=== PATIENT | male | born 1980 | race Caucasian/White ===

== ENCOUNTER → 2019-03-19 09:59 | Outpatient (CLI) | payer MEDICAID, SELFPAY ==
[2019-03-19 09:25] VITALS: BMI 43.7
[2019-03-19 12:37] LABS: Absolute Lymphocyte Count 1.28 X10^3/uL (0.83-4.51); Absolute Neutrophil Count 5.9 X10^3/uL (2.0-7.7); Basophil# 0.04 X10^3/uL; Basophil% 0.5 % (0-1); Eosinophil# 0.06 X10^3/uL; Eosinophils% 0.8 % (0-5); Hematocrit 45.1 % (40-54); Hemoglobin 14.8 g/dL (13.0-16.5); Lymphocyte # 1.28 X10^3/ul (4.0); Lymphocyte % 16.3 % (19-41); Mean Corp Hgb Conc 32.8 g/dL (32-36); Mean Corpuscular Hgb 29.7 pg (27.0-32.0); Mean Corpuscular Volume 90.4 fL (80-94); Monocyte# 0.54 X10^3/uL; Monocyte% 6.9 % (0-10); NRBC Flagged by Analyzer 0 % (0-5); Neutrophil # 5.91 X10^3/uL (2.7-7.7); Neutrophil % 75.1 % (47-70); Platelet Count 270 K/mm3 (150-450); RBC Distribution Width CV 13.5 % (11.6-14.6); RBC Distribution Width SD 44.3 fl (35.1-43.9); Red Blood Count 4.99 M/mm3 (4.6-6.2); White Blood Count 7.9 K/mm3 (4.4-11.0)
[2019-03-19 12:55] LABS: ALB/GLOB Ratio 0.9 RATIO (0.9-2.4); AST(SGOT) 23 U/L (15-37); Alanine Aminotransfer ALT/SGPT 35 U/L (16-61); Albumin, Serum 4.1 g/dL (3.2-5.0); Alkaline Phosphatase 123 U/L (45-117); Anion Gap 9 (5-15); BUN 17 mg/dL (7-18); BUN/Creat Ratio 15.5 RATIO (10-20); Calcium,Total 9.5 mg/dL (8.5-10.1); Chloride 106 mmol/L (98-107); Cholesterol 311 mg/dL (200); EST Glomerular Filtration Rate 79 mL/min (>60); Est Glom Filt Rate - Afr Amer 96 mL/min (>60); Globulin 4.4 g/dL (2.2-4.2); Glucose 91 mg/dL (74-106); High Density Lipoprotein 58 mg/dL; Potassium 4.1 mmol/L (3.5-5.1); Protein, Total 8.5 g/dL (6.4-8.2); Sodium Level 139 mmol/L (136-145); Thyroid Stim Hormone (TSH) 2.94 uIU/mL (0.358-3.74); Triglycerides 133 mg/dL; Very Low Density Lipoprotein 27 mg/dL (5-40)
[2019-03-19 13:35] LABS: Hepatitis B Surface Antigen Non-Reactive (Nonreactive); Hepatitis C Antibody Non-Reactive (Nonreactive)
== END ==
PROVIDERS: PCP Internal Medicine; Referring Provider Nurse Practitioner Family; Visit Provider Nurse Practitioner Family
DX: I10 Essential (primary) hypertension (principal); F19.10 Other psychoactive substance abuse, uncomplicated
CPT/HCPCS: 36415; 80053; 80061; 84443; 85025; 86803; 87340

== ENCOUNTER → 2020-04-14 10:26 | Outpatient (CLI) | payer MEDICAID, SELFPAY ==
[2020-04-14 09:43] VITALS: BMI 57.7
[2020-04-14 13:12] LABS: ALB/GLOB Ratio 0.9 RATIO (0.9-2.4); AST(SGOT) 29 U/L (15-37); Alanine Aminotransfer ALT/SGPT 42 U/L (16-61); Albumin, Serum 3.9 g/dL (3.2-5.0); Alkaline Phosphatase 146 U/L (45-117); Anion Gap 10 (5-15); BUN 17 mg/dL (7-18); Calcium,Total 9.4 mg/dL (8.5-10.1); Chloride 104 mmol/L (98-107); Cholesterol 234 mg/dL (200); Creatinine, Serum 1.21 mg/dL (0.70-1.30); EST Glomerular Filtration Rate 70 mL/min (>60); Est Glom Filt Rate - Afr Amer 85 mL/min (>60); Globulin 4.4 g/dL (2.2-4.2); Glucose 99 mg/dL (74-106); High Density Lipoprotein 46 mg/dL; Potassium 4.1 mmol/L (3.5-5.1); Protein, Total 8.3 g/dL (6.4-8.2); Sodium Level 138 mmol/L (136-145); Triglycerides 250 mg/dL; Very Low Density Lipoprotein 50 mg/dL (5-40)
== END ==
PROVIDERS: PCP Internal Medicine; Referring Provider Nurse Practitioner Family; Visit Provider Nurse Practitioner Family
DX: I10 Essential (primary) hypertension (principal); E78.5 Hyperlipidemia, unspecified
CPT/HCPCS: 36415; 80053; 80061

== ENCOUNTER → 2020-04-17 11:41 | Outpatient (CLI) | payer MEDICAID, SELFPAY ==
[2020-04-14 09:43] VITALS: BMI 57.7
--- NOTE | 2020-04-17 11:46 | RAD_ITS ---
STUDY: X-RAY - LUMBAR SPINE REASON FOR EXAM: Male, 39 years old. Pt states lower back pain x 1 week, no known injury, right sided sciatica TECHNIQUE: 3 view(s) of the lumbar spine were obtained. COMPARISON: None FINDINGS: Normal lumbar lordosis. There is no substantial scoliosis. There is a normal alignment of the vertebrae. There is multilevel endplate spondylosis of the lumbar vertebrae. Normal disc space heights. The soft tissue structures are unremarkable. RAD/Lumbar Spine 2 or 3 Views IMPRESSION: Multilevel endplate spondylosis. Electronically Signed: Rj Medina MD at 15:24 EST , Service support ,
--- NOTE | 2020-04-17 11:47 | EKG12_ITS ---
Test Reason : HTN Blood Pressure : / mmHG Vent. Rate : 104 BPM Atrial Rate : 104 BPM P-R Int : 138 ms QRS Dur : 100 ms QT Int : 352 ms P-R-T Axes : 034 028 033 degrees QTc Int : 462 ms Sinus tachycardia Otherwise normal ECG Confirmed by RICHARD MARIN, ANA CRISTINA ([id number]), assistant film editor RAJAN WALTER ([id number]) on 04/18/2020 11:21:28 AM Referred By: Abdulkadir Mraina Confirmed By:ANA CRISTINA RAMOS MD
== END ==
PROVIDERS: PCP Internal Medicine; Referring Provider Nurse Practitioner Family; Visit Provider Nurse Practitioner Family
DX: M54.41 Lumbago with sciatica, right side (principal); G89.29 Other chronic pain; I10 Essential (primary) hypertension; E78.5 Hyperlipidemia, unspecified; F32.9 Major depressive disorder, single episode, unspecified; E66.01 Morbid (severe) obesity due to excess calories; Z68.44 Body mass index [BMI] 60.0-69.9, adult
CPT/HCPCS: 72100; 93005

== ENCOUNTER 2020-05-15 14:16 | Outpatient (RCR) | payer MEDICAID, SELFPAY ==
[2020-04-14 09:43] VITALS: BMI 57.7
== END 2020-05-24 23:59 ==
LOC: NS 14:16
PROVIDERS: PCP Internal Medicine; Visit Provider Nurse Practitioner Family
DX: Z71.3 Dietary counseling and surveillance (principal); E66.01 Morbid (severe) obesity due to excess calories; Z68.43 Body mass index [BMI] 50.0-59.9, adult
CPT/HCPCS: 97802

== ENCOUNTER 2020-05-29 11:56 | Outpatient (RCR) | payer MEDICAID, SELFPAY ==
[2020-05-16 09:30] VITALS: BMI 56.7
== END 2020-06-23 23:59 ==
LOC: NS 11:56
PROVIDERS: PCP Internal Medicine; Visit Provider Nurse Practitioner Family
DX: Z71.3 Dietary counseling and surveillance (principal); E66.01 Morbid (severe) obesity due to excess calories; Z68.44 Body mass index [BMI] 60.0-69.9, adult
CPT/HCPCS: 97803

== ENCOUNTER → 2020-05-30 09:47 | Outpatient (CLI) | payer MEDICAID, SELFPAY ==
[2020-05-16 09:30] VITALS: BMI 56.7
[2020-05-30 12:13] LABS: Absolute Lymphocyte Count 1.77 X10^3/uL (0.83-4.51); Absolute Neutrophil Count 4.3 X10^3/uL (2.0-7.7); Basophil# 0.03 X10^3/uL; Basophil% 0.4 % (0-1); Eosinophil# 0.09 X10^3/uL; Eosinophils% 1.3 % (0-5); Hematocrit 41.8 % (40-54); Hemoglobin 13.1 g/dL (13.0-16.5); Lymphocyte # 1.77 X10^3/ul (4.0); Lymphocyte % 26.1 % (19-41); Mean Corp Hgb Conc 31.3 g/dL (32-36); Mean Corpuscular Hgb 28.8 pg (27.0-32.0); Mean Corpuscular Volume 91.9 fL (80-94); Mean Platelet Vol. 11.1 fl (6.2-12.0); Monocyte# 0.58 X10^3/uL; Monocyte% 8.6 % (0-10); NRBC Flagged by Analyzer 0 % (0-5); Neutrophil # 4.27 X10^3/uL (2.7-7.7); Neutrophil % 63.2 % (47-70); Platelet Count 257 K/mm3 (150-450); RBC Distribution Width CV 14.2 % (11.6-14.6); RBC Distribution Width SD 47.8 fl (35.1-43.9); Red Blood Count 4.55 M/mm3 (4.6-6.2); White Blood Count 6.8 K/mm3 (4.4-11.0)
[2020-05-30 12:42] LABS: Hemoglobin A1c 5.3 % (3.8-5.6)
[2020-05-30 12:55] LABS: Anion Gap 8 (5-15); BUN 20 mg/dL (7-18); BUN/Creat Ratio 15.5 RATIO (10-20); Calcium,Total 9.2 mg/dL (8.5-10.1); Chloride 105 mmol/L (98-107); Creatinine, Serum 1.29 mg/dL (0.70-1.30); EST Glomerular Filtration Rate 65 mL/min (>60); Est Glom Filt Rate - Afr Amer 79 mL/min (>60); Glucose 100 mg/dL (74-106); Potassium 4.3 mmol/L (3.5-5.1); Sodium Level 137 mmol/L (136-145)
[2020-05-30 16:20] LABS: T4 Free Direct 1.02 ng/dL (0.76-1.46)
== END ==
PROVIDERS: PCP Internal Medicine; Referring Provider Nurse Practitioner Family; Visit Provider Nurse Practitioner Family
DX: I10 Essential (primary) hypertension (principal); E78.5 Hyperlipidemia, unspecified; F32.9 Major depressive disorder, single episode, unspecified; M54.41 Lumbago with sciatica, right side; G89.29 Other chronic pain; R79.89 Other specified abnormal findings of blood chemistry; E66.01 Morbid (severe) obesity due to excess calories; Z68.44 Body mass index [BMI] 60.0-69.9, adult
CPT/HCPCS: 36415; 80048; 83036; 84439; 84443; 85025

== ENCOUNTER → 2020-08-09 10:01 | Outpatient (CLI) | payer MEDICAID, SELFPAY ==
[2020-08-09 09:44] VITALS: BMI 56.7
[2020-08-09 12:44] LABS: AST(SGOT) 20 U/L (15-37); Alanine Aminotransfer ALT/SGPT 29 U/L (16-61); Alkaline Phosphatase 126 U/L (45-117); Anion Gap 9 (5-15); BUN 18 mg/dL (7-18); Calcium,Total 9.6 mg/dL (8.5-10.1); Chloride 106 mmol/L (98-107); Cholesterol 207 mg/dL (200); EST Glomerular Filtration Rate 71 mL/min (>60); Est Glom Filt Rate - Afr Amer 86 mL/min (>60); Globulin 4.2 g/dL (2.2-4.2); Glucose 100 mg/dL (74-106); High Density Lipoprotein 43 mg/dL; Potassium 4.5 mmol/L (3.5-5.1); Protein, Total 8.2 g/dL (6.4-8.2); Sodium Level 138 mmol/L (136-145); Thyroid Stim Hormone (TSH) 2.16 uIU/mL (0.358-3.74); Triglycerides 165 mg/dL; Very Low Density Lipoprotein 33 mg/dL (5-40)
== END ==
PROVIDERS: PCP Internal Medicine; Referring Provider Nurse Practitioner Family; Visit Provider Nurse Practitioner Family
DX: I10 Essential (primary) hypertension (principal); E03.9 Hypothyroidism, unspecified; E78.5 Hyperlipidemia, unspecified; F32.9 Major depressive disorder, single episode, unspecified
CPT/HCPCS: 36415; 80053; 80061; 84443

== ENCOUNTER → 2020-08-31 20:00 | Outpatient (CLI) | payer MEDICAID, SELFPAY ==
[2020-05-16 09:30] VITALS: BMI 56.7
== END ==
PROVIDERS: PCP Internal Medicine; Referring Provider Nurse Practitioner Family; Visit Provider Nurse Practitioner Family
DX: G47.33 Obstructive sleep apnea (adult) (pediatric) (principal)
CPT/HCPCS: 95810

== ENCOUNTER → 2020-11-02 09:33 | Outpatient (CLI) | payer MEDICAID, SELFPAY ==
[2020-11-02 12:20] LABS: Vitamin B12 322 pg/mL (211-911); Vitamin D,25 Hydroxy 29.9 ng/mL
[2020-11-07 13:10] LABS: Testosterone, % Free 2.87 % (1.50-4.20); Testosterone, Total 237 ng/dL (264-916)
== END ==
PROVIDERS: PCP Internal Medicine; Referring Provider Nurse Practitioner Family; Visit Provider Nurse Practitioner Family
DX: R53.83 Other fatigue (principal); E56.9 Vitamin deficiency, unspecified; E03.9 Hypothyroidism, unspecified
CPT/HCPCS: 36415; 82306; 82607; 84402; 84403; 84443

== ENCOUNTER → 2020-11-28 20:00 | Outpatient (CLI) | payer MEDICAID, SELFPAY | PROVIDERS: PCP Internal Medicine; Visit Provider Nurse Practitioner Family | DX: G47.33 Obstructive sleep apnea (adult) (pediatric) (principal) | CPT/HCPCS: 95811 ==

== ENCOUNTER 2021-04-13 12:00 | Outpatient (CLI) | payer MEDICAID, SELFPAY ==
[2021-04-13 15:21] LABS: Thyroid Stim Hormone (TSH) 2.67 uIU/mL (0.358-3.74)
== END 2021-04-13 23:59 | disposition home or self-care (01) ==
LOC: BIMLAB 12:00
PROVIDERS: PCP Internal Medicine; Referring Provider Nurse Practitioner Family; Visit Provider Nurse Practitioner Family
DX: F41.9 Anxiety disorder, unspecified (principal)
CPT/HCPCS: 36415; 84443

== ENCOUNTER → 2021-06-22 | Outpatient (CLI) | payer MEDICAID, SELFPAY ==
[2021-06-22 12:09] LABS: Absolute Lymphocyte Count 1.47 X10^3/uL (0.83-4.51); Basophil# 0.02 X10^3/uL; Basophil% 0.3 % (0-1); Eosinophil# 0.09 X10^3/uL; Eosinophils% 1.5 % (0-5); Hematocrit 40.1 % (40-54); Lymphocyte # 1.47 X10^3/ul (0.83-4.51); Lymphocyte % 24.1 % (19-41); Mean Corp Hgb Conc 32.4 g/dL (32-36); Mean Corpuscular Hgb 29.9 pg (27.0-32.0); Mean Corpuscular Volume 92.2 fL (80-94); Mean Platelet Vol. 11.8 fl (6.2-12.0); Monocyte# 0.55 X10^3/uL; NRBC Flagged by Analyzer 0 % (0-5); Neutrophil # 3.96 X10^3/uL (2.7-7.7); Neutrophil % 64.8 % (47-70); Platelet Count 232 K/mm3 (150-450); Red Blood Count 4.35 M/mm3 (4.6-6.2); White Blood Count 6.1 K/mm3 (4.4-11.0)
[2021-06-22 12:32] LABS: ALB/GLOB Ratio 1.2 RATIO (0.9-2.4); AST(SGOT) 19 U/L (15-37); Alanine Aminotransfer ALT/SGPT 22 U/L (16-61); Alkaline Phosphatase 102 U/L (45-117); Anion Gap 6 (5-15); BUN 24 mg/dL (7-18); BUN/Creat Ratio 21.1 RATIO (10-20); Calcium,Total 8.9 mg/dL (8.5-10.1); Chloride 107 mmol/L (98-107); Cholesterol 183 mg/dL (200); Creatinine, Serum 1.14 mg/dL (0.70-1.30); EST Glomerular Filtration Rate 75 mL/min (>60); Est Glom Filt Rate - Afr Amer 91 mL/min (>60); Globulin 3.4 g/dL (2.2-4.2); Glucose 109 mg/dL (74-106); High Density Lipoprotein 53 mg/dL; Protein, Total 7.4 g/dL (6.4-8.2); Sodium Level 138 mmol/L (136-145); Thyroid Stim Hormone (TSH) 2.99 uIU/mL (0.358-3.74); Triglycerides 138 mg/dL; Very Low Density Lipoprotein 28 mg/dL (5-40)
== END | disposition home or self-care (01) ==
LOC: BIMLAB 09:23
PROVIDERS: PCP Internal Medicine; Referring Provider Nurse Practitioner Family; Visit Provider Nurse Practitioner Family
DX: F31.30 Bipolar disorder, current episode depressed, mild or moderate severity, unspecified (principal); F41.9 Anxiety disorder, unspecified; E03.9 Hypothyroidism, unspecified; E78.5 Hyperlipidemia, unspecified; I10 Essential (primary) hypertension
CPT/HCPCS: 36415; 80053; 80061; 84443; 85025

== ENCOUNTER → 2021-08-24 | Outpatient (CLI) | payer MEDICAID, SELFPAY ==
[2021-08-24 12:52] LABS: Vitamin B12 262 pg/mL (211-911); Vitamin D,25 Hydroxy 33.8 ng/mL
[2021-08-24 12:55] LABS: Thyroid Stim Hormone (TSH) 2.61 uIU/mL (0.358-3.74)
[2021-08-28 13:07] LABS: Testosterone, Free 4.68 ng/dL (5.00-21.00)
[2021-08-28 16:29] LABS: Testosterone, % Free 1.57 % (1.50-4.20); Testosterone, Total 298 ng/dL (264-916)
== END | disposition home or self-care (01) ==
LOC: BIMLAB 08:55
PROVIDERS: PCP Internal Medicine; Referring Provider Nurse Practitioner Family; Visit Provider Nurse Practitioner Family
DX: E88.9 Metabolic disorder, unspecified (principal); F31.30 Bipolar disorder, current episode depressed, mild or moderate severity, unspecified; E56.9 Vitamin deficiency, unspecified; E03.9 Hypothyroidism, unspecified
CPT/HCPCS: 36415; 82306; 82607; 84402; 84403; 84443

== ENCOUNTER → 2021-11-20 | Outpatient (CLI) | payer MEDICAID, SELFPAY | END | disposition home or self-care (01) | LOC: LABSPEC 15:29 | PROVIDERS: PCP Internal Medicine; Referring Provider Nurse Practitioner Family; Visit Provider Nurse Practitioner Family | DX: R50.9 Fever, unspecified (principal) | CPT/HCPCS: 87635; 87633; U0003; U0005 ==

== ENCOUNTER → 2022-03-12 | Outpatient (CLI) | payer MEDICAID, SELFPAY ==
[2022-03-12 16:59] LABS: Absolute Lymphocyte Count 1.53 X10^3/uL (0.83-4.51); Absolute Neutrophil Count 3.4 X10^3/uL (2.0-7.7); Basophil# 0.01 X10^3/uL; Basophil% 0.2 % (0-1); Eosinophil# 0.07 X10^3/uL; Eosinophils% 1.3 % (0-5); Hematocrit 39.6 % (40-54); Hemoglobin 13.1 g/dL (13.0-16.5); Lymphocyte # 1.53 X10^3/ul (0.83-4.51); Lymphocyte % 28.6 % (19-41); Mean Corp Hgb Conc 33.1 g/dL (32-36); Mean Corpuscular Hgb 30.2 pg (27.0-32.0); Mean Corpuscular Volume 91.2 fL (80-94); Mean Platelet Vol. 10.8 fl (6.2-12.0); Monocyte# 0.31 X10^3/uL; Monocyte% 5.8 % (0-10); NRBC Flagged by Analyzer 0 % (0-5); Neutrophil # 3.42 X10^3/uL (2.7-7.7); Neutrophil % 63.9 % (47-70); Platelet Count 216 K/mm3 (150-450); RBC Distribution Width CV 11.9 % (11.6-14.6); RBC Distribution Width SD 39.8 fl (35.1-43.9); Red Blood Count 4.34 M/mm3 (4.6-6.2); White Blood Count 5.4 K/mm3 (4.4-11.0)
[2022-03-12 17:03] LABS: Hemoglobin A1c 4.9 % (3.8-5.6)
[2022-03-12 17:28] LABS: Vitamin B12 423 pg/mL (211-911); Vitamin D,25 Hydroxy 20.2 ng/mL
[2022-03-12 17:32] LABS: ALB/GLOB Ratio 1.1 RATIO (0.9-2.4); AST(SGOT) 18 U/L (15-37); Alanine Aminotransfer ALT/SGPT 23 U/L (16-61); Albumin, Serum 4.2 g/dL (3.2-5.0); Alkaline Phosphatase 91 U/L (45-117); Anion Gap 8 (5-15); BUN 20 mg/dL (7-18); BUN/Creat Ratio 18.9 RATIO (10-20); Calcium,Total 9.1 mg/dL (8.5-10.1); Chloride 102 mmol/L (98-107); Cholesterol 227 mg/dL (200); Creatinine, Serum 1.06 mg/dL (0.70-1.30); EST Glomerular Filtration Rate 81 mL/min (>60); Est Glom Filt Rate - Afr Amer 98 mL/min (>60); Globulin 3.8 g/dL (2.2-4.2); Glucose 88 mg/dL (74-106); High Density Lipoprotein 64 mg/dL; Potassium 4.3 mmol/L (3.5-5.1); Sodium Level 136 mmol/L (136-145); Thyroid Stim Hormone (TSH) 2.02 uIU/mL (0.358-3.74); Triglycerides 115 mg/dL; Very Low Density Lipoprotein 23 mg/dL (5-40)
== END | disposition home or self-care (01) ==
LOC: BIMLAB 16:18
PROVIDERS: PCP Internal Medicine; Referring Provider Nurse Practitioner Family; Visit Provider Nurse Practitioner Family
DX: E56.9 Vitamin deficiency, unspecified (principal); F31.30 Bipolar disorder, current episode depressed, mild or moderate severity, unspecified; E03.9 Hypothyroidism, unspecified; E78.5 Hyperlipidemia, unspecified; I10 Essential (primary) hypertension
CPT/HCPCS: 36415; 80053; 80061; 82306; 82607; 83036; 84443; 85025

== ENCOUNTER → 2022-12-18 | Outpatient (CLI) | payer BC, SELFPAY ==
[2022-12-18 18:20] LABS: Anion Gap 5 (5-15); BUN 28 mg/dL (7-18); BUN/Creat Ratio 27.7 RATIO (10-20); Calcium,Total 9.1 mg/dL (8.5-10.1); Chloride 104 mmol/L (98-107); Creatinine, Serum 1.01 mg/dL (0.70-1.30); EST Glomerular Filtration Rate 86 mL/min (>60); Est Glom Filt Rate - Afr Amer 103 mL/min (>60); Glucose 84 mg/dL (74-106); Potassium 4.6 mmol/L (3.5-5.1); Sodium Level 137 mmol/L (136-145)
== END | disposition home or self-care (01) ==
LOC: BIMLAB 16:00
PROVIDERS: PCP Internal Medicine; Referring Provider Internal Medicine; Visit Provider Internal Medicine
DX: E03.9 Hypothyroidism, unspecified (principal); I10 Essential (primary) hypertension
CPT/HCPCS: 36415; 80048; 84443

== ENCOUNTER → 2023-03-27 | Outpatient (CLI) | payer BC, SELFPAY ==
[2023-03-27 12:19] LABS: Absolute Lymphocyte Count 0.22 X10^3/uL (0.83-4.51); Absolute Neutrophil Count 3.1 X10^3/uL (2.0-7.7); Basophil# 0.01 X10^3/uL; Basophil% 0.3 % (0-1); Eosinophil# 0.02 X10^3/uL; Eosinophils% 0.5 % (0-5); Hematocrit 37.5 % (40-54); Hemoglobin 12.2 g/dL (13.0-16.5); Lymphocyte # 0.22 X10^3/ul (0.83-4.51); Lymphocyte % 5.7 % (19-41); Mean Corp Hgb Conc 32.5 g/dL (32-36); Mean Corpuscular Hgb 30.3 pg (27.0-32.0); Mean Corpuscular Volume 93.1 fL (80-94); Mean Platelet Vol. 11.1 fl (6.2-12.0); Monocyte# 0.56 X10^3/uL; Monocyte% 14.4 % (0-10); NRBC Flagged by Analyzer 0 % (0-5); Neutrophil # 3.05 X10^3/uL (2.7-7.7); Neutrophil % 78.6 % (47-70); POSITIVE DIFFERENTIAL YES; Platelet Count 173 K/mm3 (150-450); RBC Distribution Width SD 44.7 fl (35.1-43.9); Red Blood Count 4.03 M/mm3 (4.6-6.2); White Blood Count 3.9 K/mm3 (4.4-11.0)
[2023-03-27 12:42] LABS: D-Dimer Quantitative (DVT/PE) 1.02 FEU/ug/m (0.27-0.49)
== END | disposition home or self-care (01) ==
LOC: BIMLAB 11:40
PROVIDERS: PCP Internal Medicine; Referring Provider Nurse Practitioner; Visit Provider Nurse Practitioner
DX: I26.99 Other pulmonary embolism without acute cor pulmonale (principal); R05.9 Cough, unspecified; R07.81 Pleurodynia
CPT/HCPCS: 36415; 85025; 85379; 87631

== ENCOUNTER → 2023-03-28 | Outpatient (CLI) | payer BC, SELFPAY ==
--- NOTE | 2023-03-28 10:40 | CT_ITS ---
STUDY: CTA CHEST REASON FOR EXAM: Male, 42 years old. Elevated d-dimer, cough, pleuritic chest pain, hx -- hx of PE RADIATION DOSAGE (If Supplied By Facility): CTDIvol = ( 12.79 ) mGy, DLP = ( 557.21 ) mGycm TECHNIQUE: The examination was performed with the intravenous administration of IV 100mL Isovue-370. Post-processing of the angiographic images was performed, with multiplanar reformation and 3D reconstruction. Individualized dose optimization techniques were used for this CT. COMPARISON: None. FINDINGS: Normal enhancement of the main pulmonary artery and right and left pulmonary arteries. Normal enhancement of the bilateral peripheral pulmonary arteries. There is no demonstrated pulmonary embolism. Normal thoracic aorta and visualized great vessels. There is no demonstrated aortic dissection. Normal heart and pericardium. Normal mediastinum. Normal hilar regions. Normal visualized trachea and bronchi. The lungs are well expanded. Normal pulmonary parenchyma. Normal pleura. Normal chest wall structures. There are degenerative changes of thoracic spine. Small hiatal hernia. CT/CTA Chest W/WO Contrast IMPRESSION: Normal CTA chest examination, without a demonstrated pulmonary embolism or arterial dissection. Electronically Signed: Rj Medina MD at 12:02 [facility] ,
[2023-03-28 10:58] LABS: CREATININE FINGERSTICK < 1.0 mg/dL (0.70-1.30); EGFR FINGERSTICK > 60.0000 mL/min (>60)
== END | disposition home or self-care (01) ==
LOC: CT 10:30
PROVIDERS: PCP Internal Medicine; Referring Provider Nurse Practitioner; Visit Provider Nurse Practitioner
DX: R07.81 Pleurodynia (principal); R05.9 Cough, unspecified; R79.1 Abnormal coagulation profile; Z86.711 Personal history of pulmonary embolism
CPT/HCPCS: 71275; Q9967

== ENCOUNTER → 2023-04-10 | Outpatient (CLI) | payer BC, SELFPAY ==
[2023-04-10 17:28] LABS: ALB/GLOB Ratio 1.3 RATIO (0.9-2.4); AST(SGOT) 23 U/L (15-37); Alanine Aminotransfer ALT/SGPT 22 U/L (16-61); Albumin, Serum 4.2 g/dL (3.2-5.0); Alkaline Phosphatase 93 U/L (45-117); Anion Gap 3 (5-15); BUN 17 mg/dL (7-18); BUN/Creat Ratio 15.7 RATIO (10-20); Calcium,Total 9.1 mg/dL (8.5-10.1); Chloride 105 mmol/L (98-107); Cholesterol 211 mg/dL (200); Creatinine, Serum 1.08 mg/dL (0.70-1.30); EST Glomerular Filtration Rate 79 mL/min (>60); Est Glom Filt Rate - Afr Amer 96 mL/min (>60); Globulin 3.2 g/dL (2.2-4.2); Glucose 92 mg/dL (74-106); High Density Lipoprotein 81 mg/dL; Potassium 4.9 mmol/L (3.5-5.1); Protein, Total 7.4 g/dL (6.4-8.2); Sodium Level 138 mmol/L (136-145); Thyroid Stim Hormone (TSH) 2.84 uIU/mL (0.358-3.74); Triglycerides 53 mg/dL; Very Low Density Lipoprotein 11 mg/dL (5-40)
--- OUTSIDE RECORDS SUMMARY | 2023-04-10 21:12 | XMS RPT_ITS | CCD ---
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 Name Role Phone MARTHALYNN ORTIZ Admitting Unavailable LYNN THOMAS Attending Unavailable LYNN THOMAS Primary Care Unavailable MESFIN RICKS Consulting Unavailable PROVIDER, UNKNOWN Consulting Unavailable PROVIDER, UNKNOWN Consulting Unavailable PROVIDER, UNKNOWN Consulting Unavailable LEILA SAWYER CNP Admitting Unavailable LEILA SAWYER CNP Attending Unavailable LEILA SAWYER CNP Primary Care Unavailable MESFIN RICKS Consulting Unavailable PROVIDER, UNKNOWN Consulting Unavailable PROVIDER, UNKNOWN Consulting Unavailable PROVIDER, UNKNOWN Consulting Unavailable VAHID GAVIRIA MD Admitting Unavailable VAHID GAVIRIA MD Attending Unavailable VAHID GAVIRIA MD Primary Care Unavailable LEILA SAWYER CNP Referring Unavailable LEILA SAWYER CNP Consulting Unavailable PROVIDER, UNKNOWN Consulting Unavailable PROVIDER, UNKNOWN Consulting Unavailable PRESTON LANGSTON Admitting Unavailable PRESTON LANGSTON Attending Unavailable LEILA SAWYER CNP Referring Unavailable PRESTON LANGSTON Primary Care Unavailable LEILA SAWYER CNP Consulting Unavailable PROVIDER, UNKNOWN Consulting Unavailable PROVIDER, UNKNOWN Consulting Unavailable SILVERIO BEER MAKER-LEILA MONCADA Primary Care Physicia n Allergies Allergy Classification Reported Allergen(s) Allergy Type Date of Onset Reaction(s) Facility (1 source) Penicillins Drug allergy (disorder) [facility] Repository (2 sources) Penicillin; Translations: [penicillin] Drug Allergy [facility] Medications Current Medications Medication Drug Class(es) Dates Sig (Normalized) Sig (Original) BuPROPion (Eqv-Wellbutrin SR) 150 mg/12 hours oral tablet, extended release (1 source) Start: 05-23-19 take 1 tablet by mouth once daily BuPROPion (Eqv-Wellbutrin SR) 150 mg/12 hours oral tablet, extended release Dose : 150 mg =, Oral, qDay, 0 Refill(s) Start Date: 05/22/21 Status: Ordered busPIRone hydrochloride 15 mg oral tablet (1 source) Start: 05-23-19 busPIRone 15 mg oral tablet Dose : 15 mg = 1 tab(s), Oral, TID, 0 Refill(s) Start Date: 05/22/21 Status: Ordered hydroCHLOROthiazide 25 mg oral tablet (1 source) Thiazide Diuretic Start: 05-23-19 hydroCHLOROthiazide 25 mg oral tablet Dose : 25 mg = 1 tab(s), Oral, qDay, 0 Refill(s) Start Date: 05/22/21 Status: Ordered hydrOXYzine hydrochloride 25 mg oral tablet (1 source) Antihistamine Start: 05-23-19 hydrOXYzine hydrochloride 25 mg oral tablet Dose : 25 mg = 1 tab(s), Oral, Daily, # 0 tab(s), 0 Refill(s) Start Date: 05/22/21 Status: Ordered lisinopril 40 mg oral tablet (1 source) Angiotensin Converting Enzyme Inhibitor Start: 05-23-19 lisinopril 40 mg oral tablet Dose : 40 mg = 1 tab(s), Oral, qDay, # 30 tab(s), 0 Refill(s) Start Date: 05/22/21 Status: Ordered propranolol hydrochloride 20 mg oral tablet (1 source) beta-Adrenergic Irina Start: 05-23-19 propranolol 20 mg oral tablet Dose : 20 mg = 1 tab(s), Oral, BID, # 180 tab(s), 0 Refill(s) Start Date: 05/22/21 Status: Ordered rosuvastatin calcium 10 mg oral tablet (1 source) HMG-CoA Reductase Inhibitor Start: 05-23-19 rosuvastatin 10 mg oral tablet Dose : 10 mg = 1 tab(s), Oral, qDay, # 30 tab(s), 0 Refill(s) Start Date: 05/22/21 Status: Ordered Completed/Discontinued Medications Medication Drug Class(es) Dates Sig (Normalized) Sig (Original) LORazepam 0.5 mg oral tablet (2 sources) Benzodiazepine Start: 05-22-2021 LORazepam 0.5 mg oral tablet Dose : 0.25 mg = 0.5 tab(s), Oral, BID, 0 Refill(s), 163.2 Start Date: 05/22/21 Status: Ordered Problems Active Problems Problem Classification Problem Date Documented Da te Episodic/Chronic Anxiety disorders (1 source) Anxiety disorder; Translations: [Anxiety disorder, unspecified] Onset: 04-09-2021 Chronic Conditions associated with dizziness or vertigo (1 source) Dizziness and giddiness; Translations: [Dizziness and giddiness] Onset: 04-09-2021 Episodic Mood disorders (1 source) Major depressive disorder, single episode, unspecified; Translations: [Major depressive disorder, single episode, unspecified] Onset: 10-08-2018 Other lower respiratory disease (1 source) Dyspnea; Translations: [Dyspnea, unspecified] Onset: 04-09-2021 Episodic Other screening for suspected conditions (not mental disorders or infectious disease) (2 sources) Encounter for screening for lipoid disorders; Translations: [Other specified abnormal findings of blood chemistry] Onset: 02-24-2018 Episodic Past or Other Problems Problem Classification Problem Date Documented Da te Episodic/Chronic Other lower respiratory disease (2 sources) Shortness of breath; Translations: [Shortness of breath] Onset: 02-24-2018 Episodic Other lower respiratory disease (1 source) Solitary pulmonary nodule; Translations: [Solitary pulmonary nodule] Onset: 02-24-2018 Episodic Pulmonary heart disease (1 source) Other pulmonary embolism without acute cor pulmonale; Translations: [Other pulmonary embolism without acute cor pulmonale] Onset: 02-24-2018 Episodic Syncope (1 source) Syncope and collapse; Translations: [Syncope and collapse] Onset: 02-24-2018 Episodic Results Test Name Value Interpretation Reference Range Facil ity Vital Signs Date Time Vital Sign Value Performing Clinician Faci lity 05-22-2021 09:45-0400 Body temperature 98.42 [degF] CHILO WHITMORE DO [facility] 05-22-2021 09:45-0400 Body weight 163.2 [facility] 05-22-2021 09:45-0400 Diastolic blood pressure 101 mm[Hg] CHILO CRT DO [facility] 05-22-2021 09:45-0400 Heart rate 77 /min CHILO CRT DO [facility] 05-22-2021 09:45-0400 Mean blood pressure 119 mm[Hg] CHILO CRT DO [facility] 05-22-2021 09:45-0400 Respiratory rate 16 /min CHILO CRT DO [facility] 05-22-2021 09:45-0400 Systolic blood pressure 156 mm[Hg] CHILO WHITMORE DO [facility] 04-09-2021 13:59-0500 Diastolic blood pressure 90 mm[Hg] DR BRADY PASCAL MD [facility] 04-09-2021 13:59-0500 Heart rate 88 /min DR BRADY PASCAL MD [facility] 04-09-2021 13:59-0500 Respiratory rate 20 /min DR BRADY PASCAL MD [facility] 04-09-2021 13:59-0500 Systolic blood pressure 159 mm[Hg] DR BRADY PASCAL MD [facility] 04-09-2021 13:47-0500 Diastolic blood pressure 83 mm[Hg] DR BRADY PASCAL MD [facility] 04-09-2021 13:47-0500 Heart rate 96 /min DR BRADY PASCAL MD [facility] 04-09-2021 13:47-0500 Respiratory rate 20 /min DR BRADY PASCAL MD [facility] 04-09-2021 13:47-0500 Systolic blood pressure 174 mm[Hg] DR BRADY PASCAL MD [facility] 04-09-2021 12:45-0500 Body temperature 98.06 [degF] DR BRADY PASCAL MD [facility] 04-09-2021 12:45-0500 Diastolic blood pressure 93 mm[Hg] DR BRADY PASCAL MD [facility] 04-09-2021 12:45-0500 Heart rate 98 /min DR BRADY PASCAL MD [facility] 04-09-2021 12:45-0500 Respiratory rate 22 /min DR BRADY PASCAL MD [facility] 04-09-2021 12:45-0500 Systolic blood pressure 190 mm[Hg] DR BRADY PASCAL MD [facility] Encounters Encounter Date Encounter Type Care Provider Facility Start: 05-22-2021 End: 05-22-2021 Emergency department patient visit CHILO WHITMORE [facility] Start: 04-09-2021 End: 04-09-2021 Emergency department patient visit DR BRADY PASCAL MD [facility] Start: 10-08-2018 End: 10-08-2018 Emergency department patient visit PRESTON LANGSTON [facility] Start: 10-08-2018 Patient encounter procedure LEILA SAWYER [facility] Start: 04-17-2018 End: 04-17-2018 [facility] Start: 02-24-2018 End: 02-24-2018 Emergency department patient visit LYNN THOMAS [facility] Procedures Date Procedure Procedure Detail Performing Clinician Start: 10-08-2018 Microscopic examinat ion of blood, culture LYNN THOMAS Payers Date Payer Category Payer Unknown [id number] 1980 Unknown [id number] 1980 Unknown [id number] 1980 Unknown [id number] Medicaid [id number] Unknown [id number] Social History Date Type Detail Facility [facility] Sex Assigned At [facility] Start: 05-22-2021 Tobacco smoking status Never s moked tobacco (finding) [facility] Functional Status Date Assessment Result Facility 05-22-2021 Functional Status [facility] Mental Status Date Assessment Result Facility 05-22-2021 Mental Status [facility] Discharge instructions 05-22-2021 Note Date & Type Note Facility 05-22-2021 Hospital Discharg e instructions Patient Education 05/22/2021 11:13:34 Blurred Vision Blurred Vision Blurred vision is when your vision is no longer sharp and you can t see small details. Any changes in your vision, whether sudden or over time, should be checked out by an eyelet cutter. Vision changes can be caused by many things. These include eye diseases, side effects of some medicines, or a condition such as diabetes. Never ignore vision changes. People often think that vision changes occur because they need more powerful vision correction. Many people then delay seeing their healthcare provider about their vision changes. But it s risky to delay care. If left untreated, some eye problems can lead to lasting (permanent) vision loss that can t be corrected with glasses. This can significantly reduce quality of life. Home care Make changes in your home to reduce the risk of falling: Keep walkways clear of objects you may trip over. Use nonslip pads under rugs. Brighter lighting in your home may help you see better. Don t walk in poorly lit areas. Be careful when stepping up and down from curbs and walking on uneven sidewalks. Follow-up care Follow up with an eyelet cutter or as advised. There are two types of eye doctors you can consult: Precision Grinder External. This is a licensed doctor of optometry. Optometrists are not medical doctors. They specialize in eye exams and may diagnose some eye problems. They also prescribe glasses and contact lenses. Risk Management Specialist. This is a medical doctor who specializes in eye care. Ophthalmologists diagnose and treat all eye diseases, prescribe medicines, and perform eye surgery. They may also prescribe glasses and contact lenses. An bin filler can provide a basic screening eye exam for much less cost than an wildlife protector. The bin filler can tell you if your condition needs the services of an wildlife protector. When to seek medical advice Call your healthcare provider right away if any of these occur: Sudden change in your vision Eye pain, redness, or discharge from your eyelid Blurriness doesn t get better, or it gets worse Dark spots in your field of vision Halos around lights Dots or strings (called floaters) moving across your field of vision Sudden flash of light inside your eye Vision dims Part or full vision loss [id number] [employer]. [address] [place] [address]. All rights reserved. This information is not intended as a substitute for professional medical care. Always follow your healthcare professional's instructions. Follow Up Care 05/22/2021 09:37:10 With:[facility] Address: [address] [place] [id number]- When:2-4 days With:[facility] Address: When:2-4 days [facility] Hospital Discharge instructions 04-09-2021 Note Date & Type Note Facility 04-09-2021 Hospital Discharg e instructions Patient Education 04/09/2021 14:01:12 Anxiety Reaction Anxiety Reaction Anxiety is the feeling we all get when we think something bad might happen. It is a normal response to stress and usually causes only a mild reaction. When anxiety becomes more severe, it can interfere with daily life. In some cases, you may not even be aware of what it is you re anxious about. There may also be a genetic link or it may be a learned behavior in the home. Both psychological and physical triggers cause stress reaction. It's often a response to fear or emotional stress, real or imagined. This stress may come from home, family, work, or social relationships. During an anxiety reaction, you may feel: Helpless Nervous Depressed Irritable Your body may show signs of anxiety in many ways. You may experience: Dry mouth Shakiness Dizziness Weakness Trouble breathing Breathing fast (hyperventilating) Chest pressure Sweating Headache Nausea Diarrhea Tiredness Inability to sleep Sexual problems Home care Try to locate the sources of stress in your life. They may not be obvious. These may include: oDaily hassles of life (such as traffic jams, missed appointments, or car troubles) oMajor life changes, both good (new baby or job promotion) and bad (loss of job or loss of loved one) oOverload: feeling that you have too many responsibilities and can't take care of all of them at once oFeeling helpless or feeling that your problems are beyond what you re able to solve Notice how your body reacts to stress. Learn to listen to your body signals. This will help you take action before the stress becomes severe. When you can, do something about the source of your stress. (Avoid hassles, limit the amount of change that happens in your life at one time and take a break when you feel overloaded). Unfortunately, many stressful situations can't be avoided. It is necessary to learn how to better manage stress. There are many proven methods that will reduce your anxiety. These include simple things like exercise, good nutrition, and adequate rest. Also, there are certain techniques that are helpful: oRelaxation oBreathing exercises oVisualization oBiofeedback oMeditation For more information about this, consult your healthcare provider or go to a local bookstore and review the many books and tapes available on this subject. Follow-up care If you feel that your anxiety is not responding to self-help measures, contact your healthcare provider or make an appointment with a counselor. You may need short-term psychological counseling and temporary medicine to help you manage stress. Call 911 Call 911 if any of these happen: Trouble breathing Confusion Drowsiness or trouble wakening Fainting or loss of consciousness Rapid heart rate Seizure New chest pain that becomes more severe, lasts longer, or spreads into your shoulder, arm, neck, jaw, or back When to seek medical advice Call your healthcare provider right away if any of these happen: Your symptoms get worse Severe headache not relieved by rest and mild pain reliever [id number] [employer]. [address] [place] [address]. All rights reserved. This information is not intended as a substitute for professional medical care. Always follow your healthcare professional's instructions. 04/09/2021 14:01:05 Shortness of Breath (Dyspnea) Shortness of Breath (Dyspnea) Shortness of breath is the feeling that you can't catch your breath or get enough air. It is also known as dyspnea. Dyspnea can be caused by many different conditions. They include: Acute asthma attack Worsening of chronic lung diseases such as chronic bronchitis and emphysema Heart failure. This is when weak heart muscle allows extra fluid to collect in the lungs. Panic attacks or anxiety. Fear can cause rapid breathing (hyperventilation). Pneumonia, or an infection in the lung tissue Exposure to toxic substances, fumes, smoke, or certain medicines Blood clot in the lung (pulmonary embolism). This is often from a piece of blood clot in a deep vein of the leg (deep vein thrombosis) that breaks off and travels to the lungs. Heart attack or heart-related chest pain (angina) Anemia Collapsed lung (pneumothorax) Dehydration Based on your visit today, the exact cause of your shortness of breath is not certain. Your tests don t show any of the serious causes of dyspnea. You may need other tests to find out if you have a serious problem. It s important to watch for any new symptoms or symptoms that get worse. Follow up with your healthcare provider as directed. Home care Follow these tips to take care of yourself at home: When your symptoms are better, go back to your usual activities. If you smoke, you should stop. Join a quit-smoking program or ask your healthcare provider for help. Eat a healthy diet and get plenty of sleep. Get regular exercise. Talk with your healthcare provider before starting to exercise, especially if you have other medical problems. Cut down on the amount of caffeine and stimulants you consume. Follow-up care Follow up with your healthcare provider, or as advised. If tests were done, you will be told if your treatment needs to be changed. You can call as directed for the results. If an X-ray was taken, a specialist will review it. You will be notified of any new findings that may affect your care. Call 911 Shortness of breath may be a sign of a serious medical problem. For example, it may be a problem with your heart or lungs. Call 911 if you have worsening shortness of breath or trouble breathing, especially with any of the symptoms below: Confusion or difficulty waking Fainting or loss of consciousness. Fast or irregular heartbeat Coughing up blood Pain in your chest, arm, shoulder, neck, or upper back Sweating When to seek medical advice Call your healthcare provider right away if any of these occur: Slight shortness of breath or wheezing Redness, pain or swelling in your leg, arm, or other body area Swelling in both legs or ankles Fast weight gain Dizziness or weakness Fever of 100.4 F (38 C) or higher, or as directed by your healthcare provider [phone] [employer]. [address] [facility], [place] [address]. All rights reserved. This information is not intended as a substitute for professional medical care. Always follow your healthcare professional's instructions. 04/09/2021 14:00:26 DIZZINESS, Unk Cause Dizziness [Uncertain Cause] Dizziness is a common symptom sometimes described as lightheadedness or feeling like you are going to faint. If it lasts for only a few seconds and is related to changes in position (such as getting up after lying or sitting for a long time), it is usually not a sign of anything serious. Dizziness that lasts for minutes to hours, or comes on for no apparent reason, may be a sign of a more serious problem (such as dehydration, a medicine reaction, disease of the heart or brain). Today's exam did not show an exact cause for your dizzy spell . Sometimes additional tests are required before a cause can be found. Therefore, it is important to follow up with your doctor if your symptoms continue. Home Care: 1) If a dizzy spell occurs and lasts more than a few seconds, lie down until it passes. If you are lying down, then you cannot hurt yourself by falling if you do faint. 2) Do not drive or operate dangerous equipment until the dizzy spells have stopped for at least 48 hours. 3) If dizzy spells occur with sudden standing, this may be a sign of mild dehydration. Drink extra fluids over the next few days. 4) If you recently started a new medicine or if you had the dose of a current medicine increased (especially blood pressure medicine), talk with the prescribing doctor about your symptoms. Dose adjustments may be needed. Follow Up with your doctor for further evaluation within the next seven days, if your symptoms continue. Get Prompt Medical Attention if any of the following occur: -- Worsening of your symptoms -- Fainting, headache or seizure -- Repeated vomiting -- Feeling like you or the room is spinning -- Chest, arm, neck, back or jaw pain -- Palpitations (the sense that your heart is fluttering or beating fast or hard) -- Shortness of breath -- Blood in vomit or stool (black or red color) -- Weakness of an arm or leg or one side of the face -- Difficulty with speech or vision [id number] [employer]. [address] [place] [address], [place] [address]. All rights reserved. This information is not intended as a substitute for professional medical care. Always follow your healthcare professional's instructions. Follow Up Care 04/09/2021 12:43:46 With:LEILA SAWYER Address: [address] [place] [address] [place] [phone] Business (1) When:2-4 days Comments:Return to ED if symptoms worsen [facility] Evaluation + Plan note Note Date & Type Note Facility Evaluation + Plan note No data available for this section [facility] Progress note Note Date & Type Note Facility Progress note No data available for this section [facility] Summary Purpose Family History No Family History Records FoundNo Family History Records Found Advance Directives No Advanced Directives Records FoundNo Advanced Directives Records Found Additional Source Comments (unrecognized sect ion and content) No Status Records FoundNo Status Records Found INFORMATION SOURCE (unrecogn ized section and content) DATE CREATED AUTHOR AUTHOR'S ORGANIZ ATION 06/11/2021 [facility] ([place]) Care Team (unrecognized sect ion and content) Personnel Name: LEILA SAWYER BEER MAKER-MOLD CLOSER HELPER Address: [address] [place] [id number] FOR RECORDS PERTAINING TO PATIENTS WHO ARE OR HAVE BEEN ENROLLED IN A CHEMICAL DEPENDENCY/SUBSTANCEABUSE PROGRAM, SOME INFORMATION MAY BE OMITTED. This clinical summary was aggregated from multiple sources. Caution should be exercised in using it in the provision of clinical care. This summary normalizes information from multiple sources, and as a consequence, information in this document may materially change the coding, format and clinical context of patient data. In addition, data may be omitted in some cases. CLINICAL DECISIONS SHOULD BE BASED ON THE PRIMARY CLINICAL RECORDS. [employer] [facility]. provides no warranty or guarantee of the accuracy or completeness of information in this document.
== END | disposition home or self-care (01) ==
LOC: BIMLAB 16:13
PROVIDERS: PCP Internal Medicine; Visit Provider Internal Medicine
DX: E78.5 Hyperlipidemia, unspecified (principal); E03.9 Hypothyroidism, unspecified
CPT/HCPCS: 36415; 80053; 80061; 84443

== ENCOUNTER → 2023-10-03 | Outpatient (CLI) | payer BC, SELFPAY ==
[2023-10-03 16:46] LABS: Absolute Lymphocyte Count 0.87 X10^3/uL (0.83-4.51); Absolute Neutrophil Count 3.3 X10^3/uL (2.0-7.7); Basophil# 0.02 X10^3/uL; Basophil% 0.4 % (0-1); Eosinophil# 0.05 X10^3/uL; Eosinophils% 1.1 % (0-5); Hematocrit 37.1 % (40-54); Hemoglobin 12.4 g/dL (13.0-16.5); Lymphocyte # 0.87 X10^3/ul (0.83-4.51); Lymphocyte % 19.2 % (19-41); Mean Corp Hgb Conc 33.4 g/dL (32-36); Mean Corpuscular Hgb 31.3 pg (27.0-32.0); Mean Corpuscular Volume 93.7 fL (80-94); Mean Platelet Vol. 11.3 fl (6.2-12.0); Monocyte% 6.6 % (0-10); NRBC Flagged by Analyzer 0 % (0-5); Neutrophil # 3.28 X10^3/uL (2.7-7.7); Neutrophil % 72.5 % (47-70); Platelet Count 206 K/mm3 (150-450); RBC Distribution Width CV 12.1 % (11.6-14.6); RBC Distribution Width SD 41.9 fl (35.1-43.9); Red Blood Count 3.96 M/mm3 (4.6-6.2); White Blood Count 4.5 K/mm3 (4.4-11.0)
[2023-10-03 17:03] LABS: ALB/GLOB Ratio 1.1 RATIO (0.9-2.4); AST(SGOT) 18 U/L (15-37); Alanine Aminotransfer ALT/SGPT 21 U/L (16-61); Alkaline Phosphatase 70 U/L (45-117); Anion Gap 5 (5-15); BUN 19 mg/dL (7-18); BUN/Creat Ratio 16.8 RATIO (10-20); Calcium,Total 8.8 mg/dL (8.5-10.1); Chloride 108 mmol/L (98-107); Creatinine, Serum 1.13 mg/dL (0.70-1.30); EST Glomerular Filtration Rate 75 mL/min (>60); Est Glom Filt Rate - Afr Amer 91 mL/min (>60); Globulin 3.6 g/dL (2.2-4.2); Glucose 97 mg/dL (74-106); Potassium 4.4 mmol/L (3.5-5.1); Protein, Total 7.6 g/dL (6.4-8.2); Sodium Level 140 mmol/L (136-145)
== END | disposition home or self-care (01) ==
LOC: BIMLAB 15:43
PROVIDERS: PCP Internal Medicine; Referring Provider Internal Medicine; Visit Provider Internal Medicine
DX: I10 Essential (primary) hypertension (principal)
CPT/HCPCS: 36415; 80053; 85025

== ENCOUNTER → 2024-01-08 | Outpatient (CLI) | payer BC, SELFPAY ==
[2024-01-08 17:30] LABS: Absolute Lymphocyte Count 1.69 X10^3/uL (0.83-4.51); Absolute Neutrophil Count 3.1 X10^3/uL (2.0-7.7); Basophil# 0.02 X10^3/uL; Basophil% 0.4 % (0-1); Eosinophil# 0.04 X10^3/uL; Eosinophils% 0.8 % (0-5); Hematocrit 35.3 % (40-54); Hemoglobin 11.9 g/dL (13.0-16.5); Lymphocyte # 1.69 X10^3/ul (0.83-4.51); Lymphocyte % 32.3 % (19-41); Mean Corp Hgb Conc 33.7 g/dL (32-36); Mean Corpuscular Hgb 31.5 pg (27.0-32.0); Mean Corpuscular Volume 93.4 fL (80-94); Mean Platelet Vol. 11.6 fl (6.2-12.0); Monocyte# 0.38 X10^3/uL; Monocyte% 7.3 % (0-10); NRBC Flagged by Analyzer 0 % (0-5); Platelet Count 208 K/mm3 (150-450); RBC Distribution Width CV 12.2 % (11.6-14.6); Red Blood Count 3.78 M/mm3 (4.6-6.2); White Blood Count 5.2 K/mm3 (4.4-11.0)
[2024-01-08 17:49] LABS: ALB/GLOB Ratio 1.1 RATIO (0.9-2.4); AST(SGOT) 17 U/L (15-37); Alanine Aminotransfer ALT/SGPT 20 U/L (16-61); Albumin, Serum 4.2 g/dL (3.2-5.0); Alkaline Phosphatase 71 U/L (45-117); Anion Gap 7 (5-15); BUN 19 mg/dL (7-18); BUN/Creat Ratio 16.7 RATIO (10-20); Calcium,Total 9.1 mg/dL (8.5-10.1); Chloride 102 mmol/L (98-107); Creatinine, Serum 1.14 mg/dL (0.70-1.30); EST Glomerular Filtration Rate 74 mL/min (>60); Est Glom Filt Rate - Afr Amer 90 mL/min (>60); Globulin 3.7 g/dL (2.2-4.2); Glucose 95 mg/dL (74-106); Potassium 4.5 mmol/L (3.5-5.1); Protein, Total 7.9 g/dL (6.4-8.2); Sodium Level 138 mmol/L (136-145)
[2024-01-09 13:25] LABS: Ferritin 194 ng/mL (26-388); Iron 98 ug/dL (65-175); Iron Binding Capacity,Total 411 ug/dL (250-450)
[2024-01-09 15:16] LABS: Vitamin B12 487 pg/mL (211-911)
== END | disposition home or self-care (01) ==
LOC: BIMLAB 15:41
PROVIDERS: PCP Internal Medicine; Referring Provider Internal Medicine; Visit Provider Internal Medicine
DX: D64.9 Anemia, unspecified (principal); E03.9 Hypothyroidism, unspecified
CPT/HCPCS: 36415; 80053; 82607; 82728; 82746; 83540; 83550; 84443; 85025

== ENCOUNTER 2024-02-17 15:29 | Emergency (ER) | payer BC, SELFPAY ==
[2024-02-17 15:30] VITALS: BP 109/68; PULSE 65; RESP 15; TEMP 36.7; O2SAT 100; BMI 33.2
[2024-02-17] MEDS: Ondansetron ODT 4 MG Tablet 8 MG PO (15:53)
--- NOTE | 2024-02-17 15:53 | ED.VIS.GI ---
HPI HPI - GI History of Present Illness Chief Complaint: Nausea/Vomiting/Diarrhea Informant: patient Nausea/Vomiting/Emesis GI Symptom: Positive for Nausea and Vomiting Onset: Days Severity: Mild Diarrhea/Melena/Hematochezia GI Symptom: Positive for Diarrhea; Negative for Melena or Hematochezia Onset: Days Stool Quality: Positive for Loose Severity: Mild Associated Symptoms Associated Symptoms: Negative for Dysuria, Frequency, Hematuria or Urgency Narrative Narrative: 43-year-old male history of hypertension and bipolar. States he has had nausea, vomiting and diarrhea with a fever as high as 103 the last 3 to 4 days. No vomiting today. Denies abdominal pain other than some mild cramping. No dysuria. He has had decreased p.o. intake recently. Denies any prior abdominal surgeries. Prior similar symptoms: Yes Recent Illness/Hospitalization: No PFSH PFSH Medical History Anemia Bipolar depression URI (upper respiratory infection) Chest congestion Obesity (BMI 30-39.9) Anxiety and depression Cervical radiculopathy Cervical strain Hypogonadism Vitamin deficiency Dental infection Bipolar affect, depressed Metabolic disorder Anxiety Allergic rhinitis Vitamin deficiency Fatigue JOSEPHINE (obstructive sleep apnea) Hypothyroidism Hyperlipidemia HTN (hypertension) History of cellulitis History of separation anxiety Depression Blood clot in vein Pulmonary embolism High blood pressure Frequent headaches Drug abuse History of back problems Home Medications ?Medication ?Instructions ?Recorded ?Last Taken ?Type hydroxyzine HCl 25 mg tablet 25 mg PO TID PRN anxiety #60 tabs 08/10/21 Unknown Rx scopolamine base 1 mg over 3 days 1 patch transdermal Q3D PRN motion 12/05/21 Unknown Rx transdermal patch sickness #24 ea sildenafil 25 mg tablet (Viagra) 25 mg PO DAILY PRN sexual activity 03/12/22 Unknown Rx #30 tabs fluticasone propionate 50 See Rx Instructions .Route 12/18/22 Unknown Rx mcg/actuation nasal .COMPLEX #48 grams spray,suspension albuterol sulfate 90 mcg/actuation 2 inh inhalation Q6H PRN shortness 03/27/23 Unknown Rx breath activated powder inhaler of breath #1 ea doxazosin 2 mg tablet 2 mg PO QHS #90 tabs 04/26/23 Unknown Rx quetiapine 50 mg tablet 50 mg PO BID 3 months #180 tabs 10/31/23 Unknown Rx rosuvastatin 10 mg tablet See Rx Instructions .Route 10/31/23 Unknown Rx .COMPLEX #90 tabs montelukast 10 mg tablet 10 mg PO QHS #90 tabs 12/09/23 Unknown Rx (Singulair) bupropion HCl 100 mg tablet,12 hr See Rx Instructions .Route 01/12/24 Unknown Rx sustained-release .COMPLEX #180 TABLETS hydrochlorothiazide 25 mg tablet 25 mg PO QAM #90 tabs 01/12/24 Unknown Rx levothyroxine 25 mcg tablet See Rx Instructions .Route 01/12/24 Unknown Rx .COMPLEX #90 tabs lisinopril 40 mg tablet See Rx Instructions .Route 01/12/24 Unknown Rx .COMPLEX #90 tabs propranolol 20 mg tablet See Rx Instructions .Route 01/12/24 Unknown Rx .COMPLEX #180 tabs quetiapine 25 mg tablet (Seroquel) 25 mg PO QAM PRN anxiety #90 tabs 01/12/24 Unknown Rx ondansetron 4 mg disintegrating 4 mg PO Q6H PRN nausea and 02/17/24 Unknown Rx tablet vomiting #7 tabs Allergy/AdvReac Type Severity Reaction Status Date / Time Penicillins Allergy Mild Rash Verified 02/17/24 15:30 Family History Father Alcoholism Grandfather Colon cancer Brother Anxiety and depression Surgical History No history of previous surgery Social History adopted: No household members: significant other number of children: 1 current occupational status: employed current occupation: [employer] pets and animals: Yes pets and animals: cat(s) and dog(s) sexually active: Yes Smoking Status: Never smoker Tobacco: How many years used: 1 Smokeless tobacco user: chewing tobacco alcohol intake: never substance use type: former substance user Date of last use: 01/20/2019 caffeine: Yes (2) Type: other what type of physical activity do you participate in: walking frequency: 5-6 times per week do you feel safe at home: Yes ROS ROS ED ROS Narrative Nausea, vomiting, diarrhea or fever. Constitutional Constitutional ED: Reports fever(s) ENT ENT ED: Denies ear pain, rhinorrhea or sore throat Cardiovascular Cardiovascular: Denies chest pain, palpitations or racing heartbeat Respiratory/Chest Respiratory/Chest: Denies cough or dyspnea Gastrointestinal Gastrointestinal: Reports diarrhea, nausea and vomiting; Denies abdominal pain, constipation or melena Genitourinary Genitourinary ED: Denies dysuria or hematuria Musculoskeletal Musculoskeletal: Denies arthralgias or back pain Integumentary Denies abscess or Abrasions Neurologic Neurologic: Denies headache(s) Psychiatric Psychiatric: Denies anxiety or depression Endocrine Endocrinology: Denies polydipsia, polyphagia or polyuria Hematologic/Lymphatic Hematologic/Lymphatic: Denies easy bleeding or easy bruising Allergic/Immunologic Allergic/Immunologic ED: Denies mouth swelling, tongue swelling or urticaria EXAM Physical Exam Narrative Exam Narrative: Well-appearing 43-year-old male. Vital signs stable afebrile. Pulse ox on percent room air no hypoxia. He is in no distress. H EENT exam mild dry mucous membranes. Pupils round react to light. No trauma. Neck nontender. No lymphadenopathy. Back nontender. Lungs clear to auscultation bilaterally. Heart regular rate and rhythm rate about 65 no murmur. Chest wall ribs nontender. Abdomen soft, nontender, nondistended normal bowel sounds no peritoneal signs. Absolutely nontender. No hernia or mass. No distention. Both the right upper and right lower quadrants are completely nontender. Moving all 4 extremities. Normal strength. Nontender no edema. He is awake alert answering questions following commands. Skin unremarkable. No rashes. Const Vital Signs: 02/17/24 15:30 Temperature 98.1 F Temperature Source Oral Pulse Rate 65 Respiratory Rate 15 Blood Pressure 109/68 Blood Pressure Mean 81 Pulse Ox 100 Oxygen Delivery Method Room Air Positive well nourished and well developed; Negative for cachectic, contractures or unkempt General Appearance ED: well developed and NAD; Negative for unkempt, cachectic, contractures or pallor Nutritional Appearance: Negative for cachectic HEENT Reports dry mucous membranes; Denies moist mucous membranes normocephalic and atraumatic; Negative for trauma or tenderness Mouth ED: Yes dry mucous membranes Mouth: dry mucous membranes Eyes PERRL and EOMs intact bilaterally General Eye ED: Negative for pale conjunctiva or scleral icterus Neck no lymphadenopathy, supple and no JVD General: Negative for tenderness Carotids: Negative for other Resp normal respiratory effort and clear to auscultation bilaterally Effort and Inspection: Negative for respiratory distress Auscultation: Negative for rales, rhonchi or wheezes Cardio regular rate, regular rhythm, S1 normal heart sound, S2 normal heart sound and no murmurs GI non-tender, non-distended and no masses Palpation: soft; Negative for tender, guarding, rigid, hernia, mass, pulsatile mass or rebound tenderness present Back/Spine no CVA tenderness General Back: Negative for CVA tenderness Cervical Spine: Negative for cervical spine tenderness Thoracic Spine / Upper Back: Negative for thoracic spinal tenderness Lumbar Spine / Lower Back: Negative for lumbar spinal tenderness Extremity full ROM General Extremety ED: Negative for edema, tenderness or other findings General Extremity: Negative for edema or other findings Neuro CN's II-XII intact bilaterally and moves all extremities Sensorium / Orientation: alert, oriented to person, oriented to place and oriented to time; Negative for orientation impaired, confused, lethargic or stuporous Motor Exam: strength 5/5 throughout; Negative for general weakness or strength abnormal Psych mental status grossly normal and thought process normal Appearance: Negative for unkempt Attitude: No agitated Mood & Affect: Negative for depressed, anxious or tearful Skin no wounds General Skin Exam: Negative for jaundice or pallor Lesions: no lesions Rashes: no rashes Trauma: Negative for abrasion Nails: Negative for discolored MDM MDM MDM Narrative Medical decision making narrative: 43-year-old male presents clinically and historically and by exam with viral gastroenteritis. Abdomen is benign completely nontender. He does not need any imaging. We discussed treatment options and he is okay with p.o. Zofran and p.o. fluid rehydration. I do not think he needs any labs at this time. Will be reassessed. Repeat exam patient doing well at 4:26 PM. Abdomen completely benign and nontender. He was given Zofran has been drinking Powerade. He feels fine. He can use Zofran for nausea Imodium for diarrhea and follow-up as needed. Return if worse. Discharge Plan Triage Chief Complaint: Nausea/Vomiting/Diarrhea ED Provider: Chaparro Zamora Dx/Rx/DC Orders Clinical Impression: Viral gastroenteritis, Acute dehydration Instructions: ED Gastroenteritis, Viral (Adult) Prescriptions: New ondansetron 4 mg tablet,disintegrating 4 mg PO Q6H PRN (Reason: nausea and vomiting) Qty: 7 0RF No Action scopolamine base 1 mg over 3 days patch 3 day 1 patch transdermal Q3D PRN (Reason: motion sickness) Qty: 24 1RF sildenafil [Viagra] 25 mg tablet 25 mg PO DAILY PRN (Reason: sexual activity) Qty: 30 1RF Rx Instructions: administer 30 minutes to 4 hours before activity fluticasone propionate 50 mcg/actuation spray,suspension See Rx Instructions .ROUTE .COMPLEX Qty: 48 1RF Dose Instruction: Use 2 spray(s) in each nostril once daily Rx Instructions: Use 2 spray(s) in each nostril once daily albuterol sulfate 90 mcg/actuation aerosol powdr breath activated 2 inh inhalation Q6H PRN (Reason: shortness of breath) Qty: 1 0RF hydroxyzine HCl 25 mg tablet 25 mg PO TID PRN (Reason: anxiety) Qty: 60 0RF doxazosin 2 mg tablet 2 mg PO QHS Qty: 90 1RF quetiapine 50 mg tablet 50 mg PO BID 90 Days Qty: 180 1RF rosuvastatin 10 mg tablet See Rx Instructions .ROUTE .COMPLEX Qty: 90 1RF Dose Instruction: Take 1 tablet by mouth once daily Rx Instructions: Take 1 tablet by mouth once daily montelukast [Singulair] 10 mg tablet 10 mg PO QHS Qty: 90 1RF quetiapine [Seroquel] 25 mg tablet 25 mg PO QAM PRN (Reason: anxiety) Qty: 90 1RF levothyroxine 25 mcg tablet See Rx Instructions .ROUTE .COMPLEX Qty: 90 1RF Dose Instruction: Take 1 tablet by mouth once daily Rx Instructions: Take 1 tablet by mouth once daily propranolol 20 mg tablet See Rx Instructions .ROUTE .COMPLEX Qty: 180 1RF Dose Instruction: Take 1 tablet by mouth twice daily Rx Instructions: Take 1 tablet by mouth twice daily lisinopril 40 mg tablet See Rx Instructions .ROUTE .COMPLEX Qty: 90 1RF Dose Instruction: Take 1 tablet by mouth once daily Rx Instructions: Take 1 tablet by mouth once daily bupropion HCl 100 mg tablet sustained-release 12 hr See Rx Instructions .ROUTE .COMPLEX Qty: 180 1RF Dose Instruction: Take 1 tablet by mouth twice daily Rx Instructions: Take 1 tablet by mouth twice daily hydrochlorothiazide 25 mg tablet 25 mg PO QAM Qty: 90 1RF Primary Care Provider: Satinder Nunez Referrals: Satinder Nunez MD [Primary Care Provider] - 3-5 Days if not improving Activity Restrictions/Additional Instructions: Plenty of fluids and rest. Increase your diet slowly as tolerated. Zofran as needed for nausea which you may swallow or if you are too sick to swallow or let it dissolve under your tongue. Return if feeling worse or unable to keep fluids down. Print Language: Armenian Disposition Disposition: Home, Self Care
== END 2024-02-17 16:37 | disposition home or self-care (01) ==
LOC: ED 15:55
PROVIDERS: Emergency Provider Emergency Medicine; PCP Internal Medicine; Visit Provider Emergency Medicine
DX: A08.4 Viral intestinal infection, unspecified (principal); E86.0 Dehydration; G47.33 Obstructive sleep apnea (adult) (pediatric)
CPT/HCPCS: 99282

== ENCOUNTER → 2024-07-14 | Outpatient (CLI) | payer BC, SELFPAY ==
[2024-07-14 16:43] LABS: Absolute Lymphocyte Count 1.25 X10^3/uL (0.83-4.51); Absolute Neutrophil Count 2.3 X10^3/uL (2.0-7.7); Basophil# 0.03 X10^3/uL; Basophil% 0.8 % (0-1); Hematocrit 33.8 % (40-54); Hemoglobin 11.6 g/dL (13.0-16.5); Lymphocyte # 1.25 X10^3/ul (0.83-4.51); Lymphocyte % 32.2 % (19-41); Mean Corp Hgb Conc 34.3 g/dL (32-36); Mean Corpuscular Hgb 31.9 pg (27.0-32.0); Mean Corpuscular Volume 92.9 fL (80-94); Mean Platelet Vol. 11.2 fl (6.2-12.0); Monocyte# 0.31 X10^3/uL; NRBC Flagged by Analyzer 0 % (0-5); Neutrophil # 2.28 X10^3/uL (2.7-7.7); Neutrophil % 58.7 % (47-70); Platelet Count 191 K/mm3 (150-450); RBC Distribution Width CV 12.2 % (11.6-14.6); RBC Distribution Width SD 42.4 fl (35.1-43.9); Red Blood Count 3.64 M/mm3 (4.6-6.2); White Blood Count 3.9 K/mm3 (4.4-11.0)
[2024-07-15 11:13] LABS: ALB/GLOB Ratio 1.9 RATIO (0.9-2.4); AST(SGOT) 26 U/L (<=37); Alanine Aminotransfer ALT/SGPT 19 U/L (<=46); Albumin, Serum 4.9 g/dL (3.5-5.0); Alkaline Phosphatase 72 U/L (40-129); Anion Gap 11 (5-15); BUN 25 mg/dL (4-19); BUN/Creat Ratio 22.1 RATIO (10-20); Calcium,Total 9.2 mg/dL (7.6-11.0); Carbon Dioxide 24.5 mmol/L (21.0-32.0); Chloride 102 mmol/L (98-108); Cholesterol 210 mg/dL (<=200); Creatinine, Serum 1.12 mg/dL (0.70-1.20); EST Glomerular Filtration Rate 83 (>60); Globulin 2.6 g/dL (2.2-4.2); Glucose 95 mg/dL (70-99); High Density Lipoprotein 87 mg/dL; Low Density Lipoprotein Calc. 114 mg/dL; Potassium 4.9 mmol/L (3.3-5.1); Protein, Total 7.4 g/dL (5.9-8.4); Sodium Level 138 mmol/L (133-145); Total Bilirubin 0.37 mg/dL (0.00-1.30); Triglycerides 48 mg/dL; Very Low Density Lipoprotein 10 mg/dL (5-40); cholesterol:hdl ratio screen 2.42
== END | disposition home or self-care (01) ==
LOC: BIMLAB 15:56
PROVIDERS: PCP Internal Medicine; Referring Provider Internal Medicine; Visit Provider Internal Medicine
DX: I10 Essential (primary) hypertension (principal); E03.9 Hypothyroidism, unspecified
CPT/HCPCS: 36415; 80053; 80061; 84443; 85025

== ENCOUNTER → 2024-07-30 | Outpatient (CLI) | payer BC, SELFPAY ==
--- OUTSIDE RECORDS SUMMARY | 2024-07-30 19:14 | XMS RPT_ITS | CCD ---
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 Name Role Phone MARTHAYVES ORTIZ Admitting Unavailable YVES THOMAS Attending Unavailable YVES THOMAS Primary Care Unavailable MESFIN RICKS A Consulting Unavailable PROVIDER, UNKNOWN Consulting Unavailable PROVIDER, UNKNOWN Consulting Unavailable PROVIDER, UNKNOWN Consulting Unavailable LEILA SAWYER CNP Admitting Unavailable LEILA SAWYER CNP Attending Unavailable LEILA SAWYER CNP Primary Care Unavailable MESFIN RICKS A Consulting Unavailable PROVIDER, UNKNOWN Consulting Unavailable PROVIDER, UNKNOWN Consulting Unavailable PROVIDER, UNKNOWN Consulting Unavailable RONNI SCHWARTZ MD Admitting Unavailable RONNI SCHWARTZ MD Attending Unavailable RONNI SCHWARTZ MD Primary Care Unavailable LEILA SAWYER CNP Referring Unavailable LEILA SAWYER CNP Consulting Unavailable PROVIDER, UNKNOWN Consulting Unavailable PROVIDER, UNKNOWN Consulting Unavailable LANGSTONZHENG C Admitting Unavailable ZHENG LANGSTON C Attending Unavailable LEILA SAWYER CNP Referring Unavailable LANGSTON ZHENG C Primary Care Unavailable LEILA SAWYER CNP Consulting Unavailable PROVIDER, UNKNOWN Consulting Unavailable PROVIDER, UNKNOWN Consulting Unavailable 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 Satinder Nunez Primary Care Provider 1(33 0) Dr. Satinder Nunez Referring Provider [phone] Laina DINKEY LOCOMOTIVE ENGINEER, DINKEY LOCOMOTIVE ENGINEER-C Abdulkadir Attending Provider [phone] Dr. Satinder Nunez Primary Care Provider 1(33 0) Dr. Satinder Nunez Referring Provider [phone])2 Laina DINKEY LOCOMOTIVE ENGINEER, DINKEY LOCOMOTIVE ENGINEER-C Abdulkadir Attending Provider [phone] Dr. Satinder Nunez Primary Care Provider [phone] Dr. Satinder Nunez Referring Provider [phone])2 Laina DINKEY LOCOMOTIVE ENGINEER, DINKEY LOCOMOTIVE ENGINEER-C Abdulkadir Attending Provider 1(330) Dr. Satinder Nunez Primary Care Provider 1(33 0) Dr. Satinder Nunez Referring Provider 1(330)2 ERIN Marina NP Attending Provider 1(330) Dr. Satinder Nunez Primary Care Provider 1(33 0) Dr. Satinder Nunez Referring Provider 1(330)2 DANGELO John Attending Provider Dr. Satinder Nunez Attending Provider 1(330)2 Dr. Satinder Nunez Primary Care Provider 1(33 0) Dr. Satinder Nunez Attending Provider 1(330)2 Dr. Satinder Nunez Referring Provider 1(330)2 ERIN Santos Attending Provider 1(330) Dr. Satinder Nunez MD Primary Care Provider Dr. Satinder Nunez MD Attending Provider 1(33 0) Dr. Satinder Nunez MD Referring Provider 1(33 0) Oleghe, Efewongbe Referring Unavailable Oleghe, Efewongbe Attending Unavailable Oleghe, Efewongbe Primary Care Unavailable Chaparro Zamora Attending Unavailable Oleghe, Efewongbe Primary Care Unavailable Oleghe, Efewongbe Attending Unavailable Oleghe, Efewongbe Referring Unavailable Oleghe, Efewongbe Primary Care Unavailable Oleghe, Efewongbe Referring Unavailable Oleghe, Efewongbe Attending Unavailable Oleghe, Efewongbe Primary Care Unavailable Oleghe, Efewongbe Referring Unavailable Oleghe, Efewongbe Primary Care Unavailable Oleghe, Efewongbe Attending Unavailable Oleghe, Efewongbe Primary Care Unavailable Oleghe, Efewongbe Attending Unavailable Oleghe, Efewongbe Referring Unavailable Oleghe, Efewongbe Primary Care Unavailable Oleghe, Efewongbe Attending Unavailable Oleghe, Efewongbe Referring Unavailable Oleghe, Efewongbe Attending Unavailable Satinder Nunez Referring Unavailable Satinder Nunez Primary Care Unavailable Allergies Allergy Classification Reported Allergen(s) Allergy Type Date of Onset Reaction(s) Facility (1 source) Penicillins Drug allergy (disorder) [facility] Repository (2 sources) Penicillin; Translations: [penicillin] Drug Allergy [facility] (9 sources) Penicillins; Translations: [Penicillins] Allergy to substance 2021 [facility] Medications Current Medications Medication Drug Class(es) Dates Sig (Normalized) Sig (Original) 200 actuat albuterol 0.09 mg/actuat dry powder inhaler (3 sources) beta2-Adrenergic Agonist Start: 03-27-2023 Albuterol Sulfate 90 mcg/actuation aerosol powdr breath activated Active 2 NMA INHALATION EVERY 6 HOURS as needed for shortness of breath March 27, 2023 1:00am Start: 03-27-2023 Albuterol Sulf ate Active 2 INH INHALATION EVERY 6 HOURS March 27, 2023 12:00am BuPROPion (Eqv-Wellbutrin SR) 150 mg/12 hours oral tablet, extended release (1 source) Start: 05-22-2021 take 1 tablet by mouth once daily BuPROPion (Eqv-Wellbutrin SR) 150 mg/12 hours oral tablet, extended release Dose : 150 mg =, Oral, qDay, 0 Refill(s) Start Date: 05/22/21 Status: Ordered fluticasone propionate 0.05 mg/actuat metered dose nasal spray (20 sources) Corticosteroid Start: 06-14-2022 End: 12-18-2022 take 2 spray(s) nasal route once daily Fluticasone Propionate 50 mcg/actuation spray,suspension Active 0 .ROUTE .COMPLEX December 18, 2022 3:52pm Use 2 spray(s) in each nostril once daily Start: 02-01-2021 End: 06-14-2022 take 50 ug nasal route once daily Fluticasone Propionate (Flonase Allergy Relief) 50 mcg/actuation spray,suspension Discontinued 2 NMA INTRANASAL DAILY December 06, 2021 1:51pm June 14, 2022 8:42am administer into each nostril Start: 02-01-2021 End: 06-14-2022 take 1 spray(s) nasal route once daily Fluticasone Propionate (Flonase Allergy Relief) 50 mcg/actuation spray,suspension Discontinued 2 SPRAY INTRANASAL DAILY December 06, 2021 12:51pm June 14, 2022 7:42am administer into each nostril ondansetron 4 mg disintegrating oral tablet (2 sources) Serotonin-3 Receptor Antagonist Start: 02-17-2024 take 1 tablet by mouth every six hours as needed for nausea and vomiting Ondansetron 4 mg tablet,disintegrating Active 4 mg PO EVERY 6 HOURS as needed for nausea and vomiting February 17, 2024 1:00am 72 hr scopolamine 0.0139 mg/hr transdermal system (5 sources) Anticholinergic Start: 12-05-2021 Scopolamine Base 1 mg over 3 days patch 3 day Active 1 NMA TD Every 3 Days as needed for motion sickness December 05, 2021 12:00am Start: 12-05-2021 Scopolamine Ba se Active 1 PATCH TD Every 3 Days December 04, 2021 11:00pm sildenafil 25 mg oral tablet (10 sources) Phosphodiesterase 5 Inhibitor Start: 03-12-2022 End: 03-12-2022 Sildenafil (Viagra) 25 mg tablet Active 25 mg PO DAILY as needed for sexual activity March 12, 2022 5:13pm administer 30 minutes to 4 hours before activity Completed/Discontinued Medications Medication Drug Class(es) Dates Sig (Normalized) Sig (Original) amLODIPine 2.5 mg oral tablet (20 sources) Dihydropyridine Calcium Channel Irina Start: 11-02-2020 End: 04-27-2021 take 1 tablet by mouth once daily Amlodipine 2.5 mg tablet Discontinued 2.5 mg PO DAILY November 02, 2020 12:00am April 27, 2021 11:58am On Hold: Order Changed Start: 06-14-2020 End: 11-02-2020 take 1 tablet by mouth once daily Amlodipine 10 mg tablet Discontinued 10 mg PO DAILY August 09, 2020 9:55am November 02, 2020 9:13am apixaban 5 mg oral tablet (8 sources) Factor Xa Inhibitor Start: 03-19-2019 End: 11-02-2020 take 1 tablet by mouth twice daily Apixaban (Eliquis) 5 mg tablet Discontinued 5 mg PO TWICE A DAY March 19, 2019 1:00am November 02, 2020 9:13am On Hold: Order Changed benzonatate 100 mg oral capsule (3 sources) Non-narcotic Antitussive Start: 03-27-2023 End: 04-10-2023 take 1 capsule by mouth three times daily as needed for cough Benzonatate 100 mg capsule Discontinued 100 mg PO THREE TIMES A DAY as needed for cough 45 14 March 27, 2023 1:00am April 09, 2023 1:00am April 10, 2023 1:04am 12 hr buPROPion hydrochloride 100 mg extended release oral tablet (20 sources) Aminoketone Start: 03-12-2022 End: 01-12-2024 take 1 tablet by mouth twice daily Bupropion Hcl 100 mg tablet sustained-release 12 hr Discontinued 0 .ROUTE .COMPLEX 180 October 31, 2023 5:56pm January 12, 2024 11:04am Take 1 tablet by mouth twice daily Start: 05-16-2020 End: 03-12-2022 take 1 tablet by mouth twice daily Bupropion Hcl (Wellbutrin Sr) 150 mg tablet sustained-release 12 hr Discontinued 150 mg PO TWICE A DAY 180 November 15, 2021 9:53am March 12, 2022 5:14pm Start: 04-23-2019 End: 04-14-2020 Bupropion Hcl (Wellbutrin Sr ) 150 mg tablet sustained-release 12 hr Discontinued 150 mg PO TWICE A DAY 60 April 23, 2019 1:00am April 14, 2020 11:22am start daily for the first 3 days then increase to twice daily busPIRone hydrochloride 15 mg oral tablet (20 sources) Start: 04-23-2019 End: 04-10-2023 take 1 tablet by mouth twice daily Buspirone 15 mg tablet Discontinued 0 .ROUTE .COMPLEX 180 December 12, 2021 9:23am April 10, 2023 5:04pm Take 1 tablet by mouth twice daily Start: 03-19-2019 End: 04-23-2019 take 1 tablet by mouth twice daily Buspirone 7.5 mg tablet Discontinued 7.5 mg PO TWICE A DAY 180 March 19, 2019 10:40am April 23, 2019 11:29am clindamycin 150 mg oral capsule (16 sources) Lincosamide Antibacterial Start: 04-27-2021 End: 2021 take 1 capsule by mouth three times daily Clindamycin Hcl 150 mg capsule Discontinued 150 mg PO THREE TIMES A DAY April 27, 2021 12:14pm 2021 9:18am doxazosin 2 mg oral tablet (20 sources) alpha-Adrenergic Irina Start: 08-02-2022 End: 04-26-2023 take 1 tablet by mouth at bedtime Doxazosin 2 mg tablet Discontinued 2 mg PO AT BEDTIME January 20, 2023 9:35am April 10, 2023 5:04pm Start: 06-26-2022 End: 08-02-2022 take 2 tablets by mouth at bedtime Doxazosin 1 mg tablet Discontinued 2 mg PO AT BEDTIME June 26, 2022 3:36pm August 02, 2022 4:34pm Start: 06-26-2022 End: 08-02-2022 take 2 mg by mouth at bedtime Doxazosin Discontinued 2 MG PO AT BEDTIME June 26, 2022 2:36pm August 02, 2022 3:34pm Start: 06-12-2022 End: 06-26-2022 take 1 tablet by mouth at bedtime Doxazosin 1 mg tablet Discontinued 1 mg PO AT BEDTIME June 12, 2022 12:00am June 26, 2022 3:36pm hydroCHLOROthiazide 25 mg oral tablet (20 sources) Thiazide Diuretic Start: 05-16-2020 End: 01-12-2024 take 1 tablet by mouth once daily in the morning Hydrochlorothiazide 25 mg tablet Discontinued 25 mg PO EVERY MORNING October 31, 2023 5:56pm January 12, 2024 11:04am hydroCHLOROthiazide 25 mg / lisinopril 20 mg oral tablet (20 sources) Thiazide Diuretic, Angiotensin Converting Enzyme Inhibitor Start: 04-14-2020 End: 05-16-2020 Lisinopril-Hydrochloro thiazide 20-25 mg tablet Discontinued 1 {tbl} PO DAILY April 14, 2020 1:00am May 16, 2020 10:01am Start: 04-14-2020 End: 05-16-2020 take 1 tablet by mouth once daily Lisinopril-Hydrochlorothiazide Discontin ued 1 TABLET PO DAILY April 14, 2020 12:00am May 16, 2020 9:01am Start: 04-23-2019 End: 04-14-2020 Lisinopril-Hydrochlorothiazi de 20-12.5 mg tablet Discontinued 1 {tbl} PO DAILY April 23, 2019 1:00am April 14, 2020 11:21am Start: 04-23-2019 End: 04-14-2020 take 1 tablet by mouth once daily Lisinopril-Hydrochlorothiazide Discontin ued 1 TABLET PO DAILY April 23, 2019 12:00am April 14, 2020 10:21am Start: 03-19-2019 End: 04-23-2019 Lisinopril-Hydrochlorothiazi de 10-12.5 mg tablet Discontinued 1 {tbl} PO DAILY March 19, 2019 1:00am April 23, 2019 11:28am Start: 03-19-2019 End: 04-23-2019 take 1 tablet by mouth once daily Lisinopril-Hydrochlorothiazide Discontin ued 1 TABLET PO DAILY March 19, 2019 12:00am April 23, 2019 10:28am hydrOXYzine hydrochloride 25 mg oral tablet (20 sources) Antihistamine Start: 04-13-2021 End: 08-10-2021 take 1 tablet by mouth three times daily as needed for anxiety Hydroxyzine Hcl 25 mg tablet Discontinued 25 mg PO THREE TIMES A DAY as needed for anxiety 60 May 04, 2021 3:21pm 2021 9:15am levothyroxine sodium 0.025 mg oral tablet (20 sources) l-Thyroxine Start: 05-30-2020 End: 01-12-2024 take 1 tablet by mouth once daily Levothyroxine 25 mcg tablet Discontinued 0 .ROUTE .COMPLEX October 31, 2023 5:57pm January 12, 2024 11:04am Take 1 tablet by mouth once daily lisinopril 40 mg oral tablet (20 sources) Angiotensin Converting Enzyme Inhibitor Start: 12-02-2022 End: 12-18-2022 take 1 tablet by mouth once daily Lisinopril Discontinued 0 .ROUTE .COMPLEX December 02, 2022 7:37am December 18, 2022 2:53pm Take 1 tablet by mouth once daily Start: 12-02-2022 End: 12-18-2022 take 1 tablet by mouth once daily Lisinopril Discontinued 0 .ROUTE .COMPLEX December 02, 2022 8:37am December 18, 2022 3:53pm Take 1 tablet by mouth once daily Start: 08-20-2022 End: 12-02-2022 take 1 tablet by mouth once daily Lisinopril Discontinued 0 .ROUTE .COMPLEX August 20, 2022 10:48am December 02, 2022 7:37am Take 1 tablet by mouth once daily Start: 08-20-2022 End: 12-02-2022 take 1 tablet by mouth once daily Lisinopril Discontinued 0 .ROUTE .COMPLEX August 20, 2022 11:48am December 02, 2022 8:37am Take 1 tablet by mouth once daily Start: 05-28-2022 End: 08-20-2022 take 1 tablet by mouth once daily Lisinopril Discontinued 0 .ROUTE .COMPLEX May 28, 2022 8:01am August 20, 2022 10:48am Take 1 tablet by mouth once daily Start: 05-28-2022 End: 08-20-2022 take 1 tablet by mouth once daily Lisinopril Discontinued 0 .ROUTE .COMPLEX May 28, 2022 9:01am August 20, 2022 11:48am Take 1 tablet by mouth once daily Start: 02-21-2022 End: 05-28-2022 take 1 tablet by mouth once daily Lisinopril Discontinued 0 .ROUTE .COMPLEX February 21, 2022 12:24pm May 28, 2022 8:02am Take 1 tablet by mouth once daily Start: 02-21-2022 End: 05-28-2022 take 1 tablet by mouth once daily Lisinopril Discontinued 0 .ROUTE .COMPLEX February 21, 2022 1:24pm May 28, 2022 9:02am Take 1 tablet by mouth once daily Start: 02-21-2022 take 1 tablet by padilla th once daily Lisinopril Active 0 .ROUTE .COMPLEX February 21, 2022 12:24pm Take 1 tablet by mouth once daily Start: 05-16-2020 End: 01-12-2024 take 1 tablet by mouth once daily Lisinopril 40 mg tablet Discontinued 0 .ROUTE .COMPLEX 90 October 31, 2023 5:57pm January 12, 2024 11:04am Take 1 tablet by mouth once daily LORazepam 0.5 mg oral tablet (10 sources) Benzodiazepine Start: 04-09-2021 End: 2021 take 1 tablet by mouth three times daily as needed for anxiety Lorazepam 0.5 mg tablet Discontinued 0.5 mg PO THREE TIMES A DAY as needed for anxiety April 13, 2021 1:00am 2021 9:11am montelukast 10 mg oral tablet (18 sources) Leukotriene Receptor Antagonist Start: 12-05-2021 End: 06-08-2024 take 1 tablet by mouth at bedtime Montelukast (Singulair) 10 mg tablet Discontinued 10 mg PO AT BEDTIME December 09, 2023 3:40pm June 08, 2024 3:10pm oseltamivir 75 mg oral capsule (3 sources) Neuraminidase Inhibitor Start: 03-27-2023 End: 04-01-2023 take 1 capsule by mouth every twelve hours Oseltamivir 75 mg capsule Discontinued 75 mg PO Q12H 10 5 March 27, 2023 1:00am March 31, 2023 1:00am April 01, 2023 1:05am predniSONE 10 mg oral tablet (4 sources) Start: 08-16-2022 End: 12-18-2022 take 4 tablets by mouth once daily, then take 3 tablets by mouth once daily, then take 2 tablets by mouth once daily, then take 1 tablet by mouth once daily Prednisone 10 mg tablet Discontinued 10 mg PO As Directed August 16, 2022 12:00am December 18, 2022 3:30pm 4 tablets daily x3 days, then 3 tablets daily x3 days, then 2 tablets daily x3 days, then 1 tablet daily x3 days propranolol hydrochloride 20 mg oral tablet (20 sources) beta-Adrenergic Irina Start: 04-13-2021 End: 01-12-2024 take 1 tablet by mouth twice daily Propranolol 20 mg tablet Discontinued 0 .ROUTE .COMPLEX 180 October 31, 2023 5:57pm January 12, 2024 11:04am Take 1 tablet by mouth twice daily QUEtiapine 50 mg oral tablet (20 sources) Atypical Antipsychotic Start: 08-24-2021 End: 01-12-2024 take 1 tablet by mouth once daily in the morning Quetiapine (Seroquel) 25 mg tablet Discontinued 25 mg PO EVERY MORNING April 26, 2023 1:38pm July 03, 2023 3:36pm Start: 2021 End: 06-14-2024 take 1 tablet by mouth twice daily Quetiapine 50 mg tablet Discontinued 50 mg PO TWICE A DAY 180 October 31, 2023 5:57pm June 14, 2024 9:27am Start: 05-25-2021 End: 2021 take 1 tablet by mouth twice daily Quetiapine (Seroquel) 25 mg tablet Discontinued 25 mg PO TWICE A DAY 60 May 25, 2021 12:00am 2021 9:15am rosuvastatin calcium 10 mg oral tablet (20 sources) HMG-CoA Reductase Inhibitor Start: 04-18-2020 End: 05-12-2024 take 1 tablet by mouth once daily Rosuvastatin 10 mg tablet Discontinued 0 .ROUTE .COMPLEX April 22, 2024 11:44pm May 12, 2024 5:04pm Take 1 tablet by mouth once daily Start: 03-19-2019 End: 04-18-2020 take 1 tablet by mouth once daily Rosuvastatin 5 mg tablet Discontinued 5 mg PO DAILY April 14, 2020 11:21am April 18, 2020 9:39am sertraline 50 mg oral tablet (20 sources) Serotonin Reuptake Inhibitor Start: 04-23-2019 End: 05-16-2020 take 1 tablet by mouth once daily Sertraline 50 mg tablet Discontinued 50 mg PO DAILY April 14, 2020 11:21am May 16, 2020 10:06am Start: 03-19-2019 End: 04-23-2019 take 1 tablet by mouth once daily Sertraline 100 mg tablet Discontinued 100 mg PO DAILY March 19, 2019 10:39am April 23, 2019 11:16am Start: 03-19-2019 End: 03-19-2019 take 1 tablet by mouth once daily Sertraline 50 mg tablet Discontinued 50 mg PO DAILY March 19, 2019 1:00am March 19, 2019 10:50am Problems Active Problems Problem Classification Problem Date Documented Da te Episodic/Chronic Anxiety disorders (20 sources) Anxiety disorder; Translations: [Anxiety disorder, unspecified] Onset: 04-09-2021 Chronic Conditions associated with dizziness or vertigo (1 source) Dizziness and giddiness; Translations: [Dizziness and giddiness] Onset: 04-09-2021 Episodic Deficiency and other anemia (2 sources) Anemia; Translations: [Anemia, unspecified] 01-09-2024 Episodic Disorders of lipid metabolism (14 sources) Hyperlipidemia; Translations: [Hyperlipidemia, unspecified] Onset: 01-08-2024 08-09-2020 Chronic Disorders of teeth and jaw (9 sources) Infection of tooth; Translations: [Periapical abscess without sinus] Episodic Essential hypertension (20 sources) Hypertensive disorder; Translations: [Essential (primary) hypertension] Onset: 07-20-2024 Chronic Fever of unknown origin (1 source) Fever, unspecified; Translations: [Fever, unspecified] Episodic Fluid and electrolyte disorders (2 sources) Dehydration; Translations: [Dehydration] 02-25-2024 Episodic Headache; including migraine (8 sources) Frequent headache; Translations: [Frequent headaches] 03-19-2019 Episodic Influenza (3 sources) Influenza due to Influenza A virus; Translations: [Influenza due to other identified influenza virus with other respiratory manifestations] 03-27-2023 Episodic Intestinal infection (2 sources) Viral gastroenteritis; Translations: [Viral intestinal infection, unspecified] 02-25-2024 Episodic Malaise and fatigue (8 sources) Fatigue; Translations: [Other fatigue] 11-02-2020 Episodic Miscellaneous mental health disorders (6 sources) Sleep walking disorder; 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]] Onset: 07-14-2024 Chronic Mood disorders (20 sources) Depressive disorder; Translations: [Depression] Chronic Mood disorders (1 source) Major depressive disorder, single episode, unspecified; Translations: [Major depressive disorder, single episode, unspecified] Onset: 10-08-2018 Nutritional deficiencies (18 sources) Vitamin deficiency; Translations: [Vitamin deficiency, unspecified] Episodic Other connective tissue disease (2 sources) H/O: back problem; Translations: [Personal history of other diseases of the musculoskeletal system and connective tissue] 03-19-2019 Episodic Comment on above: Sciatic Other endocrine disorders (2 sources) Hypogonadism 08-24-2021 Chronic Other injuries and conditions due to external causes (1 source) Motion sickness, initial encounter; Translations: [Motion sickness] 12-05-2021 Episodic Other lower respiratory disease (1 source) Dyspnea; Translations: [Dyspnea, unspecified] Onset: 04-09-2021 Episodic Other lower respiratory disease (3 sources) Pleuritic pain; Translations: [Pleurodynia] 03-27-2023 Episodic Other lower respiratory disease (4 sources) Cough; Translations: [Cough] 03-27-2023 Episodic Other lower respiratory disease (1 source) Pleurodynia; Translations: [Painful respiration] 03-27-2023 Episodic Other nutritional; endocrine; and metabolic disorders (8 sources) Metabolic disease; Translations: [Metabolic disorder, unspecified] 04-27-2021 Chronic Other nutritional; endocrine; and metabolic disorders (2 sources) Metabolic disorder, unspecified; Translations: [Unspecified disorder of metabolism] Chronic Other nutritional; endocrine; and metabolic disorders (5 sources) Body mass index 30+ - obesity; Translations: [Obesity, unspecified] 12-18-2022 Chronic Other nutritional; endocrine; and metabolic disorders (2 sources) Obesity, unspecified; Translations: [Obesity, unspecified] 12-18-2022 Chronic Other screening for suspected conditions (not mental disorders or infectious disease) (6 sources) Encounter for screening for lipoid disorders; Translations: [Other specified abnormal findings of blood chemistry] Onset: 02-24-2018 03-27-2023 Episodic Other skin disorders (8 sources) History of cellulitis; Translations: [Personal history of diseases of the skin and subcutaneous tissue] 03-19-2019 Episodic Other upper respiratory disease (8 sources) Allergic rhinitis; Translations: [Allergic rhinitis, unspecified] 02-01-2021 Chronic Other upper respiratory disease (1 source) Allergic rhinitis, unspecified; Translations: [Allergic rhinitis, cause unspecified] 12-05-2021 Chronic Other upper respiratory infections (9 sources) Acute upper respiratory infection, unspecified; Translations: [Acute upper respiratory infections of unspecified site] Episodic Phlebitis; thrombophlebitis and thromboembolism (8 sources) Venous thrombosis; Translations: [Acute embolism and thrombosis of unspecified vein] 03-19-2019 Episodic Comment on above: Both legs Pulmonary heart disease (9 sources) Other pulmonary embolism without acute cor pulmonale; Translations: [Pulmonary embolism] Onset: 02-24-2018 04-14-2020 Episodic Residual codes; unclassified (9 sources) Obstructive sleep apnea syndrome; Translations: [Obstructive sleep apnea (adult) (pediatric)] 04-27-2021 Chronic Residual codes; unclassified (9 sources) Obstructive sleep apnea (adult) (pediatric); Translations: [Obstructive sleep apnea (adult)(pediatric)] Onset: 01-08-2024 Chronic Screening and history of mental health and substance abuse codes (8 sources) H/O: anxiety state; Translations: [Personal history of other mental and behavioral disorders] 03-19-2019 Episodic Spondylosis; intervertebral disc disorders; other back problems (4 sources) Cervical radiculopathy; Translations: [Radiculopathy, cervical region] 08-16-2022 Episodic Sprains and strains (4 sources) Strain of neck muscle; Translations: [Strain of muscle, fascia and tendon at neck level, initial encounter] 08-16-2022 Episodic Substance-related disorders (8 sources) Drug abuse; Translations: [Other psychoactive substance abuse, uncomplicated] 03-19-2019 Chronic Comment on above: Former Thyroid disorders (18 sources) Hypothyroidism; Translations: [Hypothyroidism, unspecified] Onset: 07-14-2024 Chronic Unclassified (6 sources) H/O: back problem; Translations: [History of back problems] 03-19-2019 Unclassified (8 sources) Hypogonadism; Translations: [Hypogonadism] Unclassified (2 sources) F51.3 - 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] Past or Other Problems Problem Classification Problem Date Documented Da te Episodic/Chronic Deficiency and other anemia (1 source) Anemia, unspecified; Translations: [Anemia, unspecified] Onset: 02-04-2024 Episodic Nausea and vomiting (1 source) Nausea with vomiting, unspecified; Translations: [Nausea with vomiting, unspecified] Onset: 04-07-2024 Episodic Other lower respiratory disease (2 sources) Shortness of breath; Translations: [Shortness of breath] Onset: 02-24-2018 Episodic Other lower respiratory disease (1 source) Solitary pulmonary nodule; Translations: [Solitary pulmonary nodule] Onset: 02-24-2018 Episodic Syncope (1 source) Syncope and collapse; Translations: [Syncope and collapse] Onset: 02-24-2018 Episodic Results Test Name Value Interpretation Reference Range Facility Comprehensive Metabolic Prof ilon 07-15-2024 Albumin [Mass/Vol] 4.9 g/dL Normal 3.5-5.0 [facility] Comment on above: Performed By: #### L 500.4100, L100.0100, L500.4050, L501.9520 ####[place] [facility] [address] [place], [address] Albumin/Globulin [Mass ratio] 1.9 {ratio} Normal 0.9-2.4 [facility] Comment on above: Performed By: #### L 500.4100, L100.0100, L500.4050, L501.9520 ####[facility] [address] [place], [address] ALK PHOS 72 U/L Normal 40-129 [facility] Comment on above: Performed By: #### L 500.4100, L100.0100, L500.4050, [id number] ####[facility] [address] [place], [address] ALT [Catalytic activity/Vol] 19 U/L Normal <=46 [facility] Comment on above: Performed By: #### L 500.4100, L100.0100, L500.4050, [id number] ####[facility] [address] [place], [address] AST [Catalytic activity/Vol] 26 U/L Normal <=37 [facility] Comment on above: Performed By: #### L 500.4100, L100.0100, L500.4050, [id number] ####[facility] [address] [place], [address] Bilirubin [Mass/Vol] 0.37 mg/dL Normal 0.00-1.30 [facility] Comment on above: Performed By: #### L 500.4100, L100.0100, L500.4050, [id number] ####[facility] [address] [place], [address] BUN/CRE 22.1 RATIO High 10-20 [facility] Comment on above: Performed By: #### L 500.4100, L100.0100, L500.4050, [id number] ####[facility] [address] [place], [address] Calcium [Mass/Vol] 9.2 mg/dL Normal 7.6-11.0 [facility] Comment on above: Performed By: #### L 500.4100, L100.0100, L500.4050, [id number] ####[facility] [address] [place], [address] Chloride [Moles/Vol] 102 mmol/L Normal 98-108 [facility] Comment on above: Performed By: #### L 500.4100, L100.0100, L500.4050, [id number] ####[facility] [address] [place], [address] CO2 [Moles/Vol] 24.5 mmol/L Normal 21.0-32.0 [facility] Comment on above: Performed By: #### L 500.4100, L100.0100, L500.4050, [id number] ####[facility] [address] [place], [address] Creatinine [Mass/Vol] 1.12 mg/dL Normal 0.70-1.20 [facility] Comment on above: Performed By: #### L 500.4100, L100.0100, L500.4050, [id number] ####[facility] [address] [place], [address] GAP 11 Normal 5-15 [facility] Comment on above: Performed By: #### L 500.4100, L100.0100, L500.4050, [id number] ####[facility] [address] [place], [address] GFR/1.73 sq M.predicted among non-blacks MDRD (S/P/Bld) [Vol rate/Area] 83 mL/min/{1.73_m2} Normal >60 [facility] Comment on above: Result Comment: mL/m in/1.73m2 CKD-EPI Creatinine Equation (2020) Performed By: #### L 500.4100, L100.0100, L500.4050, L501.9520 ####[facility] [address] [place], [address] Globulin (S) [Mass/Vol] 2.6 g/dL Normal 2.2-4.2 [facility] Comment on above: Performed By: #### L 500.4100, L100.0100, L500.4050, [id number] ####[facility] [address] [place], [address] Glucose [Mass/Vol] 95 mg/dL Normal 70-99 [facility] Comment on above: Performed By: #### L 500.4100, L100.0100, L500.4050, [id number] ####[facility] [address] [place], [address] Potassium [Moles/Vol] 4.9 mmol/L Normal 3.3-5.1 [facility] Comment on above: Performed By: #### L 500.4100, L100.0100, L500.4050, [id number] ####[facility] [address] [place], [address] Sodium [Moles/Vol] 138 mmol/L Normal 133-145 [facility] Comment on above: Performed By: #### L 500.4100, L100.0100, L500.4050, [id number] ####[facility] [address] [place], [address] T PROT 7.4 g/dL Normal 5.9-8.4 [facility] Comment on above: Performed By: #### L 500.4100, L100.0100, L500.4050, [id number] ####[facility] [address] [place], [address] Urea nitrogen [Mass/Vol] 25 mg/dL High 4-19 [facility] Comment on above: Performed By: #### L 500.4100, L100.0100, L500.4050, [id number] ####[facility] [address] [place], [address] Lipid Profileon 07-15-2024 CHOL:HDL 2.42 Normal [facility] Comment on above: Performed By: #### L 500.4100, L100.0100, L500.4050, [id number] ####[facility] [address] [place], [address] Cholesterol [Mass/Vol] 210 mg/dL High <=200 [facility] Comment on above: Result Comment: Chol esterol level, Desirable <200 mg/dL Borderline high cholesterol 200-239 mg/dL High cholesterol >=240 mg/dL Recommendations of the NCEP Adult Treatment Panel for the following risk-cutoff thresholds for the [place] population. Performed By: #### L 500.4100, L100.0100, L500.4050, L501.9520 ####[facility] [address] [place], [address] Cholesterol in HDL [Mass/Vol] 87 mg/dL Normal [facility] Comment on above: Result Comment: Rosita onal Cholesterol Education Program (NCEP) guidelines: <40 mg/dL: Low HDL-cholesterol (major risk factor for CHD) >= 60 mg/dL: High HDL-cholesterol (negative risk factor for CHD) HDL-cholesterol is affected by a number of factors, e.g. smoking, exercise, hormones, sex and age. Performed By: #### L 500.4100, L100.0100, L500.4050, L501.9520 ####[facility] [address] [place], [address] Cholesterol in LDL [Mass/Vol] 114 mg/dL Normal [facility] Comment on above: Result Comment: Bord wggkvu=069-837 mg/dL Higher Cnul=357 mg/dL or greater Performed By: #### L 500.4100, L100.0100, L500.4050, L501.9520 ####[facility] [address] [place], [address] Cholesterol in VLDL [Mass/Vol] 10 mg/dL Normal 5-40 [facility] Comment on above: Performed By: #### L 500.4100, L100.0100, L500.4050, L501.9520 ####[facility] [address] [place], [address] Triglyceride [Mass/Vol] 48 mg/dL Normal [facility] Comment on above: Result Comment: The drugs N-Acetylcysteine and Metamizole may falsely depress this assay. Normal range: <150 mg/dL Borderline High: 150-199 mg/dL High: 200-499 mg/dL Very High: >500 mg/dL Performed By: #### L 500.4100, L100.0100, L500.4050, L501.9520 ####[facility] [address] [place], [address] Thyroid Stim Hormone (TSH)on 07-15-2024 TSH 1.530 uIU/mL Normal 0.300-4.200 [facility] Comment on above: Performed By: #### L 500.4100, L100.0100, L500.4050, L501.9520 ####[facility] [address] [place], [address] Absolute lymphocyte countOrd ered By: Satinder Nunez on 07-14-2024 Lymphocytes Auto (Unsp spec) [#/Vol] 1.25 10*3/uL 0.83-4.51 [facility] Absolute neutrophil countOrd ered By: pitoseldenmera Nunez on 07-14-2024 Neutrophils (Bld) [#/Vol] 2.3 10*3/uL 2.0-7.7 [facility] Anion gap in Serum or Plasma Ordered By: pitokathy Vasquezmary ellenlauri on 07-14-2024 Anion gap [Moles/Vol] 11 mmol/L 5- [facility] Automated lymphocyte count a s percentage of total leukocytesOrdered By: adrienne Nunez on 07-14-2024 Lymphocytes/100 WBC Auto (Unsp spec) 32.2 % - [facility] BUN/creatinine ratioOrdered By: [facility] Vasquezlauri on 07-14-2024 Urea nitrogen/Creatinine [Mass ratio] 22.1 mg/mg High 10- [facility] Basophil percentageOrdered B y: Satinder Nunez on 07-14-2024 Basophils/100 WBC (Bld) 0.8 % 0-1 [facility] Bilirubin, totalOrdered By: Satinder Nunez on 07-14-2024 Bilirubin [Mass/Vol] 0.37 mg/dL 0.00-1.30 [facility] CBC W/Diff, Automatedon 06-25 Absolute Lymph 1.25 X10 3/uL Normal 0.83-4.51 [facility] Comment on above: Performed By: #### L 500.4100, L100.0100, L500.4050, L501.9520 ####[facility] [address] [place], [address] Absolute Neut 2.3 X10 3/uL Normal 2.0-7.7 [facility] Comment on above: Performed By: #### L 500.4100, L100.0100, L500.4050, L501.9520 ####[facility] [address] [place], [address] Basophils/100 WBC (Bld) 0.8 % Normal 0-1 [facility] Comment on above: Performed By: #### L 500.4100, L100.0100, L500.4050, L501.9520 ####[facility] [address] [place], [address] Eosinophils/100 WBC (Bld) 0.0 % Normal 0-5 [facility] Comment on above: Performed By: #### L 500.4100, L100.0100, L500.4050, L501.9520 ####[facility] [address] [place], [address] Erythrocyte distribution width (RBC) [Ratio] 12.2 % Normal 11.6-14.6 [facility] Comment on above: Performed By: #### L 500.4100, L100.0100, L500.4050, L501.9520 ####[facility] [address] [place], [address] Hematocrit (Bld) [Volume fraction] 33.8 % Low 40-54 [facility] Comment on above: Performed By: #### L 500.4100, L100.0100, L500.4050, L501.9520 ####[facility] [address] [place], [address] Hemoglobin (Bld) [Mass/Vol] 11.6 g/dL Low 13.0-16.5 [facility] Comment on above: Performed By: #### L 500.4100, L100.0100, L500.4050, L501.9520 ####[facility] [address] [place], [address] IG% 0.300 Normal 0.0-0.9 [facility] Comment on above: Result Comment: IG% - Immature Granulocytes (promyelocytes, myelocytes and metamyelocytes) > 1% indicates that a LEFT SHIFT is Present. Performed By: #### L 500.4100, L100.0100, L500.4050, L501.9520 ####[facility] [address] [place], [address] Lymphocytes/100 WBC (Bld) 32.2 % Normal 19-41 [facility] Comment on above: Performed By: #### L 500.4100, L100.0100, L500.4050, L501.9520 ####[facility] [address] [place], [address] MCH (RBC) [Entitic mass] 31.9 pg Normal 27.0-32.0 [facility] Comment on above: Performed By: #### L 500.4100, L100.0100, L500.4050, L501.9520 ####[facility] [address] [place], [address] MCHC (RBC) [Mass/Vol] 34.3 g/dL Normal 32-36 [facility] Comment on above: Performed By: #### L 500.4100, L100.0100, L500.4050, L501.9520 ####[facility] [address] [place], [address] MCV (RBC) [Entitic vol] 92.9 fL Normal 80-94 [facility] Comment on above: Performed By: #### L 500.4100, L100.0100, L500.4050, L501.9520 ####[facility] [address] [place], [address] Monocytes/100 WBC (Bld) 8.0 % Normal 0-10 [facility] Comment on above: Performed By: #### L 500.4100, L100.0100, L500.4050, L501.9520 ####[facility] [address] [place], [address] Neutrophils/100 WBC (Bld) 58.7 % Normal 47-70 [facility] Comment on above: Performed By: #### L 500.4100, L100.0100, L500.4050, L501.9520 ####[facility] [address] [place], [address] Nucleated RBC (Bld) [#/Vol] 0 10*3/uL Normal 0-5 [facility] Comment on above: Performed By: #### L 500.4100, L100.0100, L500.4050, L501.9520 ####[facility] [address] [place], [address] Platelet mean volume (Bld) [Entitic vol] 11.2 fL Normal 6.2-12.0 [facility] Comment on above: Performed By: #### L 500.4100, L100.0100, L500.4050, L501.9520 ####[facility] [address] [place], [address] Platelets (Bld) [#/Vol] 191 10*3/uL Normal 150-450 [facility] Comment on above: Performed By: #### L 500.4100, L100.0100, L500.4050, L501.9520 ####[facility] [address] [place], [address] RBC (Bld) [#/Vol] 3.64 10*6/uL Low 4.6-6.2 [facility] Comment on above: Performed By: #### L 500.4100, L100.0100, L500.4050, L501.9520 ####[facility] [address] [place], [address] RDW SD 42.4 fl Normal 35.1-43.9 [facility] Comment on above: Performed By: #### L 500.4100, L100.0100, L500.4050, L501.9520 ####[facility] [address] [place], [address] WBC (Bld) [#/Vol] 3.9 10*3/uL Low 4.4-11.0 [facility] Comment on above: Performed By: #### L 500.4100, L100.0100, L500.4050, L501.9520 ####[facility] [address] [place], [address] Calculated very low density lipoprotein (VLDL) cholesterol measurementOrdered By: Satinder Nunez on 07-14-2024 Calculated very low density lipoprotein (VLDL) cholesterol measurement 10 mg/dL 5-40 [facility] Carbon dioxide, total [Moles /volume] in Central venous bloodOrdered By: Satinder Nunez on 07-14-2024 CO2 [Moles/Vol] 24.5 mmol/L 21.0-32.0 [facility] Chloride assayOrdered By: Sreedhar Nunez on 07-14-2024 Chloride [Moles/Vol] 102 mmol/L 98-108 [facility] Eosinophil percentageOrdered By: Satinder Nunez on 07-14-2024 Eosinophils/100 WBC (Bld) 0.0 % 0-5 [facility] Erythrocyte distribution wid th ratioOrdered By: pitoseldenmera Nunez on 07-14-2024 Erythrocyte distribution width (RBC) [Ratio] 12.2 % 11.6-14.6 [facility] Erythrocyte distribution wid th standard deviationOrdered By: Satinder Nunez on 07-14-2024 Erythrocyte distribution width (RBC) [Ratio] 42.4 fl 35.1-43.9 [facility] Glomerular filtration rate ( GFR) estimation/1.73 sq m using serum, plasma, or whole bOrdered By: Satinder Nunez on 07-14-2024 GFR/1.73 sq M.predicted among non-blacks MDRD (S/P/Bld) [Vol rate/Area] 83 mL/min/{1.73_m2} >60 [facility] Comment on above: mL/min/1.73m2 CKD-EP I Creatinine Equation (2020) Hematocrit Auto (Bld) [Volum e fraction]Ordered By: Satinder Nunez on 07-14-2024 Hematocrit (Bld) [Volume fraction] 33.8 % Low 40-54 [facility] Hemoglobin measurementOrdere d By: Satinder Nunez on 07-14-2024 Hemoglobin (Bld) [Mass/Vol] 11.6 g/dL Low 13.0-16.5 [facility] Immature granulocytes/100 WB C Auto (Bld)Ordered By: Satinder Nunez on 07-14-2024 Immature granulocytes/100 WBC (Bld) 0.300 % 0.0-0.9 [facility] Comment on above: IG% - Immature Granu locytes (promyelocytes, myelocytes and metamyelocytes) > 1% indicates that a LEFT SHIFT is Present. Internal Medicine Office Vis iton 07-14-2024 Internal Medicine Office Visit [facility] [place] [address] [place] [address] OFFICE VISIT Date of Service: 07/14/24 MR#: [id number] Acct: [id number] Name: LEANNE COOPER Rep #: [id number] : 1980 Provider: Dr. Satinder aquino MD Age/Sex: 44/M Location: [facility] [place] Status: Signed Intake Vital Signs 04/07/24 15:19 07/14/24 15:15 Height 6 ft 6 ft Weight: 243 lb 6 oz 246 lb BMI 33.0 33.3 BP 146/94 H 136/80 H Blood Pressure Location Lt brachial Lt brachial Position Sitting Sitting Respiration 16 16 Pulse 71 71 Pulse Source Monitor Monitor Temp 96 F L 96.2 F L Temp Source Temporal Temporal Pulse Oximetry (%) 99 99 Oxygen Delivery Method room air room air Intake Visit Reasons: 3 M FU Chief Complaint: Follow-up Mortar Maker Required: No Accompanied by: Self Is patient in pain?: No Allergies Penicillins Allergy (Mild, Verified 07/14/24 15:18) Rash Medications ???Medication ???Instructions ???Recorded ???Confirmed ???Type hydroxyzine HCl 25 mg tablet 25 mg PO TID PRN anxiety #60 tabs 08/10/21 07/14/24 Rx scopolamine base 1 mg over 3 days 1 patch transdermal Q3D PRN motio n 12/05/21 07/14/24 Rx transdermal patch sickness #24 ea sildenafil 25 mg tablet (Viagra) 25 mg PO DAILY PRN sexual activity 03/12/22 07/14/24 Rx #30 tabs fluticasone propionate 50 See Rx Instructions .Route 3 07/14/24 Rx mcg/actuation nasal .COMPLEX #48 grams spray,suspension albuterol sulfate 90 mcg/actuation 2 inh inhalation Q6H PRN shortne ss 03/27/23 07/14/24 Rx breath activated powder inhaler of breath #1 ea doxazosin 2 mg tablet 2 mg PO QHS #90 tabs 04/26/2306/25 Rx Held on 10/03/23. Instructions: Home Medication placed on hold at Doctor's office bupropion HCl 100 mg tablet,12 hr See Rx Instructions .Route 07/14/24 Rx sustained-release .COMPLEX #180 TABLETS hydrochlorothiazide 25 mg tablet 25 mg PO QAM #90 tabs 01/12/24 Rx levothyroxine 25 mcg tablet See Rx Instructions .Route 4 07/14/24 Rx .COMPLEX #90 tabs lisinopril 40 mg tablet See Rx Instructions .Route 4 07/14/24 Rx .COMPLEX #90 tabs propranolol 20 mg tablet See Rx Instructions .Route 4 07/14/24 Rx .COMPLEX #180 tabs quetiapine 25 mg tablet (Seroquel) 25 mg PO QAM PRN anxiety #90 tab s 01/12/24 07/14/24 Rx ondansetron 4 mg disintegrating 4 mg PO Q6H PRN nausea and 4 07/14/24 Rx tablet vomiting #7 tabs rosuvastatin 10 mg tablet See Rx Instructions .Route 5 07/14/24 Rx .COMPLEX #90 tabs montelukast 10 mg tablet 10 mg PO QHS #90 tabs 06/08/24 Rx (Singulair) quetiapine 50 mg tablet 50 mg PO BID 3 months #180 tabs 07/14/24 Rx Have you fallen in the past year?: No [facility] Medical History (Updated 07/14/24 @ 16:[address] Satinder Nunez MD) Somnambulism Anemia Bipolar depression URI (upper respiratory infection) Chest congestion Obesity (BMI 30-39.9) Anxiety and depression Cervical radiculopathy Cervical strain Hypogonadism Vitamin deficiency Dental infection Bipolar affect, depressed Metabolic disorder Anxiety Allergic rhinitis Vitamin deficiency Fatigue JOSEPHINE (obstructive sleep apnea) Hypothyroidism Hyperlipidemia HTN (hypertension) History of cellulitis History of separation anxiety Depression Blood clot in vein Pulmonary embolism High blood pressure Frequent headaches Drug abuse History of back problems Surgical History No history of previous surgery Family History Father Alcoholism Grandfather Colon cancer Brother Anxiety and depression Social History adopted: No household members: significant other number of children: 1 current occupational status: employed current occupation: [employer] pets and animals: Yes pets and animals: cat(s) and dog(s) sexually active: Yes Smoking Status: Never smoker Tobacco: How many years used: 1 Smokeless tobacco user: chewing tobacco alcohol intake: never substance use type: former substance user Date of last use: 01/20/2019 caffeine: Yes (2) Type: other what type of physical activity do you participate in: walking frequency: 5-6 times per week do you feel safe at home: Yes HPI HPI Chief Complaint: Follow-up Details: LEANNE COOPER, is a 44 M who presents to the office today for follow-up of his chronic medical conditions. Also has some concerns. He states that over the last couple of months, he has had episodes of sleepwalking. He also has tried to use his BiPAP but keeps taking it off in the middle of the night without being aware of these events. He states (more content not included)... Normal [facility] LDL calc ser/plasOrdered By: Satinder Nunez on 07-14-2024 Cholesterol in LDL [Mass/Vol] 114 mg/dL [facility] Comment on above: Xtfabulexi=465-221 m g/dL & Higher Ftac=629 mg/dL or greater Laboratory - Chemistry and C hemistry - challengeOrdered By: Satinder Nunez on 07-14-2024 AST [Catalytic activity/Vol] 26 U/L <38 [facility] MCV (mean corpuscular volume ) determinationOrdered By: Satinder Nunez on 07-14-2024 MCV (RBC) [Entitic vol] 92.9 fL 80-94 [facility] Mean corpuscular hemoglobin (MCH) determinationOrdered By: Satinder Nunez on 07-14-2024 MCH (RBC) [Entitic mass] 31.9 pg 27.0-32.0 [facility] Mean corpuscular hemoglobin concentration (MCHC) determinationOrdered By: Satinder Nunez on 07-14-2024 MCHC (RBC) [Mass/Vol] 34.3 g/dL 32-36 [facility] Mean platelet volume determi nationOrdered By: Satinder Nunez on 07-14-2024 Platelet mean volume (Bld) [Entitic vol] 11.2 fL 6.2-12.0 [facility] Monocyte percentageOrdered B y: Satinder Nunez on 07-14-2024 Monocytes/100 WBC (Bld) 8.0 % 0-10 [facility] Neutrophil percentageOrdered By: Satinder Nunez on 07-14-2024 Neutrophils/100 WBC (Bld) 58.7 % 47-70 [facility] Nucleated red blood cell per centageOrdered By: Satinder Nunez on 07-14-2024 Nucleated RBC/100 WBC (Bld) [Ratio] 0 % 0-5 [facility] Platelet countOrdered By: Sreedhar Nunez on 07-14-2024 Platelets (Bld) [#/Vol] 191 10*3/uL 150-450 [facility] Potassium measurement (mass/ volume)Ordered By: Satinder Nunez on 07-14-2024 Potassium (Unsp spec) [Mass/Vol] 4.9 mmol/L 3.3-5.1 [facility] RBC Auto (Bld) [#/Vol]Ordere d By: Satinder Nunez on 07-14-2024 RBC (Bld) [#/Vol] 3.64 10*6/uL Low 4.6-6.2 [facility] Screening total cholesterol/ high density lipoprotein (HDL) cholesterol ratioOrdered By: Satinder Nunez on 07-14-2024 Cholesterol.total/Choles terol in HDL [Mass ratio] 2.42 {ratio} [facility] Serum creatinine measurement (mass/volume)Ordered By: Satinder Nunez on 07-14-2024 Creatinine [Mass/Vol] 1.12 mg/dL 0.70-1.20 [facility] Serum globulin measurementOr dered By: Satinder Nunez on 07-14-2024 Globulin (S) [Mass/Vol] 2.6 g/dL 2.2-4.2 [facility] Serum glucose measurement (m ass/volume)Ordered By: Satinder Nunez on 07-14-2024 Glucose [Mass/Vol] 95 mg/dL 70-99 [facility] Serum or plasma alanine baxter otransferase (ALT) measurementOrdered By: Satinder Nunez on 07-14-2024 ALT [Catalytic activity/Vol] 19 U/L <47 [facility] Serum or plasma albumin andria urement (mass/volume)Ordered By: Satinder Nunez on 07-14-2024 Albumin [Mass/Vol] 4.9 g/dL 3.5-5.0 [facility] Serum or plasma albumin/glob ulin mass ratioOrdered By: Satinder Nunez on 07-14-2024 Albumin/Globulin [Mass ratio] 1.9 {ratio} 0.9-2.4 [facility] Serum or plasma alkaline ciro sphatase measurementOrdered By: Satinder Nunez on 07-14-2024 ALP [Catalytic activity/Vol] 72 U/L 40-129 [facility] Serum or plasma calcium andria urement (mass/volume)Ordered By: Satinder Nunez on 07-14-2024 Calcium [Mass/Vol] 9.2 mg/dL 7.6-11.0 [facility] Serum or plasma cholesterol in HDL measurement (mass/volume)Ordered By: Satinder Nunez on 07-14-2024 Cholesterol in HDL [Mass/Vol] 87 mg/dL >40 [facility] Comment on above: National Cholesterol Education Program (NCEP) guidelines:<40 mg/dL: Low HDL-cholesterol (major risk factor for CHD)>= 60 mg/dL: High HDL-cholesterol (negative risk factor for CHD)HDL-cholesterol is affected by a number of factors, e.g. smoking, exercise, hormones, sex and age. Serum or plasma cholesterol measurement (mass/volume)Ordered By: Satinder Nunez on 07-14-2024 Cholesterol [Mass/Vol] 210 mg/dL High <201 [facility] Comment on above: Cholesterol level, D esirable <200 mg/dLBorderline high cholesterol 200-239 mg/dLHigh cholesterol >=240 mg/dLRecommendations of the NCEP Adult Treatment Panel for the following risk-cutoff thresholds for the [place] population. Serum or plasma urea nitroge n measurement (mass/volume)Ordered By: Satinder Nunez on 07-14-2024 Urea nitrogen [Mass/Vol] 25 mg/dL High 4-19 [facility] Sodium levelOrdered By: Jaun richankushlauri Nunez on 07-14-2024 Sodium [Moles/Vol] 138 mmol/L 133-145 [facility] TSH DL <= 0.005 mIU/L QnOrde red By: Satinder Nunez on 07-14-2024 TSH Qn 1.530 uIU/mL 0.300-4.200 [facility] Total proteinOrdered By: Pb Nunez on 07-14-2024 Protein [Mass/Vol] 7.4 g/dL 5.9-8.4 [facility] Triglycerides measurementOrd ered By: Satinder Nunez on 07-14-2024 Triglyceride [Mass/Vol] 48 mg/dL <199 [facility] [place] Comment on above: The drugs N-Acetylcy steine and Metamizole may falsely depress this assay. Normal range: <150 mg/dLBorderline High: 150-199 mg/dLHigh: 200-499 mg/dLVery High: >500 mg/dL White blood cell (WBC) count Ordered By: Satinder Nunez on 07-14-2024 WBC (Bld) [#/Vol] 3.9 10*3/uL Low 4.4-11.0 [facility] Internal Medicine Office Vis iton 04-07-2024 Internal Medicine Office Visit [facility] [address] [place], [place] [address] OFFICE VISIT Date of Service: 04/07/24 MR#: [id number] Acct: [id number] Name: LEANNE COOPER Rep #: [id number] : 1980 Provider: Dr. Satinder aquino MD Age/Sex: 43/M Location: [facility] Status: Signed Intake Vital Signs 01/08/24 15:22 02/17/24 15:30 04/07/24 15:19 Height 6 ft 2 in 6 ft 6 ft Weight: 243 lb 6 oz BMI 33.0 BP 146/94 H Blood Pressure Location Lt brachial Position Sitting Respiration 16 Pulse 71 Pulse Source Monitor Temp 96 F L Temp Source Temporal Pulse Oximetry (%) 99 Oxygen Delivery Method room air Intake Visit Reasons: 3 M FU Chief Complaint: Follow-up chronic conditions Mortar Maker Required: No Accompanied by: Self Is patient in pain?: No Allergies Penicillins Allergy (Mild, Verified 04/07/24 15:15) Rash Medications ???Medication ???Instructions ???Recorded ???Confirmed ???Type hydroxyzine HCl 25 mg tablet 25 mg PO TID PRN anxiety #60 tabs 08/10/21 04/07/24 Rx scopolamine base 1 mg over 3 days 1 patch transdermal Q3D PRN motio n 12/05/21 04/07/24 Rx transdermal patch sickness #24 ea sildenafil 25 mg tablet (Viagra) 25 mg PO DAILY PRN sexual activity 03/12/22 04/07/24 Rx #30 tabs fluticasone propionate 50 See Rx Instructions .Route 3 04/07/24 Rx mcg/actuation nasal .COMPLEX #48 grams spray,suspension albuterol sulfate 90 mcg/actuation 2 inh inhalation Q6H PRN shortne ss 03/27/23 04/07/24 Rx breath activated powder inhaler of breath #1 ea doxazosin 2 mg tablet 2 mg PO QHS #90 tabs 04/26/2303/27 Rx Held on 10/03/23. Instructions: Home Medication placed on hold at Doctor's office quetiapine 50 mg tablet 50 mg PO BID 3 months #180 tabs 04/07/24 Rx rosuvastatin 10 mg tablet See Rx Instructions .Route 4 04/07/24 Rx .COMPLEX #90 tabs montelukast 10 mg tablet 10 mg PO QHS #90 tabs 12/09/2302/17 Rx (Singulair) bupropion HCl 100 mg tablet,12 hr See Rx Instructions .Route 04/07/24 Rx sustained-release .COMPLEX #180 TABLETS hydrochlorothiazide 25 mg tablet 25 mg PO QAM #90 tabs 01/12/2402/17 Rx levothyroxine 25 mcg tablet See Rx Instructions .Route 4 04/07/24 Rx .COMPLEX #90 tabs lisinopril 40 mg tablet See Rx Instructions .Route 4 04/07/24 Rx .COMPLEX #90 tabs propranolol 20 mg tablet See Rx Instructions .Route 4 04/07/24 Rx .COMPLEX #180 tabs quetiapine 25 mg tablet (Seroquel) 25 mg PO QAM PRN anxiety #90 tab s 01/12/24 04/07/24 Rx ondansetron 4 mg disintegrating 4 mg PO Q6H PRN nausea and 4 04/07/24 Rx tablet vomiting #7 tabs Have you fallen in the past year?: No PFSH Medical History Anemia Bipolar depression URI (upper respiratory infection) Chest congestion Obesity (BMI 30-39.9) Anxiety and depression Cervical radiculopathy Cervical strain Hypogonadism Vitamin deficiency Dental infection Bipolar affect, depressed Metabolic disorder Anxiety Allergic rhinitis Vitamin deficiency Fatigue JOSEPHINE (obstructive sleep apnea) Hypothyroidism Hyperlipidemia HTN (hypertension) History of cellulitis History of separation anxiety Depression Blood clot in vein Pulmonary embolism High blood pressure Frequent headaches Drug abuse History of back problems Surgical History No history of previous surgery Family History Father Alcoholism Grandfather Colon cancer Brother Anxiety and depression Social History adopted: No household members: significant other number of children: 1 current occupational status: employed current occupation: [employer] pets and animals: Yes pets and animals: cat(s) and dog(s) sexually active: Yes Smoking Status: Never smoker Tobacco: How many years used: 1 Smokeless tobacco user: chewing tobacco alcohol intake: never substance use type: former substance user Date of last use: 01/20/2019 caffeine: Yes (2) Type: other what type of physical activity do you participate in: walking frequency: 5-6 times per week do you feel safe at home: Yes HPI HPI Chief Complaint: Follow-up chronic conditions Details: LEANNE COOPER, is a 43 M who presents to the office today for follow-up of his chronic medical conditions. No acute concerns at this time. History of hypertension, blood pressure today is elevated at 146/94. He states that he has had a particularly stressful day today and probably attributes it to this. He states that he has been checking his readings at home and his readings have been (more content not included)... Normal [facility] Emergency Department Summary on 02-17-2024 Emergency Department Summary [facility] Medical Records Department [address] [place] [address] Emergency Department Summary 02/17/24 MR#: [id number] Acct: [id number] Name: LEANNE COOPER Rep #: [id number] : 1980 43 From: Chaparro Zamora MD PCP: Dr. Satinder Nunez MD Status:REG ER Location: ED HPI HPI - GI History of Present Illness Chief Complaint: Nausea/Vomiting/Diarrh ea Informant: patient Nausea/Vomiting/Emesis GI Symptom: Positive for Nausea and Vomiting Onset: Days Severity: Mild Diarrhea/Melena/Hemato chezia GI Symptom: Positive for Diarrhea; Negative for Melena or Hematochezia Onset: Days Stool Quality: Positive for Loose Severity: Mild Associated Symptoms Associated Symptoms: Negative for Dysuria, Frequency, Hematuria or Urgency Narrative Narrative: 43-year-old male history of hypertension and bipolar. States he has had nausea, vomiting and diarrhea with a fever as high as 103 the last 3 to 4 days. No vomiting today. Denies abdominal pain other than some mild cramping. No dysuria. He has had decreased p.o. intake recently. Denies any prior abdominal surgeries. Prior similar symptoms: Yes Recent Illness/Hospitalizatio n: No PFSH [facility] Medical History Anemia Bipolar depression URI (upper respiratory infection) Chest congestion Obesity (BMI 30-39.9) Anxiety and depression Cervical radiculopathy Cervical strain Hypogonadism Vitamin deficiency Dental infection Bipolar affect, depressed Metabolic disorder Anxiety Allergic rhinitis Vitamin deficiency Fatigue JOSEPHINE (obstructive sleep apnea) Hypothyroidism Hyperlipidemia HTN (hypertension) History of cellulitis History of separation anxiety Depression Blood clot in vein Pulmonary embolism High blood pressure Frequent headaches Drug abuse History of back problems Home Medications ???Medication ???Instructions ???Recorded ???Last Taken ???Type hydroxyzine HCl 25 mg tablet 25 mg PO TID PRN anxiety #60 tabs 08/10/21 Unknown Rx scopolamine base 1 mg over 3 days 1 patch transdermal Q3D PRN motion 12/05/21 Unknown Rx transdermal patch sickness #24 ea sildenafil 25 mg tablet (Viagra) 25 mg PO DAILY PRN sexual activity 03/12/22 Unknown Rx #30 tabs fluticasone propionate 50 See Rx Instructions .Route 12/18/22 Unknown Rx mcg/actuation nasal .COMPLEX #48 grams spray,suspension albuterol sulfate 90 mcg/actuation 2 inh inhalation Q6H PRN shortness 03/27/23 Unknown Rx breath activated powder inhaler of breath #1 ea doxazosin 2 mg tablet 2 mg PO QHS #90 tabs 04/26/23 Unknown Rx quetiapine 50 mg tablet 50 mg PO BID 3 months #180 tabs 10/31/23 Unknown Rx rosuvastatin 10 mg tablet See Rx Instructions .Route 10/31/23 Unknown Rx .COMPLEX #90 tabs montelukast 10 mg tablet 10 mg PO QHS #90 tabs 12/09/23 Unknown Rx (Singulair) bupropion HCl 100 mg tablet,12 hr See Rx Instructions .Route 01/12/24 Unknown Rx sustained-release .COMPLEX #180 TABLETS hydrochlorothiazide 25 mg tablet 25 mg PO QAM #90 tabs 01/12/24 Unknown Rx levothyroxine 25 mcg tablet See Rx Instructions .Route 01/12/24 Unknown Rx .COMPLEX #90 tabs lisinopril 40 mg tablet See Rx Instructions .Route 01/12/24 Unknown Rx .COMPLEX #90 tabs propranolol 20 mg tablet See Rx Instructions .Route 01/12/24 Unknown Rx .COMPLEX #180 tabs quetiapine 25 mg tablet (Seroquel) 25 mg PO QAM PRN anxiety #90 tabs 01/12/24 Unknown Rx ondansetron 4 mg disintegrating 4 mg PO Q6H PRN nausea and 02/17/24 Unknown Rx tablet vomiting #7 tabs Allergy/AdvReac Type Severity Reaction Status Date / Time Penicillins Allergy Mild Rash Verified 02/17/24 15:30 Family History Father Alcoholism Grandfather Colon cancer Brother Anxiety and depression Surgical History No history of previous surgery Social History adopted: No household members: significant other number of children: 1 current occupational status: employed current occupation: [employer] pets and animals: Yes pets and animals: cat(s) and dog(s) sexually active: Yes Smoking Status: Never smoker Tobacco: How many years used: 1 Smokeless tobacco user: chewing tobacco alcohol intake: never substance use type: former substance user Date of last use: 01/20/2019 caffeine: Yes (2) Type: other what type of physical activity do you participate in: walking frequency: 5-6 times per week do you feel safe at home: Yes ROS ROS ED ROS Narrative Nausea, vomiting, diarrhea or fever. Constitutional Constitutional ED: Reports fever(s) ENT ENT ED: Denies ear pain, rhinorrhea or sore throat Cardiovascular Cardiovascular: Denies chest keegan (more content not included)... Normal [facility] Ferritinon 01-09-2024 Ferritin [Mass/Vol] 194 ng/mL Normal 26-388 [facility] Comment on above: Performed By: #### L 503.6054, L503.6198, L503.6550 ####[facility] [address] [place], [address] Folates, (Folic Acid)on 12-25 FOLATES 11.40 ng/mL Normal 3.1-55.4 [facility] Comment on above: Order Comment: N Performed By: #### L 506.0250, L503.0105 #### [facility] [address] [place], [address] Ironon 01-09-2024 Iron [Mass/Vol] 98 ug/dL Normal 65-175 [facility] Comment on above: Performed By: #### L 503.6075, L503.6150, L503.6550 #### [facility] [address] [place], [address] Iron Binding Capacity,Totalo n 01-09-2024 TIBC 411 ug/dL Normal 250-450 [facility] Comment on above: Performed By: #### L 503.6075, L503.6150, L503.6550 #### [facility] [address] [place], [address] Vitamin B12on 01-09-2024 Cobalamin (Vitamin B12) [Mass/Vol] 487 pg/mL Normal 211-911 [facility] Comment on above: Performed By: #### L 506.0250, L503.0105 #### [facility] [address] [place], [address] CBC W/Diff, Automatedon 12-25 Absolute Lymph 1.69 X10 3/uL Normal 0.83-4.51 [facility] Comment on above: Performed By: #### L 500.4050, L100.0100, L501.9520 #### [facility] [address] [place], [address] Absolute Neut 3.1 X10 3/uL Normal 2.0-7.7 [facility] Comment on above: Performed By: #### L 500.4050, L100.0100, L501.9520 #### [facility] [address] [place], [address] Basophils/100 WBC (Bld) 0.4 % Normal 0-1 [facility] [place] Comment on above: Performed By: #### L 500.4050, L100.0100, L501.9520 #### [facility] [address] [place], [address] Eosinophils/100 WBC (Bld) 0.8 % Normal 0-5 [facility] Comment on above: Performed By: #### L 500.4050, L100.0100, L501.9520 #### [facility] [address] [place], [address] Erythrocyte distribution width (RBC) [Ratio] 12.2 % Normal 11.6-14.6 [facility] Comment on above: Performed By: #### L 500.4050, L100.0100, L501.9520 #### [facility] [address] [place], [address] Hematocrit (Bld) [Volume fraction] 35.3 % Low 40-54 [facility] Comment on above: Performed By: #### L 500.4050, L100.0100, L501.9520 #### [facility] [address] [place], [address] Hemoglobin (Bld) [Mass/Vol] 11.9 g/dL Low 13.0-16.5 [facility] Comment on above: Performed By: #### L 500.4050, L100.0100, L501.9520 #### [facility] [address] [place], [address] IG% 0.200 Normal 0.0-0.9 [facility] Comment on above: Result Comment: IG% - Immature Granulocytes (promyelocytes, myelocytes and metamyelocytes) > 1% indicates that a LEFT SHIFT is Present. Performed By: #### L 500.4050, L100.0100, L501.9520 #### [facility] [address] [place], [address] Lymphocytes/100 WBC (Bld) 32.3 % Normal 19-41 [facility] Comment on above: Performed By: #### L 500.4050, L100.0100, L501.9520 #### [facility] [address] [place], [address] MCH (RBC) [Entitic mass] 31.5 pg Normal 27.0-32.0 [facility] Comment on above: Performed By: #### L 500.4050, L100.0100, L501.9520 #### [facility] [address] [place], [address] MCHC (RBC) [Mass/Vol] 33.7 g/dL Normal 32-36 [facility] Comment on above: Performed By: #### L 500.4050, L100.0100, L501.9520 #### [facility] [address] [place], [address] MCV (RBC) [Entitic vol] 93.4 fL Normal 80-94 [facility] Comment on above: Performed By: #### L 500.4050, L100.0100, L501.9520 #### [facility] [address] [place], [address] Monocytes/100 WBC (Bld) 7.3 % Normal 0-10 [facility] Comment on above: Performed By: #### L 500.4050, L100.0100, L501.9520 #### [facility] [address] [place], [address] Neutrophils/100 WBC (Bld) 59.0 % Normal 47-70 [facility] Comment on above: Performed By: #### L 500.4050, L100.0100, L501.9520 #### [facility] [address] [place], [address] Nucleated RBC (Bld) [#/Vol] 0 10*3/uL Normal 0-5 [facility] Comment on above: Performed By: #### L 500.4050, L100.0100, L501.9520 #### [facility] [address] [place], [address] Platelet mean volume (Bld) [Entitic vol] 11.6 fL Normal 6.2-12.0 [facility] Comment on above: Performed By: #### L 500.4050, L100.0100, L501.9520 #### [facility] [address] [place], [address] Platelets (Bld) [#/Vol] 208 10*3/uL Normal 150-450 [facility] Comment on above: Performed By: #### L 500.4050, L100.0100, L501.9520 #### [facility] [address] [place], [address] RBC (Bld) [#/Vol] 3.78 10*6/uL Low 4.6-6.2 [facility] Comment on above: Performed By: #### L 500.4050, L100.0100, L501.9520 #### [facility] [address] [place], [address] RDW SD 42.0 fl Normal 35.1-43.9 [facility] Comment on above: Performed By: #### L 500.4050, L100.0100, L501.9520 #### [facility] [address] [place], [address] WBC (Bld) [#/Vol] 5.2 10*3/uL Normal 4.4-11.0 [facility] Comment on above: Performed By: #### L 500.4050, L100.0100, L501.9520 #### [facility] [address] [place], [address] Comprehensive Metabolic [facility] ilon 01-08-2024 Albumin [Mass/Vol] 4.2 g/dL Normal 3.2-5.0 [facility] Comment on above: Performed By: #### L 500.4050, L100.0100, L501.9520 #### [facility] [address] [place], [address] Albumin/Globulin [Mass ratio] 1.1 {ratio} Normal 0.9-2.4 [facility] Comment on above: Performed By: #### L 500.4050, L100.0100, L501.9520 #### [facility] [address] [place], [address] ALK P 71 U/L Normal 45-117 [facility] Comment on above: Performed By: #### L 500.4050, L100.0100, L501.9520 #### [facility] [address] [place], [address] ALT [Catalytic activity/Vol] 20 U/L Normal 16-61 [facility] Comment on above: Performed By: #### L 500.4050, L100.0100, L501.9520 #### [facility] [address] [place], [address] AST [Catalytic activity/Vol] 17 U/L Normal 15-37 [facility] Comment on above: Performed By: #### L 500.4050, L100.0100, L501.9520 #### [facility] [address] [place], [address] Bilirubin [Mass/Vol] 0.60 mg/dL Normal 0.20-1.00 [facility] Comment on above: Result Comment: For patients on eltrombopag therapy, use of Dimension Thousandsticks TBIL is not recommended. Performed By: #### L 500.4050, L100.0100, L501.9520 #### [facility] [address] [place], [address] BUN/CRE 16.7 RATIO Normal 10-20 [facility] Comment on above: Performed By: #### L 500.4050, L100.0100, L501.9520 #### [facility] [address] [place], [address] CA,Total 9.1 mg/dL Normal 8.5-10.1 [facility] Comment on above: Performed By: #### L 500.4050, L100.0100, L501.9520 #### [facility] [address] [place], [address] Chloride [Moles/Vol] 102 mmol/L Normal 98-107 [facility] Comment on above: Performed By: #### L 500.4050, L100.0100, L501.9520 #### [facility] [address] [place], [address] CO2 [Moles/Vol] 29.0 mmol/L Normal 21.0-32.0 [facility] Comment on above: Performed By: #### L 500.4050, L100.0100, L501.9520 #### [facility] [address] [place], [address] Creatinine [Mass/Vol] 1.14 mg/dL Normal 0.70-1.30 [facility] Comment on above: Result Comment: The validity of the calculated GFR GFRAA in patients over 70 years has not been determined. Clinical correlation is essential. Performed By: #### L 500.4050, L100.0100, L501.9520 #### [facility] [address] [place], [address] EST GFR - AA 90 mL/min Normal >60 [facility] Comment on above: Result Comment: Afri can Kosovan GFR Calc Performed By: #### L 500.4050, L100.0100, L501.9520 #### [facility] [address] [place], [address] GAP 7 Normal 5-15 [facility] Comment on above: Performed By: #### L 500.4050, L100.0100, L501.9520 #### [facility] [address] [place], [address] GFR/1.73 sq M.predicted among non-blacks MDRD (S/P/Bld) [Vol rate/Area] 74 mL/min/{1.73_m2} Normal >60 [facility] Comment on above: Result Comment: Non- GFR Calc Performed By: #### L 500.4050, L100.0100, L501.9520 #### [facility] [address] [place], [address] Globulin (S) [Mass/Vol] 3.7 g/dL Normal 2.2-4.2 [facility] Comment on above: Performed By: #### L 500.4050, L100.0100, L501.9520 #### [facility] [address] [place], [address] Glucose [Mass/Vol] 95 mg/dL Normal 74-106 [facility] Comment on above: Performed By: #### L 500.4050, L100.0100, L501.9520 #### [facility] [address] [place], [address] Potassium [Moles/Vol] 4.5 mmol/L Normal 3.5-5.1 [facility] Comment on above: Performed By: #### L 500.4050, L100.0100, L501.9520 #### [facility] [address] [place], [address] Sodium [Moles/Vol] 138 mmol/L Normal 136-145 [facility] Comment on above: Performed By: #### L 500.4050, L100.0100, L501.9520 #### [facility] [address] [place], [address] T PROT 7.9 g/dL Normal 6.4-8.2 [facility] Comment on above: Performed By: #### L 500.4050, L100.0100, L501.9520 #### [facility] [address] [place], [address] Urea nitrogen [Mass/Vol] 19 mg/dL High 7-18 [facility] Comment on above: Performed By: #### L 500.4050, L100.0100, L501.9520 #### [facility] [address] [place], [address] Internal Medicine Office Vis zechariah 01-08-2024 Internal Medicine Office Visit [facility] [address] [place] [address] [address] [place] [address] OFFICE VISIT Date of Service: 01/08/24 MR#: [id number] Acct: [id number] Name: LEANNE COOPER Rep #: [id number] : 1980 Provider: Dr. Satinder aquino MD Age/Sex: 43/M Location: [facility] Status: Signed Intake Vital Signs 10/03/23 15:13 01/08/24 15:22 Height 6 ft 2 in 6 ft 2 in Weight: 253 lb BMI 32.5 BP 124/82 H Blood Pressure Location Lt brachial Position Sitting Respiration 16 Pulse 65 Pulse Source Monitor Temp 99.1 F Temp Source Temporal Pulse Oximetry (%) 99 Oxygen Delivery Method room air Intake Visit Reasons: 3 M FU Chief Complaint: Follow-up chronic conditions Mortar Maker Required: No Accompanied by: Self Is patient in pain?: No Allergies Penicillins Allergy (Mild, Verified 11/14/24 15:15) Rash Medications ???Medication ???Instructions ???Recorded ???Confirmed ???Type hydroxyzine HCl 25 mg tablet 25 mg PO TID PRN anxiety #60 tabs 08/10/21 01/08/24 Rx scopolamine base 1 mg over 3 days 1 patch transdermal Q3D PRN motion 12/05/21 01/08/24 Rx transdermal patch sickness #24 ea sildenafil 25 mg tablet (Viagra) 25 mg PO DAILY PRN sexual activity 03/12/22 01/08/24 Rx #30 tabs fluticasone propionate 50 See Rx Instructions .Route 12/18/22 01/08/24 Rx mcg/actuation nasal .COMPLEX #48 grams spray,suspension albuterol sulfate 90 mcg/actuation 2 inh inhalation Q6H PRN shortness 03/27/23 01/08/24 Rx breath activated powder inhaler of breath #1 ea doxazosin 2 mg tablet 2 mg PO QHS #90 tabs 04/26/23 01/08/24 Rx quetiapine 25 mg tablet (Seroquel) 25 mg PO QAM PRN anxiety #90 tabs 07/03/23 01/08/24 Rx bupropion HCl 100 mg tablet,12 hr See Rx Instructions .Route 10/31/23 01/08/24 Rx sustained-release .COMPLEX #180 TABLETS hydrochlorothiazide 25 mg tablet 25 mg PO QAM #90 tabs 10/31/23 01/08/24 Rx levothyroxine 25 mcg tablet See Rx Instructions .Route 10/31/23 01/08/24 Rx .COMPLEX #90 tabs lisinopril 40 mg tablet See Rx Instructions .Route 10/31/23 01/08/24 Rx .COMPLEX #90 tabs propranolol 20 mg tablet See Rx Instructions .Route 10/31/23 01/08/24 Rx .COMPLEX #180 tabs quetiapine 50 mg tablet 50 mg PO BID 3 months #180 tabs 10/31/23 01/08/24 Rx rosuvastatin 10 mg tablet See Rx Instructions .Route 10/31/23 01/08/24 Rx .COMPLEX #90 tabs montelukast 10 mg tablet 10 mg PO QHS #90 tabs 12/09/23 01/08/24 Rx (Singulair) Nurse's Note: Declines flu shot. [facility] Medical History Bipolar depression URI (upper respiratory infection) Chest congestion Obesity (BMI 30-39.9) Anxiety and depression Cervical radiculopathy Cervical strain Hypogonadism Vitamin deficiency Dental infection Bipolar affect, depressed Metabolic disorder Anxiety Allergic rhinitis Vitamin deficiency Fatigue JOSEPHINE (obstructive sleep apnea) Hypothyroidism Hyperlipidemia HTN (hypertension) History of cellulitis History of separation anxiety Depression Blood clot in vein Pulmonary embolism High blood pressure Frequent headaches Drug abuse History of back problems Surgical History No history of previous surgery Family History Father Alcoholism Grandfather Colon cancer Brother Anxiety and depression Social History (Updated 01/08/24 @ 15:22 by April Fletcher MA) adopted: No household members: significant other number of children: 1 current occupational status: employed current occupation: [employer] pets and animals: Yes pets and animals: cat(s) and dog(s) sexually active: Yes Smoking Status: Former smoker quit date: 02/24/98 Tobacco: How many years used: 1 Smokeless tobacco user: chewing tobacco alcohol intake: never substance use type: former substance user Date of last use: 01/20/2019 caffeine: Yes (2) Type: other what type of physical activity do you participate in: walking frequency: 5-6 times per week do you feel safe at home: Yes HPI HPI Chief Complaint: Follow-up chronic conditions Details: LEANNE COOPER, is a 43 M who presents to the office today for follow-up. Also has some concerns. Lately, states that he has felt more tired. Feels sleepy when driving and when sitting for prolonged periods. History of sleep apnea, has not used his CPAP in almost 8 months. Recent significant weight loss. Stays active. No chills, fever, heat or cold intolerance. Also history of hypothyroidism on levothyroxine. Taking his medication as prescribed. Last TSH in March was 2.8. History of hypertension, blood pressure today at 124/82 mmHg. No chest pain, palpitation or shortness of breath. Other chronic medical conditions are stable. (more content not included)... Normal [facility] Thyroid Stim Hormone (TSH)on 01-08-2024 TSH 1.540 uIU/mL Normal 0.358-3.740 [facility] Comment on above: Performed By: #### L 500.4050, L100.0100, L501.9520 #### [facility] [address] [place], [address] CBC W/Diff, Automatedon 08-0 Absolute Lymph 0.87 X10 3/uL Normal 0.83-4.51 [facility] Comment on above: Performed By: #### L 500.4050, L100.0100 ####[facility] [address] [place], [address] Absolute Neut 3.3 X10 3/uL Normal 2.0-7.7 [facility] Comment on above: Performed By: #### L 500.4050, L100.0100 ####[facility] [address] [place], [address] Basophils/100 WBC (Bld) 0.4 % Normal 0-1 [facility] Comment on above: Performed By: #### L 500.4050, L100.0100 ####[facility] [address] [place], [address] Eosinophils/100 WBC (Bld) 1.1 % Normal 0-5 [facility] Comment on above: Performed By: #### L 500.4050, L100.0100 ####[facility] [address] [place], [address] Erythrocyte distribution width (RBC) [Ratio] 12.1 % Normal 11.6-14.6 [facility] Comment on above: Performed By: #### L 500.4050, L100.0100 ####[facility] [address] [place], [address] Hematocrit (Bld) [Volume fraction] 37.1 % Low 40-54 [facility] Comment on above: Performed By: #### L 500.4050, L100.0100 ####[facility] [address] [place], [address] Hemoglobin (Bld) [Mass/Vol] 12.4 g/dL Low 13.0-16.5 [facility] Comment on above: Performed By: #### L 500.4050, L100.0100 ####[facility] [address] [place], [address] IG% 0.200 Normal 0.0-0.9 [facility] Comment on above: Result Comment: IG% - Immature Granulocytes (promyelocytes, myelocytes and metamyelocytes) > 1% indicates that a LEFT SHIFT is Present. Performed By: #### L 500.4050, L100.0100 ####[facility] [address] [place], [address] Lymphocytes/100 WBC (Bld) 19.2 % Normal 19-41 [facility] Comment on above: Performed By: #### L 500.4050, L100.0100 ####[facility] [address] [place], [address] MCH (RBC) [Entitic mass] 31.3 pg Normal 27.0-32.0 [facility] Comment on above: Performed By: #### L 500.4050, L100.0100 ####[facility] [address] [place], [address] MCHC (RBC) [Mass/Vol] 33.4 g/dL Normal 32-36 [facility] Comment on above: Performed By: #### L 500.4050, L100.0100 ####[facility] [address] [place], [address] MCV (RBC) [Entitic vol] 93.7 fL Normal 80-94 [facility] Comment on above: Performed By: #### L 500.4050, L100.0100 ####[facility] [address] [place], [address] Monocytes/100 WBC (Bld) 6.6 % Normal 0-10 [facility] Comment on above: Performed By: #### L 500.4050, L100.0100 ####[facility] [address] [place], [address] Neutrophils/100 WBC (Bld) 72.5 % High 47-70 [facility] Comment on above: Performed By: #### L 500.4050, L100.0100 ####[facility] [address] [place], [address] Nucleated RBC (Bld) [#/Vol] 0 10*3/uL Normal 0-5 [facility] Comment on above: Performed By: #### L 500.4050, L100.0100 ####[facility] [address] [place], [address] Platelet mean volume (Bld) [Entitic vol] 11.3 fL Normal 6.2-12.0 [facility] Comment on above: Performed By: #### L 500.4050, L100.0100 ####[facility] [address] [place], [address] Platelets (Bld) [#/Vol] 206 10*3/uL Normal 150-450 [facility] Comment on above: Performed By: #### L 500.4050, L100.0100 ####[facility] [address] [place], [address] RBC (Bld) [#/Vol] 3.96 10*6/uL Low 4.6-6.2 [facility] Comment on above: Performed By: #### L 500.4050, L100.0100 ####[facility] [address] [place], [address] RDW SD 41.9 fl Normal 35.1-43.9 [facility] Comment on above: Performed By: #### L 500.4050, L100.0100 ####[facility] [address] [place], [address] WBC (Bld) [#/Vol] 4.5 10*3/uL Normal 4.4-11.0 [facility] Comment on above: Performed By: #### L 500.4050, L100.0100 ####[facility] [address] [place], [address] Comprehensive Metabolic Prof txon 10-03-2023 Albumin [Mass/Vol] 4.0 g/dL Normal 3.2-5.0 [facility] Comment on above: Performed By: #### L 500.4050, L100.0100 ####[facility] [address] [place], [address] Albumin/Globulin [Mass ratio] 1.1 {ratio} Normal 0.9-2.4 [facility] Comment on above: Performed By: #### L 500.4050, L100.0100 ####[facility] [address] [place], [address] ALK P 70 U/L Normal 45-117 [facility] Comment on above: Performed By: #### L 500.4050, L100.0100 ####[facility] [address] [place], [address] ALT [Catalytic activity/Vol] 21 U/L Normal 16-61 [facility] Comment on above: Performed By: #### L 500.4050, L100.0100 ####[facility] [address] [place], [address] AST [Catalytic activity/Vol] 18 U/L Normal 15-37 [facility] Comment on above: Performed By: #### L 500.4050, L100.0100 ####[facility] [address] [place], [address] Bilirubin [Mass/Vol] 0.40 mg/dL Normal 0.20-1.00 [facility] Comment on above: Result Comment: For patients on eltrombopag therapy, use of Dimension Thousandsticks TBIL is not recommended. Performed By: #### L 500.4050, L100.0100 ####[facility] [address] [place], [address] BUN/CRE 16.8 RATIO Normal 10-20 [facility] Comment on above: Performed By: #### L 500.4050, L100.0100 ####[facility] [address] [place], [address] CA,Total 8.8 mg/dL Normal 8.5-10.1 [facility] Comment on above: Performed By: #### L 500.4050, L100.0100 ####[facility] [address] [place], [address] Chloride [Moles/Vol] 108 mmol/L High 98-107 [facility] Comment on above: Performed By: #### L 500.4050, L100.0100 ####[facility] [address] [place], [address] CO2 [Moles/Vol] 27.0 mmol/L Normal 21.0-32.0 [facility] Comment on above: Performed By: #### L 500.4050, L100.0100 ####[facility] [address] [place], [address] Creatinine [Mass/Vol] 1.13 mg/dL Normal 0.70-1.30 [facility] Comment on above: Result Comment: The validity of the calculated GFR GFRAA in patients over 70 years has not been determined. Clinical correlation is essential. Performed By: #### L 500.4050, L100.0100 ####[facility] [address] [place], [address] EST GFR - AA 91 mL/min Normal >60 [facility] Comment on above: Result Comment: Afri can Kosovan GFR Calc Performed By: #### L 500.4050, L100.0100 ####[facility] [address] [place], [address] GAP 5 Normal 5-15 [facility] Comment on above: Performed By: #### L 500.4050, L100.0100 ####[facility] [address] [place], [address] GFR/1.73 sq M.predicted among non-blacks MDRD (S/P/Bld) [Vol rate/Area] 75 mL/min/{1.73_m2} Normal >60 [facility] Comment on above: Result Comment: Non- GFR Calc Performed By: #### L 500.4050, L100.0100 ####[facility] [address] [place], [address] Globulin (S) [Mass/Vol] 3.6 g/dL Normal 2.2-4.2 [facility] Comment on above: Performed By: #### L 500.4050, L100.0100 ####[facility] [address] [place], [address] Glucose [Mass/Vol] 97 mg/dL Normal 74-106 [facility] Comment on above: Performed By: #### L 500.4050, L100.0100 ####[facility] [address] [place], [address] Potassium [Moles/Vol] 4.4 mmol/L Normal 3.5-5.1 [facility] Comment on above: Performed By: #### L 500.4050, L100.0100 ####[facility] [address] [place], [address] Sodium [Moles/Vol] 140 mmol/L Normal 136-145 [facility] Comment on above: Performed By: #### L 500.4050, L100.0100 ####[facility] [address] [place], [address] T PROT 7.6 g/dL Normal 6.4-8.2 [facility] Comment on above: Performed By: #### L 500.4050, L100.0100 ####[facility] [address] [place], [address] Urea nitrogen [Mass/Vol] 19 mg/dL High 7-18 [facility] Comment on above: Performed By: #### L 500.4050, L100.0100 ####[facility] [address] [place], [address] Internal Medicine Office Vis iton 10-03-2023 Internal Medicine Office Visit [facility] [address] [place] [address] [place] [address] OFFICE VISIT Date of Service: 10/03/23 MR#: [id number] Acct: [id number] Name: LEANNE COOPER Rep #: [id number] : 1980 Provider: Dr. Satinder aquino MD Age/Sex: 43/M Location: [facility] [place] Status: Signed Intake Vital Signs 07/03/23 15:20 10/03/23 15:13 10/03/23 15:19 10/03/23 15:20 10/03/23 15:20 Height 6 ft 2 in 6 ft 2 in Weight: 277 lb 258 lb BMI 35.5 33.1 BP 132/94 H 128/80 H 120/80 124/80 H 122/82 H Blood Pressure Location Lt brachial Lt brachial Lt brachial Lt brachial Lt brachial Position Sitting Sitting Supine Sitting Standing Respiration 16 16 Pulse 76 72 60 66 82 Pulse Source Monitor Monitor Monitor Monitor Monitor Temp 98.2 F 97.2 F L Temp Source Temporal Temporal Pulse Oximetry (%) 99 99 Oxygen Delivery Method room air room air Intake Visit Reasons: 3 M FU Chief Complaint: Follow-up chronic conditions Mortar Maker Required: No Accompanied by: Self Is patient in pain?: No Allergies Penicillins Allergy (Mild, Verified 10/03/23 15:11) Rash Medications ???Medication ???Instructions ???Recorded ???Confirmed ???Type hydroxyzine HCl 25 mg tablet 25 mg PO TID PRN anxiety #60 tabs 08/10/21 10/03/23 Rx scopolamine base 1 mg over 3 days 1 patch transdermal Q3D PRN motion 12/05/21 10/03/23 Rx transdermal patch sickness #24 ea sildenafil 25 mg tablet (Viagra) 25 mg PO DAILY PRN sexual activity 03/12/22 10/03/23 Rx #30 tabs fluticasone propionate 50 See Rx Instructions .Route 12/18/22 10/03/23 Rx mcg/actuation nasal .COMPLEX #48 grams spray,suspension albuterol sulfate 90 mcg/actuation 2 inh inhalation Q6H PRN shortness 03/27/23 10/03/23 Rx breath activated powder inhaler of breath #1 ea bupropion HCl 100 mg tablet,12 hr See Rx Instructions .Route 04/26/23 10/03/23 Rx sustained-release .COMPLEX #180 TABLETS doxazosin 2 mg tablet 2 mg PO QHS #90 tabs 04/26/23 10/03/23 Rx hydrochlorothiazide 25 mg tablet 25 mg PO QAM #90 tabs 04/26/23 10/03/23 Rx levothyroxine 25 mcg tablet See Rx Instructions .Route 04/26/23 10/03/23 Rx .COMPLEX #90 tabs lisinopril 40 mg tablet See Rx Instructions .Route 04/26/23 10/03/23 Rx .COMPLEX #90 tabs montelukast 10 mg tablet 10 mg PO QHS #90 tabs 04/26/23 10/03/23 Rx (Singulair) propranolol 20 mg tablet See Rx Instructions .Route 04/26/23 10/03/23 Rx .COMPLEX #180 tabs rosuvastatin 10 mg tablet See Rx Instructions .Route 04/26/23 10/03/23 Rx .COMPLEX #90 tabs quetiapine 25 mg tablet (Seroquel) 25 mg PO QAM PRN anxiety #90 tabs 07/03/23 10/03/23 Rx quetiapine 50 mg tablet 50 mg PO BID 3 months #180 tabs 07/03/23 10/03/23 Rx PFSH Medical History Bipolar depression URI (upper respiratory infection) Chest congestion Obesity (BMI 30-39.9) Anxiety and depression Cervical radiculopathy Cervical strain Hypogonadism Vitamin deficiency Dental infection Bipolar affect, depressed Metabolic disorder Anxiety Allergic rhinitis Vitamin deficiency Fatigue JOSEPHINE (obstructive sleep apnea) Hypothyroidism Hyperlipidemia HTN (hypertension) History of cellulitis History of separation anxiety Depression Blood clot in vein Pulmonary embolism High blood pressure Frequent headaches Drug abuse History of back problems Surgical History No history of previous surgery Family History Father Alcoholism Grandfather Colon cancer Brother Anxiety and depression Social History Smoking Status: Never smoker Smokeless tobacco user: chewing tobacco alcohol intake: never substance use type: former substance user what type of physical activity do you participate in: walking HPI HPI Chief Complaint: Follow-up chronic conditions Details: LEANNE COOPER, is a 43 M who presents to the office today for follow-up of his chronic medical conditions. Also has some concerns. He states that lately, with change in position he has felt more lightheaded. Blood pressure readings have been slightly lower. He has made more dietary and lifestyle changes. He admits to insufficient fluid intake. Taking all his medications as prescribed. Other chronic medical conditions are stable. He is well otherwise. ROS Const Constitutional: No body ache, chills, excessive sweating, fatigue, fever(s), frequent falls, headache(s), snoring, weakness or change in appetite Eyes Eyes: No blurry vision, change in vision, bulging eyes, visual disturbances, eye pain or Light sensitivity ENT ENT: No abnormal hearing, ear or mastoid pain, tinnitus, balance problems, nosebleed/epistaxis, (more content not included)... Normal [facility] Basophil percentageOrdered B y: Satinder Nunez on 04-10-2023 Bilirubin [Mass/Vol] 0.50 mg/dL 0.20-1.00 [facility] Comment on above: For patients on eltr ombopag therapy, use of Dimension [employer] TBIL is not recommended. Chloride [Moles/Vol] 105 mmol/L 98-107 [facility] Cholesterol [Mass/Vol] 211 mg/dL <200 [facility] Comment on above: <200 mg/dL Desirable 200-240 mg/dL Borderline >240 mg/dL High Risk Glucose [Mass/Vol] 92 mg/dL 74-106 [facility] Potassium [Moles/Vol] 4.9 mmol/L 3.5-5.1 [facility] Protein [Mass/Vol] 7.4 g/dL 6.4-8.2 [facility] Sodium [Moles/Vol] 138 mmol/L 136-145 [facility] Triglyceride [Mass/Vol] 53 mg/dL <199 [facility] Comment on above: The drugs N-Acetylcy steine and Metamizole may falsely depress this assay.Serum Triglycerides Reference Interval Normal <150 mg/dL Borderline high 150 - 199 mg/dL High 200 - 499 mg/dL Very High > or = 500 mg/dL Laboratory - Chemistry and C hemistry - challengeOrdered By: Satinder Nunez on 04-10-2023 Albumin/Globulin [Mass ratio] 1.3 {ratio} 0.9-2.4 [facility] ALP [Catalytic activity/Vol] 93 U/L 45-117 [facility] ALT [Catalytic activity/Vol] 22 U/L 16-61 [facility] Cholesterol in HDL [Mass/Vol] 81 mg/dL >40 [facility] Comment on above: The drugs N-Acetylcy steine and Metamizole may falsely depress this assay. Reference Range HDL <40 mg/dL Low HDL Cholesterol HDL >or= 60 mg/dL High HDL Cholesterol Cholesterol in LDL [Mass/Vol] 119 mg/dL 0-130 [facility] CO2 [Moles/Vol] 30.0 mmol/L 21.0-32.0 [facility] Globulin (S) [Mass/Vol] 3.2 g/dL 2.2-4.2 [facility] Urea nitrogen/Creatinine [Mass ratio] 15.7 mg/mg 10-20 [facility] No Panel InformationOrdered By: Satinder Nunez on 04-10-2023 Estimated GFR (MDRD) Amer 96 mL/min >60 [facility] Comment on above: GFR Calc Estimated GFR (MDRD) Non-Af Amer 79 mL/min >60 [facility] Comment on above: Non- GFR Calc VLDL Cholesterol 11 mg/dL 5-40 [facility] Serum or plasma calcium andria urement (mass/volume)Ordered By: Satinder Nunez on 04-10-2023 Calcium [Mass/Vol] 9.1 mg/dL 8.5-10.1 [facility] Serum or plasma creatinine m easurement (mass/volume)Ordered By: Satinder Nunez on 04-10-2023 Creatinine [Mass/Vol] 1.08 mg/dL 0.70-1.30 [facility] Comment on above: The validity of the calculated GFR & GFRAA in patients over 70 years has not been determined. Clinical correlation is essential. Serum or plasma thyroid stim ulating hormone (TSH) measurement (units/volume)Ordered By: Jaunseldenmera Nunez on 04-10-2023 TSH Qn 2.84 uIU/mL 0.358-3.74 [facility] Serum or plasma urea nitroge n measurement (mass/volume)Ordered By: Satinder Nunez on 04-10-2023 Urea nitrogen [Mass/Vol] 17 mg/dL 7-18 [facility] Thin prep Papanicolaou smear with manual screeningOrdered By: Satinder Nunez on 04-10-2023 Thin prep Papanicolaou smear with manual screening 4.2 g/dL 3.2-5.0 [facility] Thin prep Papanicolaou smear with manual screening 23 U/L 15-37 [facility] Thin prep Papanicolaou smear with manual screening 3 5-15 [facility] Basophil percentageOrdered B y: Minnie Santos on 03-28-2023 Basophil percentage < 1.0 mg/dL 0.70-1.30 [facility] No Panel InformationOrdered By: Minnie Santos on 03-28-2023 Bedside Estimated GFR (eGFR) > 60.0000 mL/min >60 [facility] Absolute lymphocyte countOrd ered By: Minnie Santos on 03-27-2023 Lymphocytes Auto (Unsp spec) [#/Vol] 0.22 10*3/uL 0.83-4.51 [facility] Automated lymphocyte count a s percentage of total leukocytesOrdered By: Minnie Santos on 03-27-2023 Lymphocytes/100 WBC Auto (Unsp spec) 5.7 % 19-41 [facility] Basophil percentageOrdered B y: Minnie Santos on 03-27-2023 Basophils/100 WBC (Bld) 0.3 % 0-1 [facility] Eosinophils/100 WBC (Bld) 0.5 % 0-5 [facility] Hemoglobin (Bld) [Mass/Vol] 12.2 g/dL 13.0-16.5 [facility] Monocytes/100 WBC (Bld) 14.4 % 0-10 [facility] Neutrophils (Bld) [#/Vol] 3.1 10*3/uL 2.0-7.7 [facility] Neutrophils/100 WBC (Bld) 78.6 % 47-70 [facility] WBC (Bld) [#/Vol] 3.9 10*3/uL 4.4-11.0 [facility] Determination of erythrocyte mean corpuscular volume (MCV)Ordered By: Minnie Santos on 03-27-2023 MCV (RBC) [Entitic vol] 93.1 fL 80-94 [facility] Erythrocyte distribution wid th ratioOrdered By: Minnie Santos on 03-27-2023 Erythrocyte distribution width (RBC) [Ratio] 13.0 % 11.6-14.6 [facility] Erythrocyte distribution wid th standard deviationOrdered By: Minnie Santos on 03-27-2023 Erythrocyte distribution width (RBC) [Entitic vol] 44.7 fL 35.1-43.9 [facility] Hematocrit Auto (Bld) [Volum e fraction]Ordered By: Minnie Santos on 03-27-2023 Hematocrit (Bld) [Volume fraction] 37.5 % 40-54 [facility] Immature granulocytes/100 WB C Auto (Bld)Ordered By: Minnie Santos on 03-27-2023 Immature granulocytes/100 WBC (Bld) 0.500 % 0.0-0.9 [facility] Comment on above: IG% - Immature Granu locytes (promyelocytes, myelocytes and metamyelocytes) > 1% indicates that a LEFT SHIFT is Present. Laboratory - Hematology and Cell countsOrdered By: Minnie Santos on 03-27-2023 MCH (RBC) [Entitic mass] 30.3 pg 27.0-32.0 [facility] MCHC (RBC) [Mass/Vol] 32.5 g/dL 32-36 [facility] Nucleated RBC/100 WBC (Bld) [Ratio] 0 % 0-5 [facility] Platelets (Bld) [#/Vol] 173 10*3/uL 150-450 [facility] - Microbiology an d Antimicrobial susceptibilityOrdered By: Minnie Santos on 03-27-2023 SARS-CoV-2 (COVID-19) RNA CRYSTAL+probe Ql (Unsp spec) Influenzae A [facility] No Panel InformationOrdered By: Minnie Santos on 03-27-2023 D-Dimer Quantitative (PE/DVT) 1.02 FEU/ug/m 0.27-0.49 [facility] Comment on above: CRITICAL VALUE VERIF IED. CALLED TO [id number]/01/24 1241 Beth Moody.RESULTS READ BACK BY SAME . D-Dimer ELEVATED (>0.49): Additional studies and clinicalassessments are indicated to conclude diagnosis of:Deep Vein Thrombosis (DVT) or Pulmonary Embolism (PE) No Panel Informationon 03-27 Influenza Types A,B Rapid (Clinic) Negative [facility] Platelet mean volume Deandre-Ec ker (Bld) [Entitic vol]Ordered By: Minnie Santos on 03-27-2023 Platelet mean volume (Bld) [Entitic vol] 11.1 fL 6.2-12.0 [facility] RBC Auto (Bld) [#/Vol]Ordere d By: Minnie Santos on 03-27-2023 RBC (Bld) [#/Vol] 4.03 10*6/uL 4.6-6.2 [facility] Basophil percentageOrdered B y: Satinder Nunez on 12-18-2022 Chloride [Moles/Vol] 104 mmol/L 98-107 [facility] Glucose [Mass/Vol] 84 mg/dL 74-106 [facility] Potassium [Moles/Vol] 4.6 mmol/L 3.5-5.1 [facility] Sodium [Moles/Vol] 137 mmol/L 136-145 [facility] Laboratory - Chemistry and C hemistry - challengeOrdered By: Satinder Nunez on 12-18-2022 CO2 [Moles/Vol] 28.0 mmol/L 21.0-32.0 [facility] Urea nitrogen/Creatinine [Mass ratio] 27.7 mg/mg 10- [facility] No Panel InformationOrdered By: Satinder Nunez on 12-18-2022 Estimated GFR (MDRD) Amer 103 mL/min >60 [facility] Comment on above: GFR Calc Estimated GFR (MDRD) Non-Af Amer 86 mL/min >60 [facility] Comment on above: Non- GFR Calc Thyroid Stimulating Hormone (TSH) 1.70 uIU/mL 0.358-3.74 [facility] Serum or plasma calcium andria urement (mass/volume)Ordered By: Satinder Nunez on 12-18-2022 Calcium [Mass/Vol] 9.1 mg/dL 8.5-10.1 [facility] Serum or plasma creatinine m easurement (mass/volume)Ordered By: Satinder Nunez on 12-18-2022 Creatinine [Mass/Vol] 1.01 mg/dL 0.70-1.30 [facility] Comment on above: The validity of the calculated GFR & GFRAA in patients over 70 years has not been determined. Clinical correlation is essential. Serum or plasma urea nitroge n measurement (mass/volume)Ordered By: Satinder Nunez on 12-18-2022 Urea nitrogen [Mass/Vol] 28 mg/dL 7-18 [facility] Thin prep Papanicolaou smear with manual screeningOrdered By: Satinder Nunez on 12-18-2022 Thin prep Papanicolaou smear with manual screening 5 5-15 [facility] Absolute lymphocyte countOrd ered By: Abdulkadir Marina on 03-12-2022 Lymphocytes Auto (Unsp spec) [#/Vol] 1.53 10*3/uL 0.83-4.51 [facility] Basophil percentageOrdered B y: Abdulkadir Marina on 03-12-2022 Basophils/100 WBC (Bld) 0.2 % 0-1 [facility] Bilirubin [Mass/Vol] 0.60 mg/dL 0.20-1.00 [facility] Comment on above: For patients on eltr ombopag therapy, use of Dimension [employer] TBIL is not recommended. Chloride [Moles/Vol] 102 mmol/L 98-107 [facility] Cholesterol [Mass/Vol] 227 mg/dL <200 [facility] Comment on above: <200 mg/dL Desirable 200-240 mg/dL Borderline >240 mg/dL High Risk Eosinophils/100 WBC (Bld) 1.3 % 0-5 [facility] Glucose [Mass/Vol] 88 mg/dL 74-106 [facility] Neutrophils (Bld) [#/Vol] 3.4 10*3/uL 2.0-7.7 [facility] Neutrophils/100 WBC (Bld) 63.9 % 47-70 [facility] Potassium [Moles/Vol] 4.3 mmol/L 3.5-5.1 [facility] Protein [Mass/Vol] 8.0 g/dL 6.4-8.2 [facility] Sodium [Moles/Vol] 136 mmol/L 136-145 [facility] Triglyceride [Mass/Vol] 115 mg/dL <199 [facility] Comment on above: The drugs N-Acetylcy steine and Metamizole may falsely depress this assay.Serum Triglycerides Reference Interval Normal <150 mg/dL Borderline high 150 - 199 mg/dL High 200 - 499 mg/dL Very High > or = 500 mg/dL WBC (Bld) [#/Vol] 5.4 10*3/uL 4.4-11.0 [facility] Blood erythrocytes count (nu mber/volume)Ordered By: Abdulkadir Laina on 03-12-2022 RBC (Bld) [#/Vol] 4.34 10*6/uL 4.6-6.2 [facility] Blood hemoglobin measurement (mass/volume)Ordered By: Abdulkadir Marina on 03-12-2022 Hemoglobin (Bld) [Mass/Vol] 13.1 g/dL 13.0-16.5 [facility] Blood lymphocytes/100 leukoc ytesOrdered By: Abdulkadir Marina on 03-12-2022 Lymphocytes/100 WBC (Bld) 28.6 % 19-41 [facility] Blood monocytes/100 leukocyt esOrdered By: Abdulkadir Marina on 03-12-2022 Monocytes/100 WBC (Bld) 5.8 % 0-10 [facility] [place] Blood platelet mean volumeOr dered By: Abdulkadir Marina on 03-12-2022 Platelet mean volume (Bld) [Entitic vol] 10.8 fL 6.2-12.0 [facility] Determination of erythrocyte mean corpuscular volume (MCV)Ordered By: Abdulkadir Marina on 03-12-2022 MCV (RBC) [Entitic vol] 91.2 fL 80-94 [facility] Hematocrit Auto (Bld) [Volum e fraction]Ordered By: Abdulkadir Marina on 03-12-2022 Hematocrit (Bld) [Volume fraction] 39.6 % 40-54 [facility] Laboratory - Chemistry and C hemistry - challengeOrdered By: Abdulkadir Marina on 03-12-2022 ALP [Catalytic activity/Vol] 91 U/L 45-117 [facility] ALT [Catalytic activity/Vol] 23 U/L 16-61 [facility] CO2 [Moles/Vol] 26.0 mmol/L 21.0-32.0 [facility] Cobalamin (Vitamin B12) [Mass/Vol] 423 pg/mL 211-911 [facility] Globulin (S) [Mass/Vol] 3.8 g/dL 2.2-4.2 [facility] Urea nitrogen/Creatinine [Mass ratio] 18.9 mg/mg 10-20 [facility] Laboratory - Hematology and Cell countsOrdered By: Abdulkadir Marina on 03-12-2022 Erythrocyte distribution width (RBC) [Entitic vol] 39.8 fL 35.1-43.9 [facility] Erythrocyte distribution width (RBC) [Ratio] 11.9 % 11.6-14.6 [facility] Immature granulocytes/100 WBC (Bld) 0.200 % 0.0-0.9 [facility] Comment on above: IG% - Immature Granu locytes (promyelocytes, myelocytes and metamyelocytes) > 1% indicates that a LEFT SHIFT is Present. MCH (RBC) [Entitic mass] 30.2 pg 27.0-32.0 [facility] Nucleated RBC/100 WBC (Bld) [Ratio] 0 % 0-5 [facility] MCHC Auto (RBC) [Mass/Vol]Or dered By: Abdulkadir Marina on 03-12-2022 MCHC (RBC) [Mass/Vol] 33.1 g/dL 32-36 [facility] No Panel InformationOrdered By: Abdulkadir Marina on 03-12-2022 Estimated GFR (MDRD) Amer 98 mL/min >60 [facility] Comment on above: GFR Calc Estimated GFR (MDRD) Non-Af Amer 81 mL/min >60 [facility] Comment on above: Non- GFR Calc Thyroid Stimulating Hormone (TSH) 2.02 uIU/mL 0.358-3.74 [facility] Vitamin D 25-Hydroxy 20.2 ng/mL [facility] Comment on above: Vitamin D 25(OH) Sta tus Range Deficiency <20 ng/mL (50nmol/L) Insufficiency 20 - 30 ng/mL (50 - 75 nmol/L) Sufficiency 30 - 100 ng/mL (75 - 250 nmol/L) Toxicity >100 ng/mL (>250 nmol/L) Platelets bldOrdered By: Shannan Marina on 03-12-2022 Platelets (Bld) [#/Vol] 216 10*3/uL 150-450 [facility] Serum or plasma albumin andria urement (mass/volume)Ordered By: Abdulkadir Marina on 03-12-2022 Albumin [Mass/Vol] 4.2 g/dL 3.2-5.0 [facility] Serum or plasma albumin/glob ulin mass ratioOrdered By: Abdulkadir Marina on 03-12-2022 Albumin/Globulin [Mass ratio] 1.1 {ratio} 0.9-2.4 [facility] Serum or plasma calcium andria urement (mass/volume)Ordered By: Abdulkadir Marina on 03-12-2022 Calcium [Mass/Vol] 9.1 mg/dL 8.5-10.1 [facility] Serum or plasma cholesterol in HDL measurement (mass/volume)Ordered By: Abdulkadir Marina on 03-12-2022 Cholesterol in HDL [Mass/Vol] 64 mg/dL >40 [facility] Comment on above: The drugs N-Acetylcy steine and Metamizole may falsely depress this assay. Reference Range HDL <40 mg/dL Low HDL Cholesterol HDL >or= 60 mg/dL High HDL Cholesterol Serum or plasma cholesterol in VLDL measurement (mass/volume)Ordered By: Abdulkadir Marina on 03-12-2022 Cholesterol in VLDL [Mass/Vol] 23 mg/dL 5-40 [facility] Serum or plasma creatinine m easurement (mass/volume)Ordered By: Abdulkadir Marina on 03-12-2022 Creatinine [Mass/Vol] 1.06 mg/dL 0.70-1.30 [facility] Comment on above: The validity of the calculated GFR & GFRAA in patients over 70 years has not been determined. Clinical correlation is essential. Serum or plasma low density lipoprotein (LDL) cholesterol measurement (mass/volume)Ordered By: Adbulkadir Marina on 03-12-2022 Cholesterol in LDL [Mass/Vol] 140 mg/dL 0-130 [facility] Serum or plasma urea nitroge n measurement (mass/volume)Ordered By: Abdulkadir Marina on 03-12-2022 Urea nitrogen [Mass/Vol] 20 mg/dL 7-18 [facility] Thin prep Papanicolaou smear with manual screeningOrdered By: Abdulkadir Marina on 03-12-2022 Thin prep Papanicolaou smear with manual screening 18 U/L 15-37 [facility] Thin prep Papanicolaou smear with manual screening 8 5-15 [facility] Whole blood hemoglobin A1c/t otal hemoglobin ratio (mass fraction)Ordered By: Abdulkadir Marina on 03-12-2022 HbA1c (Bld) [Mass fraction] 4.9 % 3.8-5.6 [facility] Comment on above: Normal < 5.7 % Predi abetic 5.7 - 6.4 % Diabetic >or= 6.5 % Please note range changes. Laboratory - Microbiology an d Antimicrobial susceptibilityon 11-20-2021 SARS-CoV-2 (COVID-19) RNA CRYSTAL+probe Ql (Unsp spec) Not detected Not Detect [facility] Work Phone: Comment on above: Normal Reference Ran ge: Not DetectedMethod:(RT-PCR) real-time reverse transcriptase PCRLuminex ANTONIO Instrument*The Food and Drug Administration (FDA) has issued an Emergency Use Authorization (EAU) for the ANTONIO SARS-CoV-2 Assay for the rapid detection of the virus that causes COVID-19. This test has been validated, but the FDAs independent review of this validation is pending.*Negative results do not preclude infection and should not be used as the sole basis for treatment or patient management. Optimum specimen types and timing for peak viral levels during infections caused by SARS-CoV-2 have not been determined. Collection of multiple specimens from the same patient may be necessary to detect the virus. The possibility of a false negative result should be considered if the patient has clinical presentation or has had recent exposure. S. pyogenes Ag IA Ql (Unsp spec) Negative [facility] Work Phone: Basophil percentageon 2021 Testosterone [Mass/Vol] 298 ng/dL 264-916 [facility] [place] Work Phone: Comment on above: Adult male reference interval is based on a population ofhealthy nonobese males (BMI <30) between 19 and 39 yearsold. Faby et.al. JCEM 2017,102;[id number]. PMID:[id number]. Free testosterone percentage on 08-24-2021 Testosterone Free/Testosterone.total [Mass fraction] 1.57 % 1.50-4.20 [facility] Work Phone: Comment on above: Performed at: [address] [id number] Director: Jonathon Rock PhD, Phone: [phone] at: [facility] [id number] Director: Will Harvey MD, Phone: [phone] Laboratory - Chemistry and C hemistry - challengeon 08-24-2021 Cobalamin (Vitamin B12) [Mass/Vol] 262 pg/mL 211-911 [facility] Work Phone: No Panel Informationon 08-24 Thyroid Stimulating Hormone (TSH) 2.61 uIU/mL 0.358-3.74 [facility] Work Phone: Vitamin D 25-Hydroxy 33.8 ng/mL [facility] Work Phone: Comment on above: Vitamin D 25(OH) Sta tus Range Deficiency <20 ng/mL (50nmol/L) Insufficiency 20 - 30 ng/mL (50 - 75 nmol/L) Sufficiency 30 - 100 ng/mL (75 - 250 nmol/L) Toxicity >100 ng/mL (>250 nmol/L) Serum or plasma testosterone free measurement (mass/volume)on 08-24-2021 Testosterone Free [Mass/Vol] 4.68 ng/dL 5.00-21.00 [facility] Work Phone: Absolute lymphocyte counton 2021 Lymphocytes Auto (Unsp spec) [#/Vol] 1.47 10*3/uL 0.83-4.51 [facility] Work Phone: Basophil percentageon 2021 Basophils/100 WBC (Bld) 0.3 % 0-1 [facility] Work Phone: Bilirubin [Mass/Vol] 0.20 mg/dL 0.20-1.00 [facility] Work Phone: Comment on above: For patients on eltr ombopag therapy, use of [employer] TBIL is not recommended. Chloride [Moles/Vol] 107 mmol/L 98-107 [facility] Work Phone: Cholesterol [Mass/Vol] 183 mg/dL <200 [facility] Work Phone: Comment on above: <200 mg/dL Desirable 200-240 mg/dL Borderline >240 mg/dL High Risk Eosinophils/100 WBC (Bld) 1.5 % 0-5 [facility] Work Phone: Glucose [Mass/Vol] 109 mg/dL 74-106 [facility] Work Phone: Comment on above: Fasting Glucose resu lt from 100 to 125 mg/dL suggests IMPAIRED HOMEOSTASIS per A.D.A. criteria. Neutrophils (Bld) [#/Vol] 4.0 10*3/uL 2.0-7.7 [facility] Work Phone: Neutrophils/100 WBC (Bld) 64.8 % 47-70 [facility] Work Phone: Potassium [Moles/Vol] 5.0 mmol/L 3.5-5.1 [facility] Work Phone: [phone] Protein [Mass/Vol] 7.4 g/dL 6.4-8.2 [facility] Work Phone: Sodium [Moles/Vol] 138 mmol/L 136-145 [facility] Work Phone: [phone] Triglyceride [Mass/Vol] 138 mg/dL <199 [facility] [place] Work Phone: Comment on above: The drugs N-Acetylcy steine and Metamizole may falsely depress this assay.Serum Triglycerides Reference Interval Normal <150 mg/dL Borderline high 150 - 199 mg/dL High 200 - 499 mg/dL Very High > or = 500 mg/dL WBC (Bld) [#/Vol] 6.1 10*3/uL 4.4-11.0 [facility] Work Phone: Blood erythrocytes count (nu mber/volume)on 2021 RBC (Bld) [#/Vol] 4.35 10*6/uL 4.6-6.2 [facility] Work Phone: Blood hemoglobin measurement (mass/volume)on 2021 Hemoglobin (Bld) [Mass/Vol] 13.0 g/dL 13.0-16.5 [facility] Work Phone: [phone] Blood lymphocytes/100 leukoc yteson 2021 Lymphocytes/100 WBC (Bld) 24.1 % 19-41 [facility] Work Phone: [phone] Blood monocytes/100 leukocyt eson 2021 Monocytes/100 WBC (Bld) 9.0 % 0-10 [facility] Work Phone: [phone] Blood platelet mean volumeon 2021 Platelet mean volume (Bld) [Entitic vol] 11.8 fL 6.2-12.0 [facility] Work Phone: [phone] Determination of erythrocyte mean corpuscular volume (MCV)on 2021 MCV (RBC) [Entitic vol] 92.2 fL 80-94 [facility] Work Phone: [phone] Hematocrit Auto (Bld) [Volum e fraction]on 2021 Hematocrit (Bld) [Volume fraction] 40.1 % 40-54 [facility] Work Phone: Laboratory - Chemistry and C hemistry - challengeon 2021 ALP [Catalytic activity/Vol] 102 U/L 45-117 [facility] Work Phone: [phone] ALT [Catalytic activity/Vol] 22 U/L 16-61 [facility] Work Phone: [phone] CO2 [Moles/Vol] 25.0 mmol/L 21.0-32.0 [facility] Work Phone: [phone] Globulin (S) [Mass/Vol] 3.4 g/dL 2.2-4.2 [facility] [place] Work Phone: [phone] Urea nitrogen/Creatinine [Mass ratio] 21.1 mg/mg 10-20 [facility] Work Phone: [phone] Laboratory - Hematology and Cell countson 2021 Erythrocyte distribution width (RBC) [Entitic vol] 44.0 fL 35.1-43.9 [facility] Work Phone: [phone] Erythrocyte distribution width (RBC) [Ratio] 13.0 % 11.6-14.6 [facility] Work Phone: [phone] Immature granulocytes/100 WBC (Bld) 0.300 % 0.0-0.9 [facility] Work Phone: [phone] Comment on above: IG% - Immature Granu locytes (promyelocytes, myelocytes and metamyelocytes) > 1% indicates that a LEFT SHIFT is Present. MCH (RBC) [Entitic mass] 29.9 pg 27.0-32.0 [facility] Work Phone: Nucleated RBC/100 WBC (Bld) [Ratio] 0 % 0-5 [facility] Work Phone: MCHC Auto (RBC) [Mass/Vol]on 2021 MCHC (RBC) [Mass/Vol] 32.4 g/dL 32-36 [facility] Work Phone: No Panel Informationon 06-22 Estimated GFR (MDRD) Amer 91 mL/min >60 [facility] Work Phone: Comment on above: GFR Calc Estimated GFR (MDRD) Non-Af Amer 75 mL/min >60 [facility] Work Phone: Comment on above: Non- GFR Calc Thyroid Stimulating Hormone (TSH) 2.99 uIU/mL 0.358-3.74 [facility] Work Phone: Platelets bldon 2021 Platelets (Bld) [#/Vol] 232 10*3/uL 150-450 [facility] Work Phone: Serum or plasma albumin andria urement (mass/volume)on 2021 Albumin [Mass/Vol] 4.0 g/dL 3.2-5.0 [facility] Work Phone: [phone] Serum or plasma albumin/glob ulin mass ratioon 2021 Albumin/Globulin [Mass ratio] 1.2 {ratio} 0.9-2.4 [facility] Work Phone: [phone] Serum or plasma calcium andria urement (mass/volume)on 2021 Calcium [Mass/Vol] 8.9 mg/dL 8.5-10.1 [facility] Work Phone: [phone] Serum or plasma cholesterol in HDL measurement (mass/volume)on 2021 Cholesterol in HDL [Mass/Vol] 53 mg/dL >40 [facility] Work Phone: Comment on above: The drugs N-Acetylcy steine and Metamizole may falsely depress this assay. Reference Range HDL <40 mg/dL Low HDL Cholesterol HDL >or= 60 mg/dL High HDL Cholesterol Serum or plasma cholesterol in VLDL measurement (mass/volume)on 2021 Cholesterol in VLDL [Mass/Vol] 28 mg/dL 5-40 [facility] Work Phone: Serum or plasma creatinine m easurement (mass/volume)on 2021 Creatinine [Mass/Vol] 1.14 mg/dL 0.70-1.30 [facility] Work Phone: Comment on above: The validity of the calculated GFR & GFRAA in patients over 70 years has not been determined. Clinical correlation is essential. Serum or plasma low density lipoprotein (LDL) cholesterol measurement (mass/volume)on 2021 Cholesterol in LDL [Mass/Vol] 102 mg/dL 0-130 [facility] Work Phone: Serum or plasma urea nitroge n measurement (mass/volume)on 2021 Urea nitrogen [Mass/Vol] 24 mg/dL 7-18 [facility] Work Phone: Thin prep Papanicolaou smear with manual screeningon 2021 Thin prep Papanicolaou smear with manual screening 19 U/L 15-37 [facility] Work Phone: Thin prep Papanicolaou smear with manual screening 6 5-15 [facility] Work Phone: .Auto Diffon 05-22-2021 Basophil, Absolute 0.00 10 3/mcL Normal 0.00-0.19 [facility] ([place]) Comment on above: Performed By: #### B CAROL, TROPHS, PBNP, ANEU, ADIFF, CBC, GFR #### [id number] [place], [place] [address] Basophils/100 WBC (Bld) 0.7 % Normal 0.0-2.5 [facility] ([place]) Comment on above: Performed By: #### B MP, TROPHS, PBNP, ANEU, ADIFF, CBC, GFR #### [address] [address] Eosinophil, Absolute 0.10 10 3/mcL Normal 0.00-0.40 [facility] ([place]) Comment on above: Performed By: #### B MP, TROPHS, PBNP, ANEU, ADIFF, CBC, GFR #### [address] [address] Eosinophils/100 WBC (Bld) 1.4 % Normal 0.0-7.0 [facility] ([place]) Comment on above: Performed By: #### B MP, TROPHS, PBNP, ANEU, ADIFF, CBC, GFR #### [address] [address] Lymphocyte, Absolute 1.20 10 3/mcL Normal 0.77-3.85 [facility] ([place]) Comment on above: Performed By: #### B MP, TROPHS, PBNP, ANEU, ADIFF, CBC, GFR #### [address] [address] Lymphocytes/100 WBC (Bld) 22.7 % Normal 10.0-50.0 [facility] ([place]) Comment on above: Performed By: #### B MP, TROPHS, PBNP, ANEU, ADIFF, CBC, GFR #### [address] [address] Monocyte, Absolute 0.30 10 3/mcL Normal 0.15-1.00 [facility] ([place]) Comment on above: Performed By: #### B MP, TROPHS, PBNP, ANEU, ADIFF, CBC, GFR #### [address] [address] Monocytes/100 WBC (Bld) 6.4 % Normal 1.7-13.0 [facility] ([place]) Comment on above: Performed By: #### B MP, TROPHS, PBNP, ANEU, ADIFF, CBC, GFR #### [address] [address] Neutrophils/100 WBC (Bld) 68.8 % Normal 37.0-80.0 [facility] ([place]) Comment on above: Performed By: #### B MP, TROPHS, PBNP, ANEU, ADIFF, CBC, GFR #### [address] [address] .GFRon 05-22-2021 GFR 79 ml/min/1.73sqm Normal [facility] ([place]) Comment on above: Result Comment: GFR Population mean for , Non- Americans Ages 20-29 = 116 mL/min/1.73 sq.m. Ages 30-39 = 107 mL/min/1.73 sq.m. Ages 40-49 = 99 mL/min/1.73 sq.m. Ages 50-59 = 93 mL/min/1.73 sq.m. Ages 60-69 = 85 mL/min/1.73 sq.m. Ages 70+ = 75 mL/min/1.73 sq.m. Chronic Kidney Disease: Less than 60 mL/min/1.73 square meters End Stage Renal Disease: Less than 15 mL/min/1.73 square meters Performed By: #### B MP, TROPHS, PBNP, ANEU, ADIFF, CBC, GFR #### [address] [address] GFR Non- 65 ml/min/1.73sqm Normal [facility] ([place]) Comment on above: Result Comment: GFR Population mean for , Non- Americans Ages 20-29 = 116 mL/min/1.73 sq.m. Ages 30-39 = 107 mL/min/1.73 sq.m. Ages 40-49 = 99 mL/min/1.73 sq.m. Ages 50-59 = 93 mL/min/1.73 sq.m. Ages 60-69 = 85 mL/min/1.73 sq.m. Ages 70+ = 75 mL/min/1.73 sq.m. Chronic Kidney Disease: Less than 60 mL/min/1.73 square meters End Stage Renal Disease: Less than 15 mL/min/1.73 square meters Performed By: #### B MP, TROPHS, PBNP, ANEU, ADIFF, CBC, GFR #### [address] [address] .NEUABSon 05-22-2021 Neutrophil, Absolute 3.70 10 3/mcL Normal 2.85-6.16 [facility] ([place]) Comment on above: Performed By: #### B MP, TROPHS, PBNP, ANEU, ADIFF, CBC, GFR #### [address] [address] BMPon 05-22-2021 BUN/Creatinine Ratio 17 ratio Normal 7-27 [facility] ([place]) Comment on above: Performed By: #### B MP, TROPHS, PBNP, ANEU, ADIFF, CBC, GFR #### [address] [address] Calcium [Mass/Vol] 9.1 mg/dL Normal 8.4-10.2 [facility] ([place]) Comment on above: Performed By: #### B MP, TROPHS, PBNP, ANEU, ADIFF, CBC, GFR #### [address] [address] Chloride [Moles/Vol] 103 mmol/L Normal 98-107 [facility] ([place]) Comment on above: Performed By: #### B MP, TROPHS, PBNP, ANEU, ADIFF, CBC, GFR #### [address] [address] CO2 [Moles/Vol] 26 mmol/L Normal 22-29 [facility] ([place]) Comment on above: Performed By: #### B MP, TROPHS, PBNP, ANEU, ADIFF, CBC, GFR #### [address] [address] Creatinine [Mass/Vol] 1.23 mg/dL Normal 0.70-1.30 [facility] ([place]) Comment on above: Performed By: #### B MP, TROPHS, PBNP, ANEU, ADIFF, CBC, GFR #### [address] [address] Electrolyte Balance 10.0 mEq/L Normal 4.0-15.0 [facility] ([place]) Comment on above: Performed By: #### B MP, TROPHS, PBNP, ANEU, ADIFF, CBC, GFR #### [address] [address] Glucose [Mass/Vol] 113 mg/dL High 70-105 [facility] ([place]) Comment on above: Performed By: #### B MP, TROPHS, PBNP, ANEU, ADIFF, CBC, GFR #### [address] [address] Potassium [Moles/Vol] 5.1 mmol/L Normal 3.5-5.1 [facility] ([place]) Comment on above: Performed By: #### B MP, TROPHS, PBNP, ANEU, ADIFF, CBC, GFR #### [address] [address] Sodium [Moles/Vol] 139 mmol/L Normal 136-145 [facility] ([place]) Comment on above: Performed By: #### B MP, TROPHS, PBNP, ANEU, ADIFF, CBC, GFR #### [address] [address] Urea nitrogen [Mass/Vol] 21 mg/dL High 7-18 [facility] ([place]) Comment on above: Performed By: #### B MP, TROPHS, PBNP, ANEU, ADIFF, CBC, GFR #### [address] [address] CBCon 05-22-2021 Erythrocyte distribution width (RBC) [Ratio] 13.7 % Normal 11.5-14.5 [facility]) Comment on above: Performed By: #### G FR, BMP, ANEU, ADIFF, CBC #### [address] [address] Hematocrit (Bld) [Volume fraction] 38.5 % Low 42.0-52.0 [facility] ([place]) Comment on above: Performed By: #### G FR, BMP, ANEU, ADIFF, CBC #### [address] [address] Hgb 13.0 G/dL Low 14.0-18.0 [facility] ([place]) Comment on above: Performed By: #### G FR, BMP, ANEU, ADIFF, CBC #### [address] [address] MCH (RBC) [Entitic mass] 29.4 pg Normal 27.0-31.2 [facility] ([place]) Comment on above: Performed By: #### G FR, BMP, ANEU, ADIFF, CBC #### [address] [address] MCHC 33.9 G/dL Normal 31.8-35.4 [facility] ([place]) Comment on above: Performed By: #### G FR, BMP, ANEU, ADIFF, CBC #### [address] [address] MCV (RBC) [Entitic vol] 86.8 fL Normal 80.0-94.0 [facility] ([place]) Comment on above: Performed By: #### G FR, BMP, ANEU, ADIFF, CBC #### [address] [address] Platelet 245 10 3/mcL Normal 130-400 [facility] ([place]) Comment on above: Performed By: #### G FR, BMP, ANEU, ADIFF, CBC #### [address] [address] Platelet mean volume (Bld) [Entitic vol] 9.0 fL Normal 7.4-10.4 [facility] ([place]) Comment on above: Performed By: #### G FR, BMP, ANEU, ADIFF, CBC #### [address] [address] RBC 4.43 10 6/mcL Normal 4.04-6.13 [facility] ([place]) Comment on above: Performed By: #### G FR, BMP, ANEU, ADIFF, CBC #### [address] [address] WBC 5.40 10 3/mcL Normal 4.60-10.80 [facility] ([place]) Comment on above: Performed By: #### G FR, BMP, ANEU, ADIFF, CBC #### [id number] [place], [place] [address] CT HEAD OR BRAIN W/O CONTRAS Ton 05-22-2021 CT HEAD OR BRAIN W/O CONTRAST ORIGINAL INDICATION:Pain TECHNIQUE: CT head without contrast performed using dose optimization techniques including automated exposure control. COMPARISON: None available FINDINGS: No evidence of acute transcortical infarct, intracranial hemorrhage, or mass effect. No hydrocephalus or extra-axial collection. The visualized orbital contents are normal. The paranasal sinuses, mastoid air cells, and soft tissues and osseous structures are normal. IMPRESSION: No acute intracranial process. Interpreted by: Galdino Hollingsworth MD Preliminary Report By: Galdino Hollingsworth MD Electronically signed By Galdino Hollingsworth MD Dictated Date: 05/22/2021 10:17:37 AM Prelim Date: 05/22/2021 10:20:42 AM Sign Date: 05/22/2021 10:20:42 AM Ordering Provider: CHILO Acosta [facility] ([place]) LABORATORYOrdered By: Madhavi Andrews on 05-22-2021 Basophil, Absolute 0.00 103/mcL Invalid Interpretation Code 0.00 - 0.19 10^3/mcL AO Auto Heme SS Basophils/100 WBC (Bld) 0.7 % Invalid Interpretation Code 0.0 - 2.5 % AO Auto Heme SS Eosinophil, Absolute 0.10 103/mcL Invalid Interpretation Code 0.00 - 0.40 10^3/mcL AO Auto Heme SS Eosinophils/100 WBC (Bld) 1.4 % Invalid Interpretation Code 0.0 - 7.0 % AO Auto Heme SS Erythrocyte distribution width (RBC) [Ratio] 13.7 % Invalid Interpretation Code 11.5 - 14.5 % AO Auto Heme SS Hematocrit (Bld) [Volume fraction] 38.5 % Invalid Interpretation Code 42.0 - 52.0 % AO Auto Heme SS Hemoglobin (Bld) [Mass/Vol] 13.0 G/dL Invalid Interpretation Code 14.0 - 18.0 G/dL AO Auto Heme SS Lymphocyte, Absolute 1.20 103/mcL Invalid Interpretation Code 0.77 - 3.85 10^3/mcL AO Auto Heme SS Lymphocytes/100 WBC (Bld) 22.7 % Invalid Interpretation Code 10.0 - 50.0 % AO Auto Heme SS MCH (RBC) [Entitic mass] 29.4 pg Invalid Interpretation Code 27.0 - 31.2 pg AO Auto Heme SS MCHC (RBC) [Mass/Vol] 33.9 G/dL Invalid Interpretation Code 31.8 - 35.4 G/dL AO Auto Heme SS MCV (RBC) [Entitic vol] 86.8 fL Invalid Interpretation Code 80.0 - 94.0 fL AO Auto Heme SS Monocyte, Absolute 0.30 103/mcL Invalid Interpretation Code 0.15 - 1.00 10^3/mcL AO Auto Heme SS Monocytes/100 WBC (Bld) 6.4 % Invalid Interpretation Code 1.7 - 13.0 % AO Auto Heme SS Neutrophil, Absolute 3.70 103/mcL Invalid Interpretation Code 2.85 - 6.16 10^3/mcL AO Auto Heme SS Neutrophils/100 WBC (Bld) 68.8 % Invalid Interpretation Code 37.0 - 80.0 % AO Auto Heme SS Platelet mean volume (Bld) [Entitic vol] 9.0 fL Invalid Interpretation Code 7.4 - 10.4 fL AO Auto Heme SS Platelets (Bld) [#/Vol] 245 103/mcL Invalid Interpretation Code 130 - 400 10^3/mcL AO Auto Heme SS RBC (Bld) [#/Vol] 4.43 106/mcL Invalid Interpretation Code 4.04 - 6.13 10^6/mcL AO Auto Heme SS WBC (Bld) [#/Vol] 5.40 103/mcL Invalid Interpretation Code 4.60 - 10.80 10^3/mcL AO Auto Heme SS LABORATORYOrdered By: Madhavi Travis on 05-22-2021 Calcium [Mass/Vol] 9.1 mg/dL Invalid Interpretation Code 8.4 - 10.2 mg/dL AO ADM SS Chloride [Moles/Vol] 103 mmol/L Invalid Interpretation Code 98 - 107 mmol/L AO ADM SS CO2 [Moles/Vol] 26 mmol/L Invalid Interpretation Code 22 - 29 mmol/L AO ADM SS Creatinine [Mass/Vol] 1.23 mg/dL Invalid Interpretation Code 0.70 - 1.30 mg/dL AO ADM SS Electrolyte Balance 10.0 mEq/L Invalid Interpretation Code 4.0 - 15.0 mEq/L AO ADM SS Glucose [Mass/Vol] 113 mg/dL Invalid Interpretation Code 70 - 105 mg/dL AO ADM SS Potassium [Moles/Vol] 5.1 mmol/L Invalid Interpretation Code 3.5 - 5.1 mmol/L AO ADM SS Sodium [Moles/Vol] 139 mmol/L Invalid Interpretation Code 136 - 145 mmol/L AO ADM SS Urea nitrogen [Mass/Vol] 21 mg/dL Invalid Interpretation Code 7 - 18 mg/dL AO ADM SS Urea nitrogen/Creatinine [Mass ratio] 17 ratio Invalid Interpretation Code 7 - 27 ratio AO ADM SS LABORATORYOrdered By: SYSTEM SYSTEM on 05-22-2021 GFR 79 ml/min/1.73sqm Invalid Interpretation Code AO Chemistry S GFR Non- 65 ml/min/1.73sqm Inval id Interpretation Code AO Chemistry S No Panel Informationon 04-13 Thyroid Stimulating Hormone (TSH) 2.67 uIU/mL 0.358-3.74 [facility] Work Phone: .Auto Diffon 04-09-2021 Basophil, Absolute 0.00 10 3/mcL Normal 0.00-0.19 [facility] ([place]) Comment on above: Performed By: #### B MP, TROPHS, PBNP, ANEU, ADIFF, CBC, GFR #### [address] [address] Basophils/100 WBC (Bld) 0.4 % Normal 0.0-2.5 [facility] ([place]) Comment on above: Performed By: #### B MP, TROPHS, PBNP, ANEU, ADIFF, CBC, GFR #### [address] [address] Eosinophil, Absolute 0.00 10 3/mcL Normal 0.00-0.40 [facility] ([place]) Comment on above: Performed By: #### B MP, TROPHS, PBNP, ANEU, ADIFF, CBC, GFR #### [address] [address] Eosinophils/100 WBC (Bld) 0.4 % Normal 0.0-7.0 [facility] ([place]) Comment on above: Performed By: #### B MP, TROPHS, PBNP, ANEU, ADIFF, CBC, GFR #### [address] [address] Lymphocyte, Absolute 1.20 10 3/mcL Normal 0.77-3.85 [facility] ([place]) Comment on above: Performed By: #### B MP, TROPHS, PBNP, ANEU, ADIFF, CBC, GFR #### [address] [address] Lymphocytes/100 WBC (Bld) 14.5 % Normal 10.0-50.0 [facility] ([place]) Comment on above: Performed By: #### B MP, TROPHS, PBNP, ANEU, ADIFF, CBC, GFR #### [address] [address] Monocyte, Absolute 0.40 10 3/mcL Normal 0.15-1.00 [facility] ([place]) Comment on above: Performed By: #### B MP, TROPHS, PBNP, ANEU, ADIFF, CBC, GFR #### [address] [address] Monocytes/100 WBC (Bld) 5.1 % Normal 1.7-13.0 [facility] ([place]) Comment on above: Performed By: #### B MP, TROPHS, PBNP, ANEU, ADIFF, CBC, GFR #### [address] [address] Neutrophils/100 WBC (Bld) 79.6 % Normal 37.0-80.0 [facility] ([place]) Comment on above: Performed By: #### B MP, TROPHS, PBNP, ANEU, ADIFF, CBC, GFR #### [address] [address] .GFRon 04-09-2021 GFR 79 ml/min/1.73sqm Normal [facility] ([place]) Comment on above: Result Comment: GFR Population mean for , Non- Americans Ages 20-29 = 116 mL/min/1.73 sq.m. Ages 30-39 = 107 mL/min/1.73 sq.m. Ages 40-49 = 99 mL/min/1.73 sq.m. Ages 50-59 = 93 mL/min/1.73 sq.m. Ages 60-69 = 85 mL/min/1.73 sq.m. Ages 70+ = 75 mL/min/1.73 sq.m. Chronic Kidney Disease: Less than 60 mL/min/1.73 square meters End Stage Renal Disease: Less than 15 mL/min/1.73 square meters Performed By: #### B MP, TROPHS, PBNP, ANEU, ADIFF, CBC, GFR #### [address] [address] GFR Non- 65 ml/min/1.73sqm Normal [facility] ([place]) Comment on above: Result Comment: GFR Population mean for , Non- Americans Ages 20-29 = 116 mL/min/1.73 sq.m. Ages 30-39 = 107 mL/min/1.73 sq.m. Ages 40-49 = 99 mL/min/1.73 sq.m. Ages 50-59 = 93 mL/min/1.73 sq.m. Ages 60-69 = 85 mL/min/1.73 sq.m. Ages 70+ = 75 mL/min/1.73 sq.m. Chronic Kidney Disease: Less than 60 mL/min/1.73 square meters End Stage Renal Disease: Less than 15 mL/min/1.73 square meters Performed By: #### B MP, TROPHS, PBNP, ANEU, ADIFF, CBC, GFR #### [address] [address] .NEUABSon 04-09-2021 Neutrophil, Absolute 6.50 10 3/mcL High 2.85-6.16 [facility] ([place]) Comment on above: Performed By: #### B MP, TROPHS, PBNP, ANEU, ADIFF, CBC, GFR #### [address] [address] BMPon 04-09-2021 BUN/Creatinine Ratio 12 ratio Normal 7-27 [facility] ([place]) Comment on above: Performed By: #### B MP, TROPHS, PBNP, ANEU, ADIFF, CBC, GFR #### [address] [address] Calcium [Mass/Vol] 9.2 mg/dL Normal 8.4-10.2 [facility] ([place]) Comment on above: Performed By: #### B MP, TROPHS, PBNP, ANEU, ADIFF, CBC, GFR #### [address] [address] Chloride [Moles/Vol] 104 mmol/L Normal 98-107 [facility] ([place]) Comment on above: Performed By: #### B MP, TROPHS, PBNP, ANEU, ADIFF, CBC, GFR #### [address] [address] CO2 [Moles/Vol] 24 mmol/L Normal 22-29 [facility] ([place]) Comment on above: Performed By: #### B MP, TROPHS, PBNP, ANEU, ADIFF, CBC, GFR #### [address] [address] Electrolyte Balance 14.0 mEq/L Normal 4.0-15.0 [facility] ([place]) Comment on above: Performed By: #### B MP, TROPHS, PBNP, ANEU, ADIFF, CBC, GFR #### [address] [address] Glucose [Mass/Vol] 117 mg/dL High 70-105 [facility] ([place]) Comment on above: Performed By: #### B MP, TROPHS, PBNP, ANEU, ADIFF, CBC, GFR #### [address] [address] Potassium [Moles/Vol] 5.0 mmol/L Normal 3.5-5.1 [facility] ([place]) Comment on above: Performed By: #### B MP, TROPHS, PBNP, ANEU, ADIFF, CBC, GFR #### [address] [address] Sodium [Moles/Vol] 142 mmol/L Normal 136-145 [facility] ([place]) Comment on above: Performed By: #### B MP, TROPHS, PBNP, ANEU, ADIFF, CBC, GFR #### [address] [address] Urea nitrogen [Mass/Vol] 15 mg/dL Normal 7-18 [facility] ([place]) Comment on above: Performed By: #### B MP, TROPHS, PBNP, ANEU, ADIFF, CBC, GFR #### [place] [address] Creatinine [Mass/Vol] 1.22 mg/dL Normal 0.70-1.30 [facility] ([place]) Comment on above: Performed By: #### B MP, TROPHS, PBNP, ANEU, ADIFF, CBC, GFR #### [address] [address] CBCon 04-09-2021 Erythrocyte distribution width (RBC) [Ratio] 14.1 % Normal 11.5-14.5 [facility] ([place]) Comment on above: Performed By: #### B MP, TROPHS, PBNP, ANEU, ADIFF, CBC, GFR #### [address] [address] Hematocrit (Bld) [Volume fraction] 41.1 % Low 42.0-52.0 [facility] ([place]) Comment on above: Performed By: #### B MP, TROPHS, PBNP, ANEU, ADIFF, CBC, GFR #### [address] [address] Hgb 13.9 G/dL Low 14.0-18.0 [facility] ([place]) Comment on above: Performed By: #### B MP, TROPHS, PBNP, ANEU, ADIFF, CBC, GFR #### [address] [address] MCH (RBC) [Entitic mass] 29.1 pg Normal 27.0-31.2 [facility] ([place]) Comment on above: Performed By: #### B MP, TROPHS, PBNP, ANEU, ADIFF, CBC, GFR #### [address] [address] MCHC 33.8 G/dL Normal 31.8-35.4 [facility] ([place]) Comment on above: Performed By: #### B MP, TROPHS, PBNP, ANEU, ADIFF, CBC, GFR #### [address] [address] MCV (RBC) [Entitic vol] 86.1 fL Normal 80.0-94.0 [facility] ([place]) Comment on above: Performed By: #### B MP, TROPHS, PBNP, ANEU, ADIFF, CBC, GFR #### [address] [address] Platelet 241 10 3/mcL Normal 130-400 [facility] ([place]) Comment on above: Performed By: #### B MP, TROPHS, PBNP, ANEU, ADIFF, CBC, GFR #### [address] [address] Platelet mean volume (Bld) [Entitic vol] 8.8 fL Normal 7.4-10.4 [facility] ([place]) Comment on above: Performed By: #### B MP, TROPHS, PBNP, ANEU, ADIFF, CBC, GFR #### [address] [address] RBC 4.77 10 6/mcL Normal 4.04-6.13 [facility] ([place]) Comment on above: Performed By: #### B MP, TROPHS, PBNP, ANEU, ADIFF, CBC, GFR #### [address] [address] WBC 8.10 10 3/mcL Normal 4.60-10.80 [facility] ([place]) Comment on above: Performed By: #### B MP, TROPHS, PBNP, ANEU, ADIFF, CBC, GFR #### [address] [address] [address] ANGIOGRAPHY CHEST W/CONTR Jd 04-09-2021 CT ANGIOGRAPHY CHEST W/CONTRAST ORIGINAL HISTORY: Chest pain COMPARISON: 18 September 2018 TECHNIQUE: CT angiogram of the chest following uncomplicated administration of intravenous contrast with 3D post-acquisition processing and with results displayed in source images, sagittal and coronal reconstructions, and volume rendered images. This exam was performed according to our departmental dose optimization program, and includes the following measures where applicable: automated exposure control, adjustment of the mAs and/or kVp according to patient size and/or exam, and an iterative reconstruction algorithm. FINDINGS: The study is of poor to fair technical quality. Study is limited by poor contrast timing, by motion and by low CT dose with poor signal to noise ratio. No filling defects are seen in the main pulmonary artery or its major branches. The lungs are clear. Chest wall structures are unremarkable. IMPRESSION: Somewhat limited examination, otherwise unremarkable. Interpreted by: Quintin Bejarano MD Preliminary Report By: Quintin Bejarano MD Electronically signed By Quintin Bejarano MD Dictated Date: 04/09/2021 1:49:28 PM Prelim Date: 04/09/2021 1:51:32 PM Sign Date: 04/09/2021 1:51:32 PM Ordering Provider: BRADY PASCAL [facility] ([place]) LABORATORYOrdered By: Gretta Celestin on 04-09-2021 Basophil, Absolute 0.00 103/mcL Invalid Interpretation Code 0.00 - 0.19 10^3/mcL AO Auto Heme SS Basophils/100 WBC (Bld) 0.4 % Invalid Interpretation Code 0.0 - 2.5 % AO Auto Heme SS Eosinophil, Absolute 0.00 103/mcL Invalid Interpretation Code 0.00 - 0.40 10^3/mcL AO Auto Heme SS Eosinophils/100 WBC (Bld) 0.4 % Invalid Interpretation Code 0.0 - 7.0 % AO Auto Heme SS Erythrocyte distribution width (RBC) [Ratio] 14.1 % Invalid Interpretation Code 11.5 - 14.5 % AO Auto Heme SS Hematocrit (Bld) [Volume fraction] 41.1 % Invalid Interpretation Code 42.0 - 52.0 % AO Auto Heme SS Hemoglobin (Bld) [Mass/Vol] 13.9 G/dL Invalid Interpretation Code 14.0 - 18.0 G/dL AO Auto Heme SS Lymphocyte, Absolute 1.20 103/mcL Invalid Interpretation Code 0.77 - 3.85 10^3/mcL AO Auto Heme SS Lymphocytes/100 WBC (Bld) 14.5 % Invalid Interpretation Code 10.0 - 50.0 % AO Auto Heme SS MCH (RBC) [Entitic mass] 29.1 pg Invalid Interpretation Code 27.0 - 31.2 pg AO Auto Heme SS MCHC (RBC) [Mass/Vol] 33.8 G/dL Invalid Interpretation Code 31.8 - 35.4 G/dL AO Auto Heme SS MCV (RBC) [Entitic vol] 86.1 fL Invalid Interpretation Code 80.0 - 94.0 fL AO Auto Heme SS Monocyte, Absolute 0.40 103/mcL Invalid Interpretation Code 0.15 - 1.00 10^3/mcL AO Auto Heme SS Monocytes/100 WBC (Bld) 5.1 % Invalid Interpretation Code 1.7 - 13.0 % AO Auto Heme SS Neutrophil, Absolute 6.50 103/mcL Invalid Interpretation Code 2.85 - 6.16 10^3/mcL AO Auto Heme SS Neutrophils/100 WBC (Bld) 79.6 % Invalid Interpretation Code 37.0 - 80.0 % AO Auto Heme SS Platelet mean volume (Bld) [Entitic vol] 8.8 fL Invalid Interpretation Code 7.4 - 10.4 fL AO Auto Heme SS Platelets (Bld) [#/Vol] 241 103/mcL Invalid Interpretation Code 130 - 400 10^3/mcL AO Auto Heme SS RBC (Bld) [#/Vol] 4.77 106/mcL Invalid Interpretation Code 4.04 - 6.13 10^6/mcL AO Auto Heme SS WBC (Bld) [#/Vol] 8.10 103/mcL Invalid Interpretation Code 4.60 - 10.80 10^3/mcL AO Auto Heme SS LABORATORYOrdered By: Tessy French on 04-09-2021 Calcium [Mass/Vol] 9.2 mg/dL Invalid Interpretation Code 8.4 - 10.2 mg/dL AO ADM SS Chloride [Moles/Vol] 104 mmol/L Invalid Interpretation Code 98 - 107 mmol/L AO ADM SS CO2 [Moles/Vol] 24 mmol/L Invalid Interpretation Code 22 - 29 mmol/L AO ADM SS Creatinine [Mass/Vol] 1.22 mg/dL Invalid Interpretation Code 0.70 - 1.30 mg/dL AO ADM SS Electrolyte Balance 14.0 mEq/L Invalid Interpretation Code 4.0 - 15.0 mEq/L AO ADM SS Glucose [Mass/Vol] 117 mg/dL Invalid Interpretation Code 70 - 105 mg/dL AO ADM SS Natriuretic peptide.B prohormone N-Terminal [Mass/Vol] 57 pg/mL Invalid Interpretation Code 0 - 125 pg/mL AO ADM SS Potassium [Moles/Vol] 5.0 mmol/L Invalid Interpretation Code 3.5 - 5.1 mmol/L AO ADM SS Sodium [Moles/Vol] 142 mmol/L Invalid Interpretation Code 136 - 145 mmol/L AO ADM SS Troponin I.cardiac DL <= 0.01 ng/mL [Mass/Vol] 7.3 ng/L Invalid Interpretation Code 0.0 - 76.2 ng/L AO ADM SS Urea nitrogen [Mass/Vol] 15 mg/dL Invalid Interpretation Code 7 - 18 mg/dL AO ADM SS Urea nitrogen/Creatinine [Mass ratio] 12 ratio Invalid Interpretation Code 7 - 27 ratio AO ADM SS LABORATORYOrdered By: SYSTEM SYSTEM on 04-09-2021 GFR 79 ml/min/1.73sqm Invalid Interpretation Code AO Chemistry S GFR Non- 65 ml/min/1.73sqm Inval id Interpretation Code AO Chemistry S PBNPon 04-09-2021 Natriuretic peptide B (Bld) [Mass/Vol] 57 pg/mL Normal 0-125 [facility] ([place]) Comment on above: Result Comment: NT-p roBNP results of less than 300 pg/mL effectively rules out acute congestive heart failure with 99% negative predictive value. Performed By: #### B MP, TROPHS, PBNP, ANEU, ADIFF, CBC, GFR #### [address] [address] TROPHSon 04-09-2021 Troponin I High Sensitivity 7.3 ng/L Normal 0.0-76.2 [facility] ([place]) Comment on above: Performed By: #### B MP, TROPHS, PBNP, ANEU, ADIFF, CBC, GFR #### [address] [address] CBC + DIFFon 10-08-2018 Basophils (Bld) [#/Vol] 0.00 x10EE3/UL Normal 0.00 - 0 .10 [facility] Comment on above: Performed By: #### 2 18965 #### [facility],[address] [place] [address] Basophils/100 WBC (Bld) 0.7 % Normal 0.0 - 2.0 [facility] Comment on above: Performed By: #### 2 15262 #### [facility],[address] [place] [address] CBC + DIFF Normal [facility] Comment on above: Result Comment: CBC- COMPLETE BLOOD COUNT Performed By: #### 2 37482 #### [facility],[address] [place], [place] [address] Eosinophils (Bld) [#/Vol] 0.00 x10EE3/UL Normal 0.00 - 0.50 [facility] Comment on above: Performed By: #### 2 11152 #### [facility],[address] [place] [address] Eosinophils/100 WBC (Bld) 0.6 % Normal 0.0 - 7.0 [facility] Comment on above: Performed By: #### 2 64614 #### [facility],[address] [place] [address] Erythrocyte distribution width (RBC) [Ratio] 13.4 % Normal 12.0 - 15.6 [facility] Comment on above: Performed By: #### 2 84321 #### [facility],[address] [place] [address] Hematocrit (Bld) [Volume fraction] 38.6 % Low 40.0 - 52.0 [facility] Comment on above: Performed By: #### 2 55824 #### [facility],[address] [place] [address] Hemoglobin (Bld) [Mass/Vol] 13.5 g/dL Normal 13.0 - 17.5 [facility] Comment on above: Performed By: #### 2 51292 #### [facility],[address] [place] [address] Lymphocytes (Bld) [#/Vol] 1.00 x10EE3/UL Normal 0.80 - 2.80 [facility] Comment on above: Performed By: #### 2 60609 #### [facility],[address] [place] [address] Lymphocytes/100 WBC (Bld) 15.0 % Low 20.0 - 45.0 [facility] Comment on above: Performed By: #### 2 83856 #### [facility],[address] [place] [address] MANUAL DIFF N/A Normal [facility] Comment on above: Performed By: #### 2 84795 #### [facility],[address] [place] [address] MCH (RBC) [Entitic mass] 31 pg Normal 27 - 33 [facility] Comment on above: Performed By: #### 2 97579 #### [facility],[address] [place], [place] [address] MCHC (RBC) [Mass/Vol] 35 X10 3 Normal 32 - 36 [facility] Comment on above: Performed By: #### 2 12540 #### [facility],[address] [place] [address] MCV (RBC) [Entitic vol] 87 fL Normal 81 - 98 [facility] Comment on above: Performed By: #### 2 63400 #### [facility],[address] [place] [address] Monocytes (Bld) [#/Vol] 0.40 x10EE3/UL Normal 0.20 - 1 .00 [facility] Comment on above: Performed By: #### 2 68217 #### [facility],[address] [place] [address] MONOS % 6.1 % Normal 0.0 - 10.0 [facility] Comment on above: Performed By: #### 2 94968 #### [facility],[address] [place] [address] Morphology Justo (Bld) [Interp] N/A Normal [facility] Comment on above: Performed By: #### 2 58125 #### [facility],[address] [place] [address] Neutrophils (Bld) [#/Vol] 5.40 x10EE3/UL Normal 1.50 - 7.10 [facility] Comment on above: Performed By: #### 2 09802 #### [facility],[address] [place] [address] Neutrophils/100 WBC (Bld) 77.6 % High 46.0 - 76.0 [facility] Comment on above: Performed By: #### 2 54952 #### [facility],[address] [place] [address] Platelet mean volume (Bld) [Entitic vol] 8.3 fL Normal 6.4 - 10.5 [facility] Comment on above: Result Comment: AUTO MATED DIFFERENTIAL Performed By: #### 2 38613 #### [facility],[address] [place] [address] Platelets (Bld) [#/Vol] 232 x10EE3/UL Normal 150 - 450 [facility] Comment on above: Performed By: #### 2 45235 #### [facility],[address] [place] [address] RBC (Bld) [#/Vol] 4.42 x 10EE6/UL Low 4.50 - 6.00 [facility] Comment on above: Performed By: #### 2 72811 #### [facility],[address] [place] [address] WBC (Bld) [#/Vol] 7.0 x 10EE3/UL Normal 4.5 - 10.8 [facility] Comment on above: Performed By: #### 2 10965 #### [facility],[address] [place] [address] CMP with eGFRon 10-08-2018 Age - Reported 38 years Normal [facility] Comment on above: Performed By: #### 2 02753 #### [facility],[address] [place] [address] Albumin [Mass/Vol] 4.4 g/dL Normal 3.4 - 4.8 [facility] Comment on above: Performed By: #### 2 37203 #### [facility],[address] [place] [address] Albumin/Globulin [Mass ratio] 1.5 {ratio} Normal 0.9 - 1.6 [facility] Comment on above: Performed By: #### 2 84107 #### [facility],[address] [place], [place] [id number] ALK PHOS 75 U/L Normal 38 - 126 [facility] Comment on above: Performed By: #### 2 64726 #### [facility],[address] [place], [place] [address] ALT/SGPT 18 U/L Normal 10 - 40 [facility] Comment on above: Performed By: #### 2 27734 #### [facility],[address] [place] [address] Anion gap [Moles/Vol] 13 mmol/L Normal 10 - 20 [facility] Comment on above: Performed By: #### 2 61177 #### [facility],[address] [place], [place] [id number] AST/SGOT 18 U/L Normal 13 - 39 [facility] Comment on above: Performed By: #### 2 38266 #### [facility],[address] [place] [address] B/C RATIO 13 ratio Normal 0 - 30 [facility] Comment on above: Performed By: #### 2 73452 #### [facility],[address] [place] [address] Bilirubin [Mass/Vol] 0.3 mg/dL Normal 0.0 - 1.5 [facility] Comment on above: Performed By: #### 2 66985 #### [facility],[address] [place] [address] Calcium [Mass/Vol] 9.4 mg/dL Normal 8.6 - 10.2 [facility] Comment on above: Performed By: #### 2 10313 #### [facility],[address] [place] [address] Chloride [Moles/Vol] 102 mmol/L Normal 98 - 107 [facility] Comment on above: Performed By: #### 2 87232 #### [facility],[address] [place] [address] CO2 [Moles/Vol] 25.8 mmol/L Normal 21.0 - 31.0 [facility] Comment on above: Performed By: #### 2 19984 #### [facility],[address] [place] [address] Creatinine [Mass/Vol] 1.0 mg/dL Normal 0.7 - 1.3 [facility] Comment on above: Performed By: #### 2 81487 #### [facility],[address] [place] [address] GFR/1.73 sq M predicted among non-blacks MDRD (S/P/Bld) [Vol rate/Area] Normal [facility] Comment on above: Result Comment: COMP REHENSIVE METABOLIC PANEL Performed By: #### 2 11041 #### [facility],[address] [place] [address] GFR/1.73 sq M predicted among non-blacks MDRD (S/P/Bld) [Vol rate/Area] mL/min/{1.73_m2} Normal 60 - 999 [facility] Comment on above: Performed By: #### 2 64603 #### [facility],[address] [place] [address] Result Comment: ACCO RDING TO THE NATIONAL KIDNEY DISEASE EDUCATION PROGRAM(NKDE), A NORMAL eGFR IS A VALUE GREATER THAN OR EQUAL TO 60 ML/MIN/1.73 SQ METERS. CHRONIC KIDNEY DISEASE: <60mL/MIN/1.73 SQ METERS KIDNEY FAILURE: <15mL/MIN/1.73 SQ METERS THIS TEST SHOULD ONLY BE USED FOR PATIENTS 18 YEARS OF AGE AND OLDER. Globulin (S) [Mass/Vol] 3.0 g/dL Normal 1.5 - 3.8 [facility] Comment on above: Performed By: #### 2 19944 #### [facility],[address] [place] [address] Glucose [Mass/Vol] 118 mg/dL High 74 - 106 [facility] Comment on above: Performed By: #### 2 96697 #### [facility],[address] [place] [address] Potassium [Moles/Vol] 3.9 mmol/L Normal 3.5 - 5.1 [facility] Comment on above: Performed By: #### 2 38169 #### [facility],[address] [place] [address] Protein [Mass/Vol] 7.4 g/dL Normal 6.4 - 8.3 [facility] Comment on above: Performed By: #### 2 44460 #### [facility],[address] [place] [address] Sodium [Moles/Vol] 137 mmol/L Normal 136 - 145 [facility] Comment on above: Performed By: #### 2 70589 #### [facility],[address] [place] [address] Urea nitrogen [Mass/Vol] 13 mg/dL Normal 6 - 20 [facility] Comment on above: Performed By: #### 2 99016 #### [facility],[address] [place] [address] EMERGENCY REPORTon 9 EMERGENCY REPORT [facility] EMERGENCY ROOM REPORT NAME ACCOUNT SEX AGE ADMIT DISCHARGE PT MED. RECORD# NUMBER DATE DATE TYPE ALLISON [id number] Vlad 38 10/08/18 10/08/18 3 LEANNE [place]ov[place] [address] ROOM: ER DATE OF : 1980 DICTATING PHYSICIAN: Zheng Langston CHIEF COMPLAINT: Redness, swelling and tenderness to the leg. HISTORY OF PRESENT ILLNESS: The patient noticed yesterday afternoon some redness and some soreness to the left lower leg. This morning, it is significantly more reddened, tender and swollen. He has a little bit of soreness and swelling to his right leg, but the left leg is red and tender. He has not had a documented fever. He did feel a little nauseated yesterday and felt more tired than usual. He is minimally nauseated but no vomiting. He has had a previous episode of cellulitis to his leg in the past. No recent injury or trauma. PAST MEDICAL HISTORY: Negative for significant chronic medical problems. He does have a history of anxiety and depression. 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 PAST SURGICAL HISTORY: No previous surgeries. ALLERGIES: He is allergic to penicillin possibly. SOCIAL HISTORY: He lives at home. He does not smoke or drink alcohol. He is not presently employed. PHYSICAL EXAMINATION: This is a 38-year-old, mildly obese male who is alert, appropriate and pleasant. He does not appear toxic. Skin is warm and dry. Vital signs: Temperature is 98.2, pulse 116, respirations 16, and blood pressure 160/108. ENT examination is negative. Neck is supple. Lungs are clear. Cardiac examination is a regular, slightly tachycardic rate. Abdomen is soft and nontender. He moves all extremities appropriately without any focal weaknesses. Moderate redness with a confluent rash to the left lower extremity. There is significant warmth and noticeable redness to the posterior aspect of the lower leg. There is basically a superficial scab over the anterolateral aspect of the leg. There is no purulent drainage. No pustules, vesicles or ulcers seen. No appreciable redness or tenderness to the foot or ankle. No tenderness at the knee or upper leg. He has minimal swelling to the right lower extremity at the lower leg and ankle but no redness or tenderness. Normal neurovascular examination. DIAGNOSTIC DATA: Laboratory studies obtained showed a CBC that showed a white Page 1 of 2 [facility] Emergency Room Report count of 7000 with 77% neutrophils. Hemoglobin and hematocrit were normal. Lactate was normal. CMP showed a glucose of 118, otherwise normal. EMERGENCY DEPARTMENT COURSE AND TREATMENT: An IV of normal saline was placed. Clinically, this certainly appears to be a cellulitis. He was given a dose of Unasyn and doxycycline IV, which he tolerated well. I feel that outpatient management is appropriate. He will be given a prescription for doxycycline 100 mg b.i.d. for 10 days. He is to follow up with his family doctor in 2 to 3 days if no better, returning if symptoms worsen such as increasing pain, fever, chills, nausea, vomiting, etc. Otherwise, follow up with his family doctor. DIAGNOSIS: Left lower leg cellulitis. Dictated By: Zheng Langston MD 10/08/18 10:16 JOB #: [id number] Transcribed By: pema 10/08/18 15:23 Electronically signed by: JT Langston M.D. 10/08/18 19:18 Page 2 of 2 [facility] Emergency Room Report Normal [facility] LACTATEon 10-08-2018 Lactate [Moles/Vol] 10.9 mg/dL Normal 4.5 - 18.0 [facility] Comment on above: Performed By: #### 2 [id number] #### [facility],[address] [place] [address] EMERGENCY REPORTon 9 EMERGENCY REPORT [facility] EMERGENCY ROOM REPORT NAME ACCOUNT SEX AGE ADMIT DISCHARGE PT MED. RECORD# NUMBER DATE DATE TYPE ALLISON [id number] 04/17/18 04/17/18 3 LEANNE Small [id number] ROOM: ER DATE OF : 1980 DICTATING PHYSICIAN: Ronni Schwartz CHIEF COMPLAINT: Ankle pain. HISTORY OF PRESENT ILLNESS: The patient is a 37-year-old male who presents here with right ankle discomfort. He has had pain for the last 2 to 3 days. He does have a history of PE in the past, though he has currently been taking Eliquis and has not had any additional issues. He describes some aching and throbbing into the lateral aspect of his ankle. He did have a wound over his anterior tibia over the last couple of months that is now healed up. He describes an aching, throbbing discomfort, inflammation, and tenderness with palpation. No fevers, chills, chest pain, shortness of breath, or additional complaints. He is otherwise resting comfortably. He does not want anything for pain at this time. PHYSICAL EXAMINATION: On examination, he is alert and interactive. HEENT is currently normal. Heart is currently regular. It initially was slightly tachycardic. Lungs are clear and symmetric. Abdomen is soft and nontender. Extremities are warm and well perfused. He has tenderness to palpation over the lateral aspect of his ankle with cellulitis. There is no current wound defect. He has no calf discomfort. He has no evidence of DVT. His pain is very reproducible. It is warm and inflamed and very consistent with cellulitis, likely stemming from where this prior wound was. EMERGENCY DEPARTMENT COURSE AND TREATMENT: At this time, I am going to place him on Keflex as well as some Ultram for pain. His OARRS is currently negative. I did instruct him to return should his symptoms change or worsen. He understands. He is going to elevate the leg and follow up as an outpatient. DIAGNOSIS: Right ankle cellulitis. PLAN/DISPOSITION: We will discharge. Dictated By: Ronni Schwartz MD 04/17/18 12:40 JOB #: [id number] Transcribed By: pema 04/18/18 07:35 Electronically signed by: E-Sign: RONNI SCHWARTZ M.D. 04/29/18 07:22 Page 1 of 1 SD [facility] Emergency Room Report Normal [facility] EMERGENCY REPORTon 9 EMERGENCY REPORT [facility] EMERGENCY ROOM REPORT NAME ACCOUNT SEX AGE ADMIT DISCHARGE PT MED. RECORD# NUMBER DATE DATE TYPE ALLISON [id number] Vlad 37 02/24/18 3 LEANNE Small [id number] ROOM: ER DATE OF : 1980 DICTATING PHYSICIAN: Yves Thomas CHIEF COMPLAINT/HISTORY OF PRESENT ILLNESS: Patient came in complaining of shortness of breath. He stated he almost passed out. He has some chest discomfort when he takes a deep breath in. Really without any chest pain. It was more his heart racing. He does have a history of panic attacks, but he has not had one in 3 years and states it does not feel like this and he was concerned. He came with significant other. He said he blacked out with his dizziness, but did not black out. PAST MEDICAL HISTORY: Positive for depression and anxiety. PAST SURGICAL HISTORY: Denies. SOCIAL HISTORY: He does use tobacco. He occasionally drinks alcohol. His significant other said she suspects he may use drugs. She told the nurse this. REVIEW OF SYSTEMS: Ten systems reviewed and negative except as mentioned above. PHYSICAL EXAMINATION: He is an awake, alert, oriented male in no acute respiratory distress. He appeared anxious. He was afebrile. Pules 120, respirations 22, blood pressure 145/104, pulse oximetry 95% on room air. Head is normocephalic, atraumatic. Eyes: Pupils equal, round, active to light. Extraocular muscles intact. Nares are patent. Throat has adequate oral moisture. Uvula is midline. Neck supple. No petechiae or rash. Heart without murmur. S1 equals S2. No S3 or S4 appreciated. Lungs are clear to auscultation bilaterally. No rales, rhonchi or retractions. Abdomen: Soft, nontender, nondistended. Skin is warm and dry. He was tachycardic. DIAGNOSTIC DATA: His toxicology screen was positive for amphetamines. His cardiac markers were elevated. His initial troponin was 0.75. We repeated the troponin and it was even further elevated at 1.57. His D-dimer was also elevated at 1091. We got a CT. CT showed extensive blood clots, pulmonary emboli, extensive heavy burden of pulmonary emboli ____ noted in right pulmonary artery. Submental thrombi is seen in all lobes. He also has a right lung nodule. Patient's first EKG showed a rate of 114, incomplete right bundle branch clock. Second EKG showed 110 normal axis including right bundle branch block. EMERGENCY DEPARTMENT COURSE AND TREATMENT: Patient was heparinized Page 1 of 2 LEANNE COOPER S Emergency Room Report even prior to the CAT scan. He was placed on a Heparin drip. Dr. Campuzano will admit the patient. Critical care time 35 minutes excluding billable procedures. DIAGNOSES: 1. Multiple large pulmonary emboli, which are extensive. 2. Near syncope. 3. Elevated troponin. 4. Lung nodule. Dictated By: Yves Thomas DO 02/24/18 19:25 JOB #: [id number] Transcribed By: madiha 02/24/18 20:03 Electronically signed by: JT Thomas D.O. 02/25/18 09:10 Page 2 of 2 [facility] Emergency Room Report Normal [facility] EMERGENCY REPORT [facility] EMERGENCY ROOM REPORT NAME ACCOUNT SEX AGE ADMIT DISCHARGE PT MED. RECORD# NUMBER DATE DATE TYPE ALLISON [id number] Vlad 37 02/24/18 3 ELANNE Small [id number] ROOM: ER DATE OF : 1980 DICTATING PHYSICIAN: Yves Thomas CHIEF COMPLAINT/HISTORY OF PRESENT ILLNESS: Patient came in, complaining of shortness of breath. Said he almost passed out. He has some chest discomfort when he takes a deep breath in. Really not any chest pain. It is more his heart racing. He does have a history of panic attacks, but he has not had one in 3 years and states this does not feel like this and he was concerned. He is here with his significant other. He says he almost blacked out with his dizziness, but did not black out. PAST MEDICAL HISTORY: Positive for depression and anxiety. PAST SURGICAL HISTORY: Denies. SOCIAL HISTORY: He does use tobacco. He occasionally drinks alcohol. His significant other said she suspects he may use drugs. She told the nurse this. REVIEW OF SYSTEMS: Ten systems reviewed and negative except as mentioned above. PHYSICAL EXAMINATION: He is an awake, alert, oriented male in no acute respiratory distress. He appeared anxious. He was afebrile. Pulse 120, respirations 22, blood pressure 145/104, pulse oximetry 95% on room air. Head is normocephalic, atraumatic. Eyes: Pupils equal, round, active to light. Extraocular muscles intact. Nares are patent. Throat has adequate oral moisture. Uvula is midline. Neck supple. No petechiae or rash. Heart without murmur. S1 equals S2. No S3 or S4 appreciated. Lungs are clear to auscultation bilaterally. No rales, rhonchi or retractions. Abdomen: Soft, nontender, nondistended. Skin is warm and dry. He was tachycardic. DIAGNOSTIC DATA: His toxicology screen was positive for amphetamines. His cardiac markers were elevated. His initial troponin was 0.75. We repeated the troponin and it was even further elevated at 1.57. His D-dimer was also elevated at 1091. We will get a CT. The CT showed extensive blood clots, pulmonary emboli. Extensive heavy burden of pulmonary emboli and large thrombus noted in the right pulmonary artery, submental thrombi is seen in all lobes. He also has a right lung nodule. Patient's EKG, first EKG showed 114, incomplete right bundle branch block. Second EKG showed 110, normal axis including right bundle branch block. Page 1 of 2 ALLISON [facility] Small Emergency Room Report EMERGENCY DEPARTMENT COURSE AND TREATMENT: Patient was heparinized even prior to the CAT scan. He was placed on a Heparin drop. Dr. Campuzano will admit the patient. Critical care time 35 minutes excluding billable procedures. DIAGNOSES: 1. Multiple large pulmonary emboli, which are extensive. 2. Near syncope. 3. Elevated troponin. 4. Lung nodule. Dictated By: Yves Thomas DO 02/24/18 18:46 JOB #: [id number] Transcribed By: madiha 02/24/18 18:54 Electronically signed by: JT Thomas D.O. 02/25/18 09:08 Page 2 of 2 ALLISON LEANNE S Emergency Room Report Normal [facility] APTTon 02-24-2018 aPTT Coag (Bld) [Time] 28.7 s Normal 25.4 - 38.4 [facility] Comment on above: Performed By: #### 2 32610 #### [facility],[address] [place] [address] CBCon 02-24-2018 Basophils (Bld) [#/Vol] 0.00 x10EE3/UL Normal 0.00 - 0 .10 [facility] Comment on above: Performed By: #### 2 81793 #### [facility],[address] [place] [address] 67514 Basophils/100 WBC (Bld) 0.3 % Normal 0.0 - 2.0 [facility] Comment on above: Performed By: #### 2 63131 #### [facility],[address] [place] [address] 83127 CBC Normal [facility] Comment on above: Result Comment: CBC- COMPLETE BLOOD COUNT Performed By: #### 2 42491 #### [place] [address] Eosinophils (Bld) [#/Vol] 0.00 x10EE3/UL Normal 0.00 - 0.50 [facility] Comment on above: Performed By: #### 2 23195 #### [facility],[address] [place], [place] [id number] Eosinophils/100 WBC (Bld) 0.2 % Normal 0.0 - 7.0 [facility] Comment on above: Performed By: #### 2 23952 #### [place] [id number] Erythrocyte distribution width (RBC) [Ratio] 13.6 % Normal 12.0 - 15.6 [facility] Comment on above: Performed By: #### 2 88072 #### [place] [address] Hematocrit (Bld) [Volume fraction] 44.8 % Normal 40.0 - 52.0 [facility] Comment on above: Performed By: #### 2 19827 #### [facility],[address] [place] [address]34 Hemoglobin (Bld) [Mass/Vol] 14.9 g/dL Normal 13.0 - 17.5 [facility] Comment on above: Performed By: #### 2 71324 #### [facility],[address] [place], [place] [id number] Lymphocytes (Bld) [#/Vol] 0.70 x10EE3/UL Low 0.80 - 2.80 [facility] Comment on above: Performed By: #### 2 18585 #### [address] [address] Lymphocytes/100 WBC (Bld) 5.4 % Low 20.0 - 45.0 [facility] Comment on above: Performed By: #### 2 44370 #### [facility],[address] [place] [address]696 MANUAL DIFF N/A Normal [facility] Comment on above: Performed By: #### 2 60317 #### [facility],[address] [place] [address] 27558 MCH (RBC) [Entitic mass] 29 pg Normal 27 - 33 [facility] Comment on above: Performed By: #### 2 60596 #### [facility],[address] [place] [address]69 MCHC (RBC) [Mass/Vol] 33 X10 3 Normal 32 - 36 [facility] Comment on above: Performed By: #### 2 40414 #### [facility],[address] [place] [address] 37008 MCV (RBC) [Entitic vol] 87 fL Normal 81 - 98 [facility] Comment on above: Performed By: #### 2 72836 #### [facility],[address] [place] [address]3841 Monocytes (Bld) [#/Vol] 0.40 x10EE3/UL Normal 0.20 - 1 .00 [facility] Comment on above: Performed By: #### 2 28167 #### [facility],[address] [place] [address]27 MONOS % 3.3 % Normal 0.0 - 10.0 [facility] Comment on above: Performed By: #### 2 56374 #### [facility],[address] [place] [address] Morphology Justo (Bld) [Interp] N/A Normal [facility] Comment on above: Result Comment: {CD] Performed By: #### 2 44092 #### [facility],[address] [place] [address] 11421 Neutrophils (Bld) [#/Vol] 12.10 x10EE3/UL High 1.50 - 7.10 [facility] Comment on above: Performed By: #### 2 93281 #### [facility],[address] [place] [address] 36909 Neutrophils/100 WBC (Bld) 90.8 % High 46.0 - 76.0 [facility] Comment on above: Performed By: #### 2 16992 #### [facility],[address] [place] [address] 26250 Platelet mean volume (Bld) [Entitic vol] 8.6 fL Normal 6.4 - 10.5 [facility] Comment on above: Result Comment: AUTO MATED DIFFERENTIAL Performed By: #### 2 94622 #### [address] [address] Platelets (Bld) [#/Vol] 243 x10EE3/UL Normal 150 - 450 [facility] Comment on above: Performed By: #### 2 26324 #### [address] [address] RBC (Bld) [#/Vol] 5.17 x 10EE6/UL Normal 4.50 - 6.00 [facility] Comment on above: Performed By: #### 2 78660 #### [facility],[address] [place] [address] 59361 WBC (Bld) [#/Vol] 13.3 x 10EE3/UL High 4.5 - 10.8 [facility] Comment on above: Performed By: #### 2 64283 #### [facility],[address] [place] [address]186 CHEST 1 VIEWon 02-24-2018 CHEST 1 VIEW [place] [address] Patient: LEANNE COOPER Phone#: : 1980 Age: 37 Gender: M Pt. Type: ER Account: [id number] Location: [facility] Ordering: YVES THOMAS Exam Date: 02/24/2018/16:23 Family Phys: MESFIN RICKS Charge Code: [id number] Physician: [place] Order #: [id number] DLP Dose#: PROCEDURE: X-RAY CHEST 1 VIEW COMPARISON: None. INDICATIONS: Chest pain FINDINGS: LUNGS: Image obtained in apical lordotic position somewhat limiting the evaluation. No focal parenchymal abnormality. VASCULATURE: Normal. Unremarkable pulmonary vasculature. CARDIAC: Normal. No cardiac silhouette abnormality or cardiomegaly. MEDIASTINUM: Normal. No visible mass or adenopathy. PLEURA: Normal. No effusion or pleural thickening. BONES: Degenerative changes of the spine. OTHER: Monitoring leads project fossa thorax. CONCLUSION: No acute disease. Dictated by: Katina Smith MD on 02/24/2018 at 18:03 Approved by: Katina Smith MD on 02/24/2018 at 18:03 Normal [facility] CMP with eGFRon 02-24-2018 Age - Reported 37 years Normal [facility] Comment on above: Performed By: #### 2 19281 #### [facility],[address] [place] [address]9423 Albumin [Mass/Vol] 4.7 g/dL Normal 3.4 - 4.8 [facility] Comment on above: Performed By: #### 2 56116 #### [facility],[address] [place] [address] 45959 Albumin/Globulin [Mass ratio] 1.5 {ratio} Normal 0.9 - 1.6 [facility] Comment on above: Performed By: #### 2 95140 #### [facility],[address] [place] [address] 22662 ALK PHOS 96 U/L Normal 38 - 126 [facility] Comment on above: Performed By: #### 2 74482 #### [facility],[address] [place] [address] 19870 ALT/SGPT 20 U/L Normal 10 - 40 [facility] Comment on above: Performed By: #### 2 71580 #### [facility],[address] [place], [place] [address] Anion gap [Moles/Vol] 12 mmol/L Normal 10 - 20 [facility] Comment on above: Performed By: #### 2 23784 #### [facility],[address] [place] [address] 94754 AST/SGOT 26 U/L Normal 13 - 39 [facility] Comment on above: Performed By: #### 2 30934 #### [facility],[address] [place] [address] 21952 B/C RATIO 11 ratio Normal 0 - 30 [facility] Comment on above: Performed By: #### 2 32512 #### [facility],[address] [place] [address] 43816 Bilirubin [Mass/Vol] 0.4 mg/dL Normal 0.0 - 1.5 [facility] Comment on above: Performed By: #### 2 41436 #### [facility],[address] [place] [address] 76501 Calcium [Mass/Vol] 9.7 mg/dL Normal 8.6 - 10.2 [facility] Comment on above: Performed By: #### 2 42911 #### [facility],[address] [place] [address] 31133 Chloride [Moles/Vol] 102 mmol/L Normal 98 - 107 [facility] Comment on above: Performed By: #### 2 98858 #### [facility],[address] [place] [address] 61815 CO2 [Moles/Vol] 27.6 mmol/L Normal 21.0 - 31.0 [facility] Comment on above: Performed By: #### 2 26788 #### [facility],[address] [place] [address] 36414 Creatinine [Mass/Vol] 1.1 mg/dL Normal 0.7 - 1.3 [facility] Comment on above: Performed By: #### 2 79436 #### [facility],[address] [place] [address] 50997 GFR/1.73 sq M predicted among non-blacks MDRD (S/P/Bld) [Vol rate/Area] mL/min/{1.73_m2} Normal 60 - 999 [facility] Comment on above: Result Comment: ACCO RDING TO THE NATIONAL KIDNEY DISEASE EDUCATION PROGRAM(NKDE), A NORMAL eGFR IS A VALUE GREATER THAN OR EQUAL TO 60 ML/MIN/1.73 SQ METERS. CHRONIC KIDNEY DISEASE: <60mL/MIN/1.73 SQ METERS KIDNEY FAILURE: <15mL/MIN/1.73 SQ METERS THIS TEST SHOULD ONLY BE USED FOR PATIENTS 18 YEARS OF AGE AND OLDER. Performed By: #### 2 05630 #### [facility],[address] [place] [address]7310 GFR/1.73 sq M predicted among non-blacks MDRD (S/P/Bld) [Vol rate/Area] Normal [facility] Comment on above: Result Comment: COMP REHENSIVE METABOLIC PANEL Performed By: #### 2 59618 #### [facility],[address] [place] [address] 21609 Globulin (S) [Mass/Vol] 3.2 g/dL Normal 1.5 - 3.8 [facility] Comment on above: Performed By: #### 2 42094 #### [facility],[address] [place] [address] 40231 Glucose [Mass/Vol] 103 mg/dL Normal 74 - 106 [facility] Comment on above: Performed By: #### 2 78740 #### [facility],[address] [place] [address] 02433 Potassium [Moles/Vol] 4.5 mmol/L Normal 3.5 - 5.1 [facility] Comment on above: Performed By: #### 2 82627 #### [facility],[address] [place] [address] 03031 Protein [Mass/Vol] 7.9 g/dL Normal 6.4 - 8.3 [facility] Comment on above: Performed By: #### 2 90562 #### [facility],[address] [place] [address] 48114 Sodium [Moles/Vol] 137 mmol/L Normal 136 - 145 [facility] Comment on above: Performed By: #### 2 49642 #### [facility],[address] [place] [address] 65768 Urea nitrogen [Mass/Vol] 12 mg/dL Normal 6 - 20 [facility] Comment on above: Performed By: #### 2 84669 #### [facility],[address] [place] [address] CHEST (PE PROTOCOL)on CT CHEST (PE PROTOCOL) [place] [address] Patient: LEANNE COOPER Phone#: : 1980 Age: 37 Gender: M Pt. Type: ER Account: [id number] Location: [facility] Ordering: YVES THOMAS Exam Date: 02/24/2018/17:26 Family Phys: MESFIN RICKS Charge Code: [id number] Physician: [place] Order #: [id number] DLP Dose#: PROCEDURE: CT CHEST WITH CONTRAST FOR PE COMPARISON: None. INDICATIONS: Shortness of breath TECHNIQUE: After obtaining the patient's consent, CT images were obtained with non-ionic intravenous contrast material. Multi-planar images were created to optimize visualization of vascular anatomy with MPR/MIPS and 3D imaging. All CT scans at this facility use dose modulation, iterative reconstruction, and/or weight based dosing when appropriate to reduce radiation dose to as low as reasonably achievable. IV CONTRAST: Omnipaque 350,87ml TOTAL DOSE: 11.9 CTDIvol(mGy) FINDINGS: VASCULATURE: Bilateral heavy burden of pulmonary emboli. There is a large thrombus burden in the right pulmonary artery. Pulmonary emboli extending to the segmental pulmonary arteries in all lobes. AORTA: No aortic aneurysm. LUNGS: Right middle lobe pulmonary nodule measuring 0.5 cm, series 4 image 72. ODALIS: Normal. No mass or adenopathy. MEDIASTINUM: Normal. No mass or adenopathy. CARDIAC: There is evidence of right heart strain with enlargement of the right ventricle and narrowing of the left ventricle. PLEURA: Normal. No mass or effusion. CHEST WALL: Normal. No mass or axillary adenopathy. LIMITED ABDOMEN: Normal. Limited images of the upper abdomen are unremarkable. BONES: There are degenerative changes of the spine. OTHER: Negative. Continued Report - Page 2 of 2 Patient: LEANNE COOPER Phone#: : 1980 Age: 37 Gender: M Pt. Type: ER Account: [id number] Location: 2 Ordering: YVES THOMAS Exam Date: 02/24/2018/17:26 Family Phys: MESFIN RICKS Charge Code: [id number] Physician: [place] Order #: [id number] DLP Dose#: CONCLUSION: 1. Extensive bilateral heavy burden of pulmonary emboli. The largest thrombus noted in the right pulmonary artery. Segmental thrombi seen to all lobes. This report was communicated by telephone to Dr. Thomas at the dictation time shown below. 2. Right middle lobe and a nodule. According to Fleischner society criteria in a low risk patient no followup necessary. In a high risk patient optional followup CT in 12 months. Dictated by: Katina Smith MD on 02/24/2018 at 17:51 Approved by: Katina Smith MD on 02/24/2018 at 17:56 Normal [facility] D-DIMER, QUANTITATIVEon D-DIMER QUANT 1091 ng/ml High 0 - 230 [facility] Comment on above: Performed By: #### 2 20183 #### [facility],[address] [place], [place] [address] D-DIMER, QUANTITATIVE Normal [facility] Comment on above: Result Comment: AMBROSE T D-DIMER Performed By: #### 2 44681 #### [facility],[address] [place], [place] [id number] DRUG SCREEN URINE MEDICon Amphetamines Ql (U) Positive Normal [facility] Comment on above: Performed By: #### 2 [id number] #### [facility],[address] [facility] [address] B-DIAZEPINES Negative Normal [facility] Comment on above: Performed By: #### 2 [id number] #### [facility],[address] [facility] [address] BARBITURATES Negative Normal [facility] Comment on above: Performed By: #### 2 [id number] #### [facility],[address] [facility] [address] Cocaine Ql (U) Negative Normal [facility] Comment on above: Performed By: #### 2 [id number] #### [facility],1 [facility] [address] DRUG SCREEN URINE MEDIC Normal [facility] Comment on above: Result Comment: DRUG SCREEN - URINE Performed By: #### 2 35966 #### [facility],1 [facility] [address] Methadone Ql (U) Negative Normal [facility] Comment on above: Performed By: #### 2 28927 #### [facility],[address] [facility] [address] Opiates Ql (U) Negative Normal [facility] Comment on above: Performed By: #### 2 03951 #### [facility],[address] [place] [address] PCP Negative Normal [facility] Comment on above: Performed By: #### 2 [id number] #### [facility],[address] [place] [address] TCA Negative Normal [facility] Comment on above: Performed By: #### 2 62691 #### [facility],1 [facility] [address] THC Negative Normal [facility] Comment on above: Result Comment: RONAL ENTS RECEIVING PROTON PUMP INHIBITORS MAY DEMONSTRATE FALSE POSITIVE THC/CANNABINOID RESULTS. AN ALTERNATIVE CONFIRMATORY METHOD SHOULD BE CONSIDERED TO VERIFY POSITIVE RESULTS. Performed By: #### 2 [id number] #### [facility],[address] [place], [place] [address] PROTHROMBIN TIME AND INRon 0 02-24-2018 INR Coag (Bld) [Relative time] Normal [facility] Comment on above: Result Comment: PROT HROMBIN TIME AND INR Performed By: #### 2 [id number] #### [facility],[address] [place], [place] [address] INR Coag (PPP) [Relative time] 1.0 {INR} Normal 0.8 - 1.2 [facility] Comment on above: Result Comment: T HE HEMOSIL THROMBOPLASTIN REAGENT USED IN THE PROTHROMBIN TIME TEST INTERACTS WITH THE DRUG CUBICIN (DAPTOMYCIN) AND WILL RESULT IN FALSELY ELEVATED PT / INR RESULTS INR INTERPRETATION INR INDICATION PREVENTION AND TREATMENT OF THROMBOEMBOLISM ASSOCIATED WITH: 2.0 - 3.0 ATRIAL FIBRILLATION, BIOPROSTHETIC HEART VALVES, PULMONARY EMBOLISM, VENOUS THROMBOSIS, SYSTEMIC EMBOLISM POST MYOCARDIAL INFARCTION 2.5 - 3.5 MECHANICAL HEART VALVES Performed By: #### 2 [id number] #### [facility],[address] [place], [place] [address] PT-COUMADIN 11.3 sec Normal [facility] Comment on above: Performed By: #### 2 [id number] #### [place] [id number] TROPONINon 02-24-2018 Troponin I.cardiac [Mass/Vol] 2.01 ng/mL Critically high 0.00 - 0.05 [facility] Comment on above: Result Comment: { CA LLED TO WENDY/ { READ BACK BY WENDY/ Elevated troponin (above the 99th percentile) usually indicates myocardial ischemia. Results must be interpreted within the clinical setting. 1.Non-ischemic pathology can also cause elevated troponin levels (e.g., acute pulmonary embolism, myocarditis, pericarditis, heart failure, intracranial injury, rhabdomyolisis, sepsis, shock and renal insufficiency). 2.Approximately 1% of healthy adults have elevated troponin levels. 3.Analytical false positive results rarely occur(due to multiple interferences such as heterophile antibodies). Performed By: #### 2 [id number] #### [place] [id number] Troponin I.cardiac [Mass/Vol] 1.57 ng/mL Critically high 0.00 - 0.05 [facility] Comment on above: Result Comment: { CA LLED TO JESSICA@1652 / WKK { READ BACK BY JESSICA / RA@1652 Elevated troponin (above the 99th percentile) usually indicates myocardial ischemia. Results must be interpreted within the clinical setting. 1.Non-ischemic pathology can also cause elevated troponin levels (e.g., acute pulmonary embolism, myocarditis, pericarditis, heart failure, intracranial injury, rhabdomyolisis, sepsis, shock and renal insufficiency). 2.Approximately 1% of healthy adults have elevated troponin levels. 3.Analytical false positive results rarely occur(due to multiple interferences such as heterophile antibodies). Performed By: #### 2 98562 #### [facility],[address] [place] [address] Troponin I.cardiac [Mass/Vol] 0.75 ng/mL Critically high 0.00 - 0.05 [facility] Comment on above: Result Comment: { CA LLED TO DANIELLE@1611 / WKK { READ BACK BY DANIELLE / RA@1610 Elevated troponin (above the 99th percentile) usually indicates myocardial ischemia. Results must be interpreted within the clinical setting. 1.Non-ischemic pathology can also cause elevated troponin levels (e.g., acute pulmonary embolism, myocarditis, pericarditis, heart failure, intracranial injury, rhabdomyolisis, sepsis, shock and renal insufficiency). 2.Approximately 1% of healthy adults have elevated troponin levels. 3.Analytical false positive results rarely occur(due to multiple interferences such as heterophile antibodies). Performed By: #### 2 [id number] #### [place] [id number] URINALYSISon 02-24-2018 Bilirubin [Mass/Vol] Negative Normal NORMAL: NEGATIVE [facility] Comment on above: Performed By: #### 2 25337 #### [facility],[address] [place] [address] Blood Negative Normal NORMAL: NEGATIVE [facility] Comment on above: Performed By: #### 2 50061 #### [facility],[address] [place] [address] Clarity (U) clear Normal NORMAL: CLEAR [facility] Comment on above: Performed By: #### 2 95342 #### [facility],[address] [place], [place] [id number] Color (U) p.yel Normal NORMAL: YELLOW [facility] Comment on above: Performed By: #### 2 28144 #### [facility],[address] [place] [address] Glucose [Mass/Vol] NORM Normal NORMAL: NORMAL [facility] Comment on above: Performed By: #### 2 72832 #### [facility],[address] [place], [place] [id number] Ketone Negative Normal NORMAL: NEGATIVE [facility] Comment on above: Performed By: #### 2 58000 #### [facility],[address] [place], [place] [id number] Microscopic NOT INDICATED Normal [facility] Comment on above: Performed By: #### 2 21920 #### [facility],[address] [place] [address] Nitrite Ql (U) Negative Normal NORMAL: NEGATIVE [facility] Comment on above: Performed By: #### 2 09023 #### [facility],[address] [place] [address] pH (Bld) 6.5 Normal NORMAL: 5.0-8.0 [facility] Comment on above: Performed By: #### 2 45775 #### [facility],[address] [place] [address] Protein (U) [Mass/Vol] Negative Normal GIOVANNA L: NEGATIVE [facility] Comment on above: Performed By: #### 2 33428 #### [facility],[address] [place] [address] Sp [place] 1.010 Normal NORMAL: 1.010-1.030 [facility] Comment on above: Performed By: #### 2 06092 #### [facility],[address] [place] [address] Specimen type Nom (Spec) Void Normal [facility] Comment on above: Performed By: #### 2 27659 #### [facility],[address] [place] [address] Urobilinog NORM Normal NORMAL: NORMAL [facility] Comment on above: Performed By: #### 2 76987 #### [facility],[address] [place] [address] WBC (Bld) [#/Vol] Negative Normal NORMAL: NEGATIVE [facility] Comment on above: Performed By: #### 2 [id number] #### [facility],[address] [place] [address] No Panel Information Respiratory Panel (PCR) [facility] Work Phone: Vital Signs Date Time Vital Sign Value Performing Clinician Facility 07-14-2024 15:15-0400 Body height 182.[address] Satinder Nunez MD Work Phone: [facility] 07-14-2024 15:15-0400 Body mass index (BMI) [Ratio] 33.3 kg/m2 Dr. Satinder Nunez MD Work Phone: [facility] 07-14-2024 15:15-0400 Body temperature 96.2 [degF] Dr. Satinder Nunez MD Work Phone: [facility] 07-14-2024 15:15-0400 Body weight 111.[address] Satinder Nunez MD Work Phone: [facility] 07-14-2024 15:15-0400 Diastolic blood pressure 80 mm[Hg] Dr. Satinder Nunez MD Work Phone: [facility] 07-14-2024 15:15-0400 Heart rate 71 /min Dr. Satinder Nunez MD Work Phone: [facility] 07-14-2024 15:15-0400 Respiratory rate 16 /min Dr. Satinder Nunez MD Work Phone: [facility] 07-14-2024 15:15-0400 SaO2% (BldA) [Mass fraction] 99 % Dr. Satinder Nunez MD Work Phone: [facility] 07-14-2024 15:15-0400 Systolic blood pressure 136 mm[Hg] Dr. Satinder Nunez MD Work Phone: [facility] 04-07-2024 15:19-0500 Body mass index (BMI) [Ratio] 33 kg/m2 Dr. Satinder Nunez MD Work Phone: [facility] 04-07-2024 15:19-0500 Body temperature 96 [degF] Dr. Satinder Nunez MD Work Phone: [facility] 04-07-2024 15:19-0500 Body weight 110.[address] Satinder Nunez MD Work Phone: [facility] 04-07-2024 15:19-0500 Diastolic blood pressure 94 mm[Hg] Dr. Satinder Nunez MD Work Phone: [facility] 04-07-2024 15:19-0500 Heart rate 71 /min Dr. Satinder Nunez MD Work Phone: [facility] 04-07-2024 15:19-0500 Respiratory rate 16 /min Dr. Satinder Nunez MD Work Phone: [facility] 04-07-2024 15:19-0500 SaO2% (BldA) [Mass fraction] 99 % Dr. Satinder Nunez MD Work Phone: [facility] 04-07-2024 15:19-0500 Systolic blood pressure 146 mm[Hg] Dr. Satinder Nunez MD Work Phone: [facility] 04-10-2023 15:33-0500 Body height 187.[address] Satinder Nunez Work Phone: [facility] 04-10-2023 15:33-0500 Body mass index (BMI) [Ratio] 36.7 kg/m2 Dr. Satinder Nunez Work Phone: [facility] 04-10-2023 15:33-0500 Body temperature 97.7 [degF] Dr. Satinder Nunez Work Phone: [facility] 04-10-2023 15:33-0500 Body weight 129.[address] Satinder Nunez Work Phone: [facility] 04-10-2023 15:33-0500 Diastolic blood pressure 92 mm[Hg] Dr. Satinder Nunez Work Phone: [facility] 04-10-2023 15:33-0500 Heart rate 66 /min Dr. Satinder Nunez Work Phone: [facility] 04-10-2023 15:33-0500 Respiratory rate 18 /min Dr. Satinder Nunez Work Phone: [facility] 04-10-2023 15:33-0500 SaO2% (BldA) [Mass fraction] 98 % Dr. Satinder Nunez Work Phone: [facility] 04-10-2023 15:33-0500 Systolic blood pressure 146 mm[Hg] Dr. Satinder Nunez Work Phone: [facility] 03-27-2023 11:00-0500 Body mass index (BMI) [Ratio] 36.3 kg/m2 Dr. Satinder Nunez Work Phone: [facility] 03-27-2023 11:00-0500 Body temperature 100.3 [degF] Dr. Satinder Nunez Work Phone: [facility] 03-27-2023 11:00-0500 Body weight 130.[address] Satinder Nunez Work Phone: [facility] 03-27-2023 11:00-0500 Diastolic blood pressure 72 mm[Hg] Dr. Satinder Nunez Work Phone: [facility] 03-27-2023 11:00-0500 Heart rate 80 /min Dr. Satinder Nunez Work Phone: [facility] 03-27-2023 11:00-0500 Respiratory rate 16 /min Dr. Satinder Nunez Work Phone: [facility] 03-27-2023 11:00-0500 SaO2% (BldA) [Mass fraction] 98 % Dr. Satinder Nunez Work Phone: [facility] 03-27-2023 11:00-0500 Systolic blood pressure 120 mm[Hg] Dr. Satinder Nunez Work Phone: [facility] 12-18-2022 15:33-0400 Body height 189.[address] Satinder Nunez Work Phone: [facility] 12-18-2022 15:33-0400 Body mass index (BMI) [Ratio] 36.3 kg/m2 Dr. Satinder Nunez Work Phone: [facility] 12-18-2022 15:33-0400 Body temperature 97.9 [degF] Dr. Satinder Nunez Work Phone: [facility] 12-18-2022 15:33-0400 Body weight 130.[address] Satinder Nunez Work Phone: [facility] 12-18-2022 15:33-0400 Diastolic blood pressure 92 mm[Hg] Dr. Satinder Nunez Work Phone: [facility] 12-18-2022 15:33-0400 Heart rate 72 /min Dr. Satinder Nunez Work Phone: [facility] 12-18-2022 15:33-0400 Respiratory rate 16 /min Dr. Satinder Nunez Work Phone: [facility] 12-18-2022 15:33-0400 SaO2% (BldA) [Mass fraction] 98 % Dr. Satinder Nnuez Work Phone: [facility] 12-18-2022 15:33-0400 Systolic blood pressure 132 mm[Hg] Dr. Satinder Nunez Work Phone: [facility] 03-12-2022 15:49-0500 Body temperature 96.2 [degF] Dr. Satinder Nunez Work Phone: [facility] 03-12-2022 15:49-0500 Body weight 138.[address] Satinder Nunez Work Phone: [facility] 03-12-2022 15:49-0500 Diastolic blood pressure 100 mm[Hg] Dr. Satinder Nunez Work Phone: [facility] 03-12-2022 15:49-0500 Heart rate 74 /min Dr. Satinder Nunez Work Phone: [facility] 03-12-2022 15:49-0500 Respiratory rate 18 /min Dr. Satinder Nunez Work Phone: [facility] 03-12-2022 15:49-0500 SaO2% (BldA) [Mass fraction] 99 % Dr. Satinder Nunez Work Phone: [facility] 03-12-2022 15:49-0500 Systolic blood pressure 148 mm[Hg] Dr. Satinder Nunez Work Phone: [facility] 12-05-2021 08:57-0400 Body height 189.[address] Satinder Nunez Work Phone: [facility] 12-05-2021 08:57-0400 Body mass index (BMI) [Ratio] 39.5 kg/m2 Dr. Satinder Nunez Work Phone: [facility] 12-05-2021 08:57-0400 Body temperature 97.6 [degF] Dr. Satinder Nunez Work Phone: [facility] 12-05-2021 08:57-0400 Body weight 141.[address] Satinder Nunez Work Phone: [facility] 12-05-2021 08:57-0400 Diastolic blood pressure 82 mm[Hg] Dr. Satinder Nunez Work Phone: [facility] 12-05-2021 08:57-0400 Heart rate 72 /min Dr. Satinder Nunez Work Phone: [facility] 12-05-2021 08:57-0400 Respiratory rate 14 /min Dr. Satinder Nunez Work Phone: [facility] 12-05-2021 08:57-0400 SaO2% (BldA) [Mass fraction] 100 % Dr. Satinder Nunez Work Phone: [facility] 12-05-2021 08:57-0400 Systolic blood pressure 124 mm[Hg] Dr. Satinder Nunez Work Phone: [facility] 11-20-2021 14:47-0400 Body temperature 103.1 [degF] Dr. Satinder Nunez Work Phone: [facility] Work Phone: 11-20-2021 14:47-0400 Diastolic blood pressure 68 mm[Hg] Dr. Satinder Nunez Work Phone: [facility] Work Phone: 11-20-2021 14:47-0400 Heart rate 76 /min Dr. Satinder Nunez Work Phone: [facility] Work Phone: 11-20-2021 14:47-0400 Respiratory rate 14 /min Dr. Satinder Nunez Work Phone: [facility] Work Phone: 11-20-2021 14:47-0400 SaO2% (BldA) [Mass fraction] 99 % Dr. Satinder Nunez Work Phone: [facility] Work Phone: 11-20-2021 14:47-0400 Systolic blood pressure 126 mm[Hg] Dr. Satinder Nunez Work Phone: [facility] Work Phone: 08-24-2021 08:39-0400 Body height 189.[address] Satinder Nunez Work Phone: [facility] Work Phone: 08-24-2021 08:39-0400 Body mass index (BMI) [Ratio] 42.4 kg/m2 Dr. Satinder Nunez Work Phone: [facility] Work Phone: 08-24-2021 08:39-0400 Body temperature 97.8 [degF] Dr. Satinder Nunez Work Phone: [facility] Work Phone: 08-24-2021 08:39-0400 Body weight 151.[address] Satinder Nunez Work Phone: [facility] Work Phone: 08-24-2021 08:39-0400 Diastolic blood pressure 82 mm[Hg] Dr. Satinder Nunez Work Phone: [facility] Work Phone: 08-24-2021 08:39-0400 Heart rate 66 /min Dr. Satinder Nunez Work Phone: [facility] Work Phone: 08-24-2021 08:39-0400 Respiratory rate 14 /min Dr. Satinder Nunez Work Phone: [facility] Work Phone: 08-24-2021 08:39-0400 SaO2% (BldA) [Mass fraction] 99 % Dr. Satinder Nunez Work Phone: [facility] Work Phone: 08-24-2021 08:39-0400 Systolic blood pressure 130 mm[Hg] Dr. Satinder Nunez Work Phone: [facility] Work Phone: 2021 09:04-0400 Body temperature 98.2 [degF] Dr. Satinder Nunez Work Phone: [facility] Work Phone: 2021 09:04-0400 Body weight 158.[address] Satinder Nunez Work Phone: [facility] Work Phone: 2021 09:04-0400 Diastolic blood pressure 92 mm[Hg] Dr. Satinder Nunez Work Phone: [facility] Work Phone: 2021 09:04-0400 Heart rate 86 /min Dr. Satinder Nunez Work Phone: [facility] Work Phone: 2021 09:04-0400 Respiratory rate 16 /min Dr. Satinder Nunez Work Phone: [facility] Work Phone: 2021 09:04-0400 SaO2% (BldA) [Mass fraction] 97 % Dr. Satinder Nunez Work Phone: [facility] Work Phone: 2021 09:04-0400 Systolic blood pressure 138 mm[Hg] Dr. Satinder Nunez Work Phone: [facility] Work Phone: 2021 09:04-0400 Body temperature 98.2 [degF] Dr. Satinder Nunez Work Phone: [facility] Work Phone: 2021 09:04-0400 Body weight 158.[address] Satinder Nunez Work Phone: [facility] Work Phone: 2021 09:04-0400 Diastolic blood pressure 92 mm[Hg] Dr. Satinder Nunez Work Phone: [facility] Work Phone: 2021 09:04-0400 Heart rate 86 /min Dr. Satinder Nunez Work Phone: [facility] Work Phone: 2021 09:04-0400 Respiratory rate 16 /min Dr. Satinder Nunez Work Phone: [facility] Work Phone: 2021 09:04-0400 SaO2% (BldA) [Mass fraction] 97 % Dr. Satinder Nunez Work Phone: [facility] Work Phone: 2021 09:04-0400 Systolic blood pressure 138 mm[Hg] Dr. Satinder Nunez Work Phone: [facility] Work Phone: 05-25-2021 15:43-0400 Body mass index (BMI) [Ratio] 44.9 kg/m2 Dr. Satinder Nunez Work Phone: [facility] Work Phone: 05-25-2021 15:43-0400 Body temperature 98.1 [degF] Dr. Satinder Nunez Work Phone: [facility] Work Phone: 05-25-2021 15:43-0400 Body weight 161.[address] Satinder Nunez Work Phone: [facility] Work Phone: 05-25-2021 15:43-0400 Diastolic blood pressure 90 mm[Hg] Dr. Satinder Nunez Work Phone: [facility] Work Phone: 05-25-2021 15:43-0400 Heart rate 80 /min Dr. Satinder Nunez Work Phone: [facility] Work Phone: 05-25-2021 15:43-0400 Respiratory rate 14 /min Dr. Satinder Nunez Work Phone: [facility] Work Phone: 05-25-2021 15:43-0400 SaO2% (BldA) [Mass fraction] 99 % Dr. Satinder Nunez Work Phone: [facility] Work Phone: 05-25-2021 15:43-0400 Systolic blood pressure 154 mm[Hg] Dr. Satinder Nunez Work Phone: [facility] Work Phone: 05-25-2021 15:43-0400 Body height 189.[address] Satinder Nunez Work Phone: [facility] Work Phone: 05-25-2021 15:43-0400 Body mass index (BMI) [Ratio] 44.9 kg/m2 Dr. Satinder Nunez Work Phone: [facility] Work Phone: 05-25-2021 15:43-0400 Body temperature 98.1 [degF] Dr. Satinder Nunez Work Phone: [facility] Work Phone: 05-25-2021 15:43-0400 Body weight 161.[address] Satinder Nunez Work Phone: [facility] Work Phone: 05-25-2021 15:43-0400 Diastolic blood pressure 90 mm[Hg] Dr. Satinder Nunez Work Phone: [facility] Work Phone: 05-25-2021 15:43-0400 Heart rate 80 /min Dr. Satinder Nunez Work Phone: [facility] Work Phone: 05-25-2021 15:43-0400 Respiratory rate 14 /min Dr. Satinder Nunez Work Phone: [facility] Work Phone: 05-25-2021 15:43-0400 SaO2% (BldA) [Mass fraction] 99 % Dr. Satinder Nunez Work Phone: [facility] Work Phone: 05-25-2021 15:43-0400 Systolic blood pressure 154 mm[Hg] Dr. Satinder Nunez Work Phone: [facility] Work Phone: 05-22-2021 09:45-0400 Body temperature 98.42 [degF] CHILO WHITMORE DO [facility] 05-22-2021 09:45-0400 Body weight 163.2 kg CHILO CRT DO [facility] 05-22-2021 09:45-0400 Diastolic blood pressure 101 mm[Hg] CHILO CRT DO [facility] 05-22-2021 09:45-0400 Heart rate 77 /min CHILO CRT [facility] 05-22-2021 09:45-0400 Mean blood pressure 119 mm[Hg] CHILO CRT DO [facility] 05-22-2021 09:45-0400 Respiratory rate 16 /min CHILO CRT [facility] 05-22-2021 09:45-0400 Systolic blood pressure 156 mm[Hg] CHILO CRT [facility] 04-27-2021 09:24-0500 Body temperature 96.6 [degF] Dr. Satinder Nunez Work Phone: [facility] Work Phone: 04-27-2021 09:24-0500 Body weight 161.[address] Satinder Nunez Work Phone: [facility] Work Phone: 04-27-2021 09:24-0500 Diastolic blood pressure 82 mm[Hg] Dr. Satinder Nunez Work Phone: [facility] Work Phone: 04-27-2021 09:24-0500 Heart rate 60 /min Dr. Satinder Nunez Work Phone: [facility] Work Phone: 04-27-2021 09:24-0500 Respiratory rate 16 /min Dr. Satinder Nunez Work Phone: [facility] Work Phone: 04-27-2021 09:24-0500 SaO2% (BldA) [Mass fraction] 98 % Dr. Satinder Nunez Work Phone: [facility] Work Phone: 04-27-2021 09:24-0500 Systolic blood pressure 140 mm[Hg] Dr. Satinder Nunez Work Phone: [facility] Work Phone: 04-17-2021 09:05-0500 Diastolic blood pressure 80 mm[Hg] Dr. Satinder Nunez Work Phone: [facility] Work Phone: 04-17-2021 09:05-0500 Heart rate 74 /min Dr. Satinder Nunez Work Phone: [facility] Work Phone: 04-17-2021 09:05-0500 Systolic blood pressure 128 mm[Hg] Dr. Satinder Nunez Work Phone: [facility] Work Phone: 04-13-2021 10:39-0500 Body mass index (BMI) [Ratio] 44.9 kg/m2 Dr. Satinder Nunez Work Phone: [facility] Work Phone: 04-13-2021 10:39-0500 Body temperature 99.2 [degF] Dr. Satinder Nunez Work Phone: [facility] Work Phone: 04-13-2021 10:39-0500 Body weight 161.[address] Satinder Nunez Work Phone: [facility] Work Phone: 04-13-2021 10:39-0500 Diastolic blood pressure 100 mm[Hg] Dr. Satinder Nunez Work Phone: [facility] Work Phone: 04-13-2021 10:39-0500 Heart rate 91 /min Dr. Satinder Nunez Work Phone: [facility] Work Phone: 04-13-2021 10:39-0500 Respiratory rate 14 /min Dr. Satinder Nunez Work Phone: [facility] Work Phone: 04-13-2021 10:39-0500 SaO2% (BldA) [Mass fraction] 99 % Dr. Satinder Nunez Work Phone: [facility] Work Phone: 04-13-2021 10:39-0500 Systolic blood pressure 172 mm[Hg] Dr. Satinder Nunez Work Phone: [facility] Work Phone: 04-09-2021 13:59-0500 Diastolic blood pressure 90 mm[Hg] DR BRADY PASCAL MD [facility] 04-09-2021 13:59-0500 Heart rate 88 /min DR BRADY PASCAL MD [facility] 04-09-2021 13:59-0500 Respiratory rate 20 /min DR BRADY PASCAL MD [facility] 04-09-2021 13:59-0500 Systolic blood pressure 159 mm[Hg] DR BRADY PASCAL MD [facility] 04-09-2021 13:47-0500 Diastolic blood pressure 83 mm[Hg] DR BRADY PASCAL MD [facility] 04-09-2021 13:47-0500 Heart rate 96 /min DR BRADY PASCAL MD [facility] 04-09-2021 13:47-0500 Respiratory rate 20 /min DR BRADY PASCAL MD [facility] 04-09-2021 13:47-0500 Systolic blood pressure 174 mm[Hg] DR BRADY PASCAL MD [facility] 04-09-2021 12:45-0500 Body temperature 98.06 [degF] DR BRADY PASCAL MD [facility] 04-09-2021 12:45-0500 Diastolic blood pressure 93 mm[Hg] DR BARDY PASCAL MD [facility] [facility] 04-09-2021 12:45-0500 Heart rate 98 /min DR BRADY PASCAL MD [facility] 04-09-2021 12:45-0500 Respiratory rate 22 /min DR BRADY PASCAL MD [facility] 04-09-2021 12:45-0500 Systolic blood pressure 190 mm[Hg] DR BRADY PASCAL MD [facility] Encounters Encounter Date Encounter Type Care Provider Facility Start: 07-14-2024 End: 07-14-[address] Satinder Nunez MD -[facility] Work Phone: Start: 07-14-2024 End: 07-14-[address] Satinder Nunez MD Work Phone: [facility] Work Phone: Start: 07-14-2024 End: 07-14-2024 [facility] Start: 04-07-2024 End: 04-07-[address] Satinder Nunez MD -[facility] Work Phone: Start: 04-07-2024 End: 04-07-2024 [facility] Start: 02-17-2024 End: 02-17-2024 Emergency department patient visit [facility] Facility:[facility] Start: 01-08-2024 End: 01-08-2024 [facility]ulatory [facility] Start: 01-08-2024 End: 01-08-2024 ambulatory [facility] Start: 10-03-2023 End: 10-03-2023 [facility] Start: 10-03-2023 End: 10-03-2023 [facility]ulatory [facility] Start: 04-10-2023 End: 04-10-[address] Satinder Nunez Work Phone: [facility] Work Phone: Start: 04-10-2023 End: 04-10-[address] Satinder Nunez Work Phone: [facility] Work Phone: Start: 03-28-2023 End: 03-28-[address] Satinder Nunez Work Phone: [facility] Work Phone: Start: 03-27-2023 End: 03-27-[address] Satinder Nunez Work Phone: [facility] Work Phone: Start: 12-18-2022 End: 12-18-[address] Satinder Nunez Work Phone: [facility] Work Phone: Start: 12-18-2022 End: 12-18-[address] Satinder Nunez Work Phone: [facility] Work Phone: Start: 10-04-2022 End: 10-04-[address] Satinder Nunez Work Phone: [facility] Work Phone: Start: 03-12-2022 End: 03-12-[address] Satinder Nunez Work Phone: [facility] Work Phone: Start: 03-12-2022 End: 03-12-[address] Satinder Nunez Work Phone: [facility] Start: 12-05-2021 End: 12-05-[address] Satinder Nunez Work Phone: [facility] Start: 11-20-2021 End: 11-20-[address] Satinder Nunez Work Phone: [facility] Work Phone: Start: 11-20-2021 End: 11-20-[address] [facility] Start: 11-20-2021 End: 11-20-[address] Satinder Nunez Work Phone: [facility] Start: 08-24-2021 End: 08-24-[address] Satinder Nunez Work Phone: [facility] Start: 2021 End: [address] Satinder Nunez Work Phone: [facility] Start: 05-25-2021 End: 05-25-[address] Satinder Nunez Work Phone: [facility] Start: 05-22-2021 End: 05-22-2021 Emergency department patient visit CHILO HAIM [facility] Start: 04-27-2021 End: 04-27-[address] Satinder Nunez Work Phone: [facility] Start: 04-17-2021 End: 04-17-[address] Satinder Nunez Work Phone: [facility] Start: 04-13-2021 End: 04-13-[address] [facility]atin[facility] Start: 04-13-2021 End: 04-13-[address] Satinder Nunez Work Phone: [facility] Start: 04-09-2021 End: 04-09-2021 Emergency department patient visit DR BRADY PASCAL MD [facility] Start: 10-08-2018 End: 10-08-2018 Emergency department patient visit ZHENG LANGSTON [facility] Start: 10-08-2018 Patient encounter procedure LEILA SAWYER [facility] Start: 04-17-2018 End: 04-17-2018 Emergency department patient visit RONNI SCHWARTZ [facility] Start: 02-24-2018 End: 02-24-2018 Emergency department patient visit YVES THOMAS [facility] Procedures Date Procedure Procedure Detail Performing Clinician Start: 03-28-2023 CT angiography of ch est with contrast Dr. Satinder Nunez Work Phone: Start: 03-27-2023 SARS-CoV-2, Influenz a & RSV (PCR) Dr. Satinder Nunez Work Phone: Start: 10-08-2018 Microscopic examinat ion of blood, culture YVES THOMAS Comment on above: Performed By: #### [id number] #### [facility],[address] [place] [address] Start: 10-07-2018 Microscopic examinat ion of blood, culture YVES THOMAS Comment on above: Performed By: #### [id number] #### [facility],[address] [place] [address] Start: 02-24-2018 Urinalysis YVES WILLINGHAM Comment on above: Result Comment: URIN ALYSIS Performed By: #### [id number] #### [place] [address] Respiratory Panel (PCR) Dr. Satinder Nunez Work Phone: Plan of Treatment Date Care Activity Detail Author Start: 07-14-2024 CBC W Auto Differential panel - Blood [facility] Start: 07-14-2024 Comprehensive metabolic 2000 panel - Serum or Plasma [facility] Start: 07-14-2024 Lipid 1996 panel - Serum or Plasma [facility] Start: 07-14-2024 Thyroid stimulating hormone measurement [facility] Start: 07-14-2024 Patient referral [facility] Work Phone: Start: 03-12-2022 Patient referral [facility] Work Phone: Start: 12-05-2021 Patient referral [facility] Work Phone: Start: 11-20-2021 Sars-cov-2 detection by dna/rna SARS-COV-2 COVID-19 AMP PRB [facility] Work Phone: Alanine aminotransfe rase [Enzymatic activity/volume] in Serum or Plasma [facility] Albumin [Mass/volume ] in Serum or Plasma [facility] Alkaline phosphatase [Enzymatic activity/volume] in Serum or Plasma [facility] Anion gap in Serum or Plasma [facility] Bilirubin, total measurement [facility] BUN/Creatinine ratio [facility] Calcium [Mass/volume ] in Serum or Plasma [facility] Carbon dioxide, tota l [Moles/volume] in Central venous blood [facility] Cholesterol [Mass/vo lume] in Serum or Plasma [facility] Cholesterol in HDL [Mass/volume] in Serum or Plasma [facility] Creatinine [Mass/vol ume] in Serum or Plasma [facility] Erythrocyte mean cor puscular volume determination [facility] Glucose [Mass/volume ] in Serum or Plasma [facility] Hematocrit [Volume F raction] of Blood [facility] Hemoglobin [Mass/vol ume] in Blood [facility] Leukocytes [#/volume ] in Blood [facility] Low density lipoprot ein cholesterol measurement [facility] Mean corpuscular hem oglobin concentration determination [facility] Mean corpuscular hem oglobin determination [facility] Measurement of renal function [facility] Neutrophil count [facility] Neutrophil percent differential count [facility] Patient referral [facility] Work Phone: Platelets [#/volume] in Blood [facility] Polysomnography [facility] Potassium measurement [facility] Red blood cell count [facility] Red cell distributio n width determination [facility] Serum chloride measurement [facility] Sodium measurement [facility] Total cholesterol:HD L ratio measurement [facility] Total protein measurement [facility] Triglycerides measurement [facility] Urea nitrogen [Mass/ volume] in Serum or Plasma [facility] VLDL cholesterol measurement [facility] Immunizations Immunization Date Immunization Notes Care Provider Fa cility 03-19-2019 Flucelvax Quad [id number] (PF) (flu vac qs 2019(4 yr up)CD(PF)) 60 mcg ([address] Satinder Nunez Work Phone: [facility] Work Phone: Payers Date Payer Category Payer Self-pay [id number] 2023 Unknown [id number] 1979 Unknown [id number] 2.16.84 [id number] 1979 Unknown [id number] 2.16.84 [id number] 1979 Unknown [id number] 2.16.84 [id number] 1979 Unknown [id number] 2.16.84 [id number] Medicaid [id number] Unknown [id number] Unknown [id number] Unknown [id number] 2.16.8 [id number] Unknown [id number] 2.16.8 [id number] Unknown [id number] 2.16.8 [id number] Unknown [id number] 2.16.8 [id number] Unknown [id number] 2.16.8 [id number] Unknown [id number] 2.16.8 [id number] Unknown [id number] 2.16.8 [id number] Unknown [id number] 2.16.8 [id number] Social History Date Type Detail Facility [facility] Start: 1980 Sex Assigned At Male A [facility] Start: 05-22-2021 End: 02-17-2024 Tobacco smoking status Never smoked tobacco (finding) [facility] Start: 2021 End: 04-10-2023 Tobacco smoking status GAIS Unknown if ever smoked [facility] Functional Status Date Assessment Result Facility 05-22-2021 Functional Status [facility] Mental Status Date Assessment Result Facility 05-22-2021 Mental Status [facility] Clinical Notes 04-09-2021 to 04-07-2024 Note Date & Type Note Facility 04-07-2024 Evaluation note Diagnosis Onset Date Resolution Anxiety and depression chronic Fe 2024 3:15pm HTN (hypertension) chronic 2024 3:15pm Hyperlipidemia chronic March 272024 3:15pm Hypothyroidism chronic March 272024 3:15pm [facility] Work Phone: [phone] Evaluation note* Diagnosis Onset Date Resolution Status Admit Date Anxiety and depression chronic Fe 2024 3:15pm HTN (hypertension) chronic Februa ry 12th, 2025 3:15pm Hyperlipidemia chronic March 272024 3:15pm Hypothyroidism chronic March 272024 3:15pm HTN (hypertension) chronic July 142024 3:11pm Hypothyroidism chronic July 14, 2024 3:11pm Obesity (BMI 30-39.9) chronic July 14, 2024 3:11pm JOSEPHINE (obstructive sleep apnea) chroni c July 14, 2024 3:11pm Somnambulism chronic July 14 3:11pm [facility] Work Phone: [phone] 977-151903-29-2022 Hospital Discharge instructions Patient Education 05/22/2021 11:13:34 Blurred Vision Blurred Vision Blurred vision is when your vision is no longer sharp and you can t see small details. Any changes in your vision, whether sudden or over time, should be checked out by an engagement specialist. Vision changes can be caused by many [...] sidewalks. Follow-up care Follow up with an engagement specialist or as advised. There are two types of eye doctors you can consult: Loom Operator. This is a licensed doctor of optometry. Optometrists are not medical doctors. They specialize in eye exams and may diagnose some eye problems. They also prescribe glasses and contact lenses. Welder Production Line Arc. This is a medical doctor who specializes in eye care. Ophthalmologists diagnose and treat all eye diseases, prescribe medicines, and perform eye surgery. They may also prescribe glasses and contact lenses. An liquor merchant can provide a basic screening eye exam for much less cost than an chief airport guide. The liquor merchant can tell you if your condition needs the services of an chief airport guide. When to seek medical advice Call your [...] Vision dims Part or full vision loss [phone] [employer]. [address] [place] [address]. All rights reserved. This information is not intended as a substitute for professional medical care. Always follow yourhealthcare professional's instructions. Follow Up Care 05/22/2021 09:37:10 With:[facility] Address: [address] [place] [address]- When:2-4 days With:[facility] Address: When:2-4 days [facility] 02-14-2022 Hospital Discharge instructions Patient Education 04/09/2021 14:01:12 Anxiety Reaction Anxiety Reaction Anxiety is the feeling we all get when we think something bad might happen. It is a normal responseto stress and usually causes only a mild [...] relieved by rest and mild pain reliever [phone] [facility]. [address] [place] [address], [place] [address]. All rights reserved. This information is not intended as a substitute for professional medical care. Always follow yourhealthcare professional's instructions. 04/09/2021 14:01:05 Shortness of Breath [...] healthcare provider before starting to exercise, especially ifyou have other medical problems. Cut down on [...] or as directed by your healthcare provider [phone] [employer]. [address] [place] [address], [place] [address]. All rights reserved. This information is not intended as a substitute for professional medical care. Always follow [facility] professional's instructions. 04/09/2021 14:00:26 DIZZINESS, Unk Cause [...] face -- Difficulty with speech or vision [phone] [employer]. [address] [place] [address], [place] [address]. All rights reserved. This information is not intended as a substitute for professional medical care. Always follow yourhealthcare professional's instructions. Follow Up Care 04/09/2021 12:43:46 With:LEILA SILVERIO Address: [address] [place] [address] [place] [phone] Business (1) When:2-4 days Comments:Return to ED if symptoms worsen [facility] Evaluation + Plan note No data available for this section [facility] Evaluation note* Diagnosis Onset Date Resolution Status Anxiety chronic HTN (hypertension) chronic Dental infection acute Anxiety chronic Bipolar affect, depressed ch ronic Depression chronic HTN (hypertension) chronic Metabolic disorder chronic JOSEPHINE (obstructive sleep apnea) chronic Anxiety chronic Bipolar affect, depressed ch ronic JOSEPHINE (obstructive sleep apnea) chronic Anxiety chronic Bipolar affect, depressed ch ronic JOSEPHINE (obstructive sleep apnea) chronic [facility] Work Phone: Evaluation note* Diagnosis Onset Date Resolution Status Anxiety chronic Bipolar affect, depressed ch ronic JOSEPHINE (obstructive sleep apnea) chronic Anxiety chronic Bipolar affect, depressed ch ronic JOSEPHINE (obstructive sleep apnea) chronic Hypogonadism acute Vitamin deficiency acute Bipolar affect, depressed ch ronic Hypothyroidism chronic JOSEPHINE (obstructive sleep apnea) chronic [facility] Work Phone: Evaluation note* Diagnosis Onset Date Resolution Status Hypogonadism acute Vitamin deficiency acute Bipolar affect, depressed ch ronic Hypothyroidism chronic JOSEPHINE (obstructive sleep apnea) chronic Fever noneactive URI (upper respiratory infection) noneactive [facility] Work Phone: Evaluation note* Diagnosis Onset Date Resolution Status Allergic rhinitis acute Hypogonadism acute Bipolar affect, depressed ch ronic HTN (hypertension) chronic JOSEPHINE (obstructive sleep apnea) chronic Motion sickness noneactive Hyperlipidemia acute Vitamin deficiency acute Bipolar affect, depressed ch ronic HTN (hypertension) chronic Hypothyroidism chronic Metabolic disorder chronic [facility] Work Phone: Evaluation note* Diagnosis Onset Date Resolution Status Obesity (BMI 30-39.9) acute Anxiety and depression chron ic HTN (hypertension) chronic Hyperlipidemia chronic Hypothyroidism chronic [facility] Work Phone: Evaluation note* Diagnosis Onset Date Resolution Status Obesity (BMI 30-39.9) acute Anxiety and depression chron ic HTN (hypertension) chronic Hyperlipidemia chronic Hypothyroidism chronic Cough acute Pleuritic chest pain acute Viral URI with cough acute URI (upper respiratory infection) acute Bipolar depression chronic HTN (hypertension) chronic Hypothyroidism [facility] Work Phone: Progress note No data available for this section [facility] Summary Purpose Family History No Family History Records Found Relationship Condition Age at Onset Recorded Date/T carlita father Alcoholism Unknown grandfather Malignant neoplasm of colon Unknown brother Anxiety and depression Unknown Advance Directives No Advanced Directives Records FoundNo Advanced Directives Records FoundNo Advanced Directives Records Found Chief Complaint and Reason for Visit Chief Complaint 3 M FU BP check 2 W FU 1 M FU 1 M FU Reason for Visit Anxiety HTN (hypertension) Dental infection Anxiety Bipolar affect, depressed Depression HTN (hypertension) Metabolic disorder JOSEPHINE (obstructive sleep apnea) Anxiety Bipolar affect, depressed JOSEPHINE (obstructive sleep apnea) Anxiety Bipolar affect, depressed JOSEPHINE (obstructive sleep apnea) Chief Complaint 1 M FU 1 M FU 2 M FU Reason for Visit Anxiety Bipolar affect, depressed JOSEPHINE (obstructive sleep apnea) Anxiety Bipolar affect, depressed JOSEPHINE (obstructive sleep apnea) Hypogonadism Vitamin deficiency Bipolar affect, depressed Hypothyroidism JOSEPHINE (obstructive sleep apnea) Chief Complaint 2 M FU FEVER, SORE THRAOT, COVID- Reason for Visit Hypogonadism Vitamin deficiency Bipolar affect, depressed Hypothyroidism JOSEPHINE (obstructive sleep apnea) Fever URI (upper respiratory infection) Chief Complaint 3 M FU 3 M FU Reason for Visit Allergic rhinitis Hypogonadism Bipolar affect, depressed HTN (hypertension) JOSEPHINE (obstructive sleep apnea) Motion sickness Hyperlipidemia Vitamin deficiency Bipolar affect, depressed HTN (hypertension) Hypothyroidism Metabolic disorder Chief Complaint PE NON DOT DRUG SCRE EN/ GOJO MED FOLLOW UP Reason for Visit Obesity (BMI 30-39.9 ) Anxiety and depression HTN (hypertension) Hyperlipidemia Hypothyroidism Chief Complaint MED FOLLOW UP acute - high fever/chest congestion ELEVATED D-DIMER, COUGH, PLEURITIC CHEST PAIN, PE 3 M FU Reason for Visit Obesity (BMI 30-39.9 ) Anxiety and depression HTN (hypertension) Hyperlipidemia Hypothyroidism Cough Pleuritic chest pain Viral URI with cough URI (upper respiratory infection) Bipolar depression HTN (hypertension) Hypothyroidism Chief Complaint Admit Date 3 M FU April 07, 2024 3:15pm 3 M FU July 14, 2024 3:11p m Reason for Visit Admit Date Anxiety and depression April 07 3:15pm HTN (hypertension) April 07, 2024 3:15pm Hyperlipidemia April 07, 2024 3:15pm Hypothyroidism April 07, 2024 3:15pm Reason for Visit Admit Date Anxiety and depression April 07 3:15pm HTN (hypertension) April 07, 2024 3:15pm Hyperlipidemia April 07, 2024 3:15pm Hypothyroidism April 07, 2024 3:15pm HTN (hypertension) July 14, 2024 3:11p m Hypothyroidism July 14, 2024 3:11p m Obesity (BMI 30-39.9) July 14, 2024 3:1 1pm JOSEPHINE (obstructive sleep apnea) July 14, 2024 3:11pm Somnambulism July 14, 2024 3:11p m Additional Source Comments (unrecognized sect ion and content) No Status Records FoundNo Status Records FoundNo Status Records Found INFORMATION SOURCE (unrecogn ized section and content) DATE CREATED AUTHOR 10/13/[address] [facility] DATE CREATED AUTHOR AUTHOR'S ORGANIZ ATION 06/11/2021 [facility] ([place]) DATE CREATED AUTHOR AUTHOR'S ORGANIZ ATION 07/21/2024 [facility] Care Team (unrecognized sect ion and content) Team Status: Active Member Role Status Dates Dr. Satinder Nunez MD Primary Care Provider Active Team Status: Inactive Member Role Status Dates Dr. Satinder Nunez MD Primary Care Provider, Refer ring Provider Active Abdulkadir Marina DINKEY LOCOMOTIVE ENGINEER, DINKEY LOCOMOTIVE ENGINEER-C Attending Provider Active Team Status: Inactive Member Role Status Dates Dr. Satinder Nunez MD Primary Care Provider Active Abdulkadir Marina DINKEY LOCOMOTIVE ENGINEER, DINKEY LOCOMOTIVE ENGINEER-C Attending Provider, Referring Prov ider Active Team Status: Inactive Member Role Status Dates Dr. Satinder Nunez MD Primary Care Provider, Refer ring Provider Active Rohit [place], [place] Attending Provider Active Team Status: Inactive Member Role Status Dates Dr. Satinder Nunez MD Primary Care P pierce, Attending Provider, Referring Provider Active Team Status: Inactive Member Role Status Dates Dr. Satinder Nunez MD Primary Care Provider, Refer ring Provider Active ERIN Hernández Attending Provider Active Team Status: Inactive Member Role Status Dates Dr. Satinder Nunez MD Primary Care Provider, Atten ding Provider Active Team Status: Inactive Member Role Status Dates Dr. Satinder Nunez MD Primary Care Provider Active ERIN Hernández Attending Provider, Referring Pro vider Active Team Status: Inactive Member Role Status Dates Dr. Satinder Nunez MD Primary Care Provider Active Start: April 07, 2024 End: April 07, 2024 Dr. Satinder Nunez MD Attending Provider Active Start: April 07, 2024 End: April 07, 2024 Dr. Satinder Nunez MD Referring Provider Active Start: April 07, 2024 End: April 07, 2024 Team Status: Inactive Member Role Status Dates Dr. Satinder Nunez MD Primary Care Provider Active Start: July 14, 2024 End: July 14, 2024 Dr. Satinder Nunez MD Attending Provider Active Start: July 14, 2024 End: July 14, 2024 Dr. Satinder Nunez MD Referring Provider Active Start: July 14, 2024 End: July 14, 2024 Team Status: Active Member Role Status Dates Dr. Satinedr Nunez MD Primary Care Provider Active Start: July 14, 2024 Dr. Satinder Nunez MD Attending Provider Active Start: July 14, 2024 Dr. Satinder Nunez MD Referring Provider Active Start: July 14, 2024 Goals (unrecognized section and content) Goals may be documented in a n alternate section FOR RECORDS PERTAINING TO PATIENTS WHO ARE [...] BE BASED ON THE PRIMARY CLINICAL RECORDS. [facility]. provides no warranty or guarantee of the accuracy or completeness of information in this document.
== END | disposition home or self-care (01) ==
LOC: LABSPEC 15:28
PROVIDERS: PCP Internal Medicine; Referring Provider Internal Medicine; Visit Provider Internal Medicine
DX: D64.9 Anemia, unspecified (principal)
CPT/HCPCS: 82274

== ENCOUNTER → 2024-10-26 | Outpatient (CLI) | payer BC, SELFPAY ==
[2024-10-26 15:31] LABS: Hematocrit 32.7 % (40-54); Hemoglobin 11.3 g/dL (13.0-16.5); Immature Granulocytes Count 0.010 X10^3/uL (0.0-0.0); Mean Corp Hgb Conc 34.6 g/dL (32-36); Mean Corpuscular Volume 92.9 fL (80-94); Mean Platelet Vol. 10.5 fl (6.2-12.0); NRBC Flagged by Analyzer 0 % (0-5); Platelet Count 199 K/mm3 (150-450); RBC Distribution Width CV 12.5 % (11.6-14.6); RBC Distribution Width SD 42.7 fl (35.1-43.9); Red Blood Count 3.52 M/mm3 (4.6-6.2); White Blood Count 4.6 K/mm3 (4.4-11.0)
[2024-10-26 16:09] LABS: Anion Gap 12 (5-15); BUN 15 mg/dL (4-19); BUN/Creat Ratio 14.4 RATIO (10-20); Calcium,Total 9.0 mg/dL (7.6-11.0); Carbon Dioxide 25.6 mmol/L (21.0-32.0); Chloride 101 mmol/L (98-108); Glucose 99 mg/dL (70-99); Potassium 4.6 mmol/L (3.3-5.1)
== END | disposition home or self-care (01) ==
LOC: LAB 15:16
PROVIDERS: PCP Internal Medicine; Referring Provider Internal Medicine; Visit Provider Internal Medicine
DX: I10 Essential (primary) hypertension (principal)
CPT/HCPCS: 36415; 80048; 85025

== ENCOUNTER → 2025-02-04 | Outpatient (CLI) | payer BC, SELFPAY ==
[2025-02-04 15:23] LABS: Mucous, Urine 0 SEEN /hpf (<or=2+)
[2025-02-04 17:31] LABS: Color, Urine Straw (Yellow); Glucose, Dipstick Normal (Normal); Ketone-Dipstick Negative (Negative); Leukocyte Esterase-Dipstick Negative /ul (Negative); Nitrite-Dipstick Negative (Negative); Occult Blood-Urine Negative /ul (Negative); Protein-Dipstick Negative (Negative); Specific Gravity, Urine 1.010 (1.002-1.030); Urine Bilirubin Dipstick Negative (Negative)
[2025-02-04 17:37] LABS: Hematocrit 33.5 % (40-54); Hemoglobin 11.3 g/dL (13.0-16.5); Immature Granulocytes Count 0.010 X10^3/uL (0.0-0.0); Mean Corp Hgb Conc 33.7 g/dL (32-36); Mean Corpuscular Volume 93.6 fL (80-94); Mean Platelet Vol. 11.3 fl (6.2-12.0); NRBC Flagged by Analyzer 0 % (0-5); Platelet Count 189 K/mm3 (150-450); RBC Distribution Width CV 11.9 % (11.6-14.6); RBC Distribution Width SD 41.1 fl (35.1-43.9); Red Blood Count 3.58 M/mm3 (4.6-6.2); White Blood Count 3.8 K/mm3 (4.4-11.0)
[2025-02-04 17:56] LABS: AST(SGOT) 28 U/L (<=37); Alanine Aminotransfer ALT/SGPT 18 U/L (<=46); Albumin, Serum 4.9 g/dL (3.5-5.0); Alkaline Phosphatase 65 U/L (40-129); Anion Gap 11 (5-15); BUN 24 mg/dL (4-19); BUN/Creat Ratio 21.1 RATIO (10-20); Calcium,Total 9.3 mg/dL (7.6-11.0); Carbon Dioxide 25.4 mmol/L (21.0-32.0); Chloride 100 mmol/L (98-108); Cholesterol 215 mg/dL (<=200); Globulin 2.6 g/dL (2.2-4.2); Glucose 92 mg/dL (70-99); Low Density Lipoprotein Calc. 108 mg/dL; Potassium 4.6 mmol/L (3.3-5.1); Triglycerides 41 mg/dL; Very Low Density Lipoprotein 8 mg/dL (5-40); cholesterol:hdl ratio screen 2.16
[2025-02-05 00:06] LABS: Red Blood Cells-Urine 0-5 SEEN /hpf (0-5); Squamous Epithelial Cells - UA 0-5 SEEN /hpf (0-5)
== END | disposition home or self-care (01) ==
LOC: EPLAB 15:22
PROVIDERS: PCP Internal Medicine; Visit Provider Internal Medicine
DX: I10 Essential (primary) hypertension (principal); E78.5 Hyperlipidemia, unspecified; E03.9 Hypothyroidism, unspecified; R10.24 Suprapubic pain
CPT/HCPCS: 36415; 80053; 80061; 81001; 84443; 85025